=== PATIENT | male | born 1945 | race Caucasian/White ===

== ENCOUNTER 2017-01-17 02:24 | Emergency (ER) | payer OTHER, MEDICARE ==
[~2017-01-17 02:24] MED LIST: /ATOR40TA PO; /CARB4TA PO; AMLO10TA2 PO; ASPI1TAB PO; ASPI32ECTA PO; ASPI81CH3 PO; ASPI81TA13 PO; ASPI81TA85 PO; ATOR1TAB18 PO; BUSP15TA47 PO; CARB1TAB20 PO; CELE40TA PO; CITA20TA2 PO; CITA40TA PO; CITA40TA4 PO; CLOP75TA2 PO; DIAZ10TA2 PO; DIOV320T PO; ERGO500014 PO; FLAG500T PO; FOLI1TAB2 PO; FOLI1TAB86 PO; PANT40TA2 PO; SIMV20TA2 PO; TYLE325T5 PO; VALS1TAB48 PO; VITA-121 PO; VITA10002 PO; VITA500047 PO; ZOLP-189 PO; ZOLP10TA2 PO; avapro; carbamazepine PO; plavix PO
[2017-01-17 03:43] LABS: BASO % 0.6 % (0.0-1.0); EOS # 0.4 K/mm3 (0.0-0.50); EOS % 5.9 % (0.0-3.0); LARGE UNSTAINED CELL # 0.1 K/mm3 (0.0-0.4); LARGE UNSTAINED CELL % 1.6 % (0.0-4.0); LYMPH # 0.9 K/mm3 (1.5-4.5); MEAN CORPUSCULAR HEMOGLOBIN 30.3 pg (27.0-33.0); MEAN CORPUSCULAR HGB CONC 32.3 g/dl (32.0-36.5); MEAN CORPUSCULAR VOLUME 93.6 fl (80.0-96.0); MONO # 0.4 K/mm3 (0.0-0.8); MONO % 6.3 % (0.0-5.0); NEUTROPHILS # 4.7 K/mm3 (1.8-7.7); NEUTROPHILS % 73.7 % (36.0-66.0); PLATELET COUNT, AUTOMATED 159 k/mm3 (150-450); RED CELL DISTRIBUTION WIDTH 12.9 % (11.5-14.5); WHITE BLOOD COUNT 6.4 K/mm3 (4.0-10.0)
--- NOTE | 2017-01-17 04:00 | REPUSA ---
CLINICAL HISTORY: Syncope. TECHNIQUE: Multiple axial brain CT scan sections were obtained from base to vertex without contrast a dministration. COMMENTS: The study shows normal configuration of sella turcica. There are no intra or extra-axial collections. There is no mass effect or midline shift. There is no evidence of hematoma formation. No hydrocephal us is present. No abnormal calcifications are noted. No significant abnormalities are seen either in the posterior fossa or supratentorial compartment. The sinuses and mastoid air cells are patent. IMPRESSION: No evidence of acute intracranial pathology. Thank you for your kind referral of this patient.
[2017-01-17 04:06] LABS: CALCIUM LEVEL 7.8 MG/DL (8.8-10.2); CARBAMAZEPINE (TEGRETOL) LEVEL 7.9 UG/ML (4.0-10.0); CREATININE FOR GFR 2.63 MG/DL (0.70-1.30); GLOMERULAR FILTRATION RATE 25.7 (>42); POTASSIUM SERUM 4.8 MEQ/L (3.5-5.1)
--- NOTE | 2017-01-17 04:25 | EDDOCDS ---
Physician Documentation [facility] Name: Jonn Trent Age: 71 yrs Sex: Male : 1945 Arrival Date: 01/17/2017 Time: 02:24 Bed 11 [facility]position: 01/17/17 04:15 Discharged to Home/Self Care. Impression: Cognitive deficits following other cerebrovascular disease, Other symptoms and signs involving cognitive functions and awareness. - Condition is Stable. - Medication Reconciliation, Local Pharmacy Hours form. - [facility]; When: Call to arrange an appointment; Reason: Recheck today's complaints. - Problem is chronic. - Symptoms have improved. Historical: - Allergies: Zoloft (Rash); - Home Meds: 1. amlodipine 10 mg Oral tab 1 tab once daily 2. aspirin 81 mg Oral tab 1 tab once daily 3. atorvastatin 80 mg oral tab 1 tab nightly 4. carbamazepine 200 mg Oral tab 2 tabs every 12 hours 5. cholecalciferol (vitamin D3) 1,000 unit oral tab 1x/month 6. citalopram 40 mg Oral tab 1 tab once daily 7. cyanocobalamin (vitamin B-12) 1,000 mcg oral tab daily 8. diazepam 10 mg oral tab 2 times per day 9. folic acid 1 mg Oral tab 1 tab once daily 10. Protonix 40 mg Oral TbEC 1 tab once daily 11. valsartan 320 mg oral tab 1 tab once daily 12. prazosin 1 mg Oral cap nightly prn 13. Ambien 10 mg Oral tab 1 tab once daily - PMHx: Hypertension; Seizures; Stroke; PTSD; Depression; Anxiety; - PSHx: none; - Social history: Smoking status: Patient states was never smoker of tobacco. No barriers to communication noted, The patient speaks fluent Kiswahili. - Family history: Not pertinent. - : The pt / caregiver states he / she is not on anticoagulants. Home medication list is obtained from family members. - Exposure Risk Screening:: None identified. Vital Signs: 01/17 02:34 BP 194 / 81; Pulse 78; Resp 18; Temp 99.6(TE); Pulse Ox 97% on R/A; Weight 86.18 kg / rn1 189.99 lbs (R); Height 6 ft. 1 in. (185.42 cm) (R); Pain 0/10; 02:39 BP 176 / 81 (auto/); tm5 02:39 Pulse 76 MON; Pulse Ox 99% ; tm5 03:09 BP 163 / 86 (auto/); tm5 03:09 Pulse 74 MON; Pulse Ox 97% ; tm5 03:39 BP 169 / 83 (auto/); tm5 03:39 Pulse 72 MON; Resp 18 S; Pulse Ox 98% on R/A; Pain 0/10; tm5 04:14 BP 165 / 89; Pulse 89; Resp 18; Temp 98.0(O); Pulse Ox 98% on R/A; Pain 0/10; tm5 02:34 Body Mass Index 25.07 (86.18 kg, 185.42 cm) rn1 MDM: 03:15 CT Head Without Contrast Ordered. EDMS 03:23 ECG WITH READING ER PHYS+CARDIAG ordered. EDMS 03:23 CBC with Diff Ordered. EDMS 03:23 MED Profile Ordered. EDMS 03:23 Tegretol Level Ordered. EDMS 03:43 Financial registration complete. hs2 03:44 [facility] Payment Agreement was scanned into [employer] and attached to record. hs2 03:48 CBC with Diff Reviewed. cs11 04:08 MED Profile Reviewed. cs11 04:08 Tegretol Level Reviewed. cs11 Signatures: Dispatcher [employer] EDMS Karlos Gutiérrez, DO cs11 Maggie Goyal, Reg Reg hs2 Smitha Marroquin,RN RN tm5 The chart was reviewed and I authenticate all verbal orders and agree with the evaluation and treatment provided.Attachments: 03:44 [facility] [place] Agreement hs2 MTDD
--- NOTE | 2017-01-17 04:25 | EDDOCDS ---
Nurse's Notes [facility] Name: Jonn Trent Age: 71 yrs Sex: Male : 1945 Arrival Date: 01/17/2017 Time: 02:24 Bed 11 Private MD: [facility] JIMENEZ Diagnosis: Cognitive deficits following other cerebrovascular disease;Other symptoms and signs involving cognitive functions and awareness Presentation: 01/17 02:28 Presenting complaint: EMS states: per EMS pt with history of CVA, pt came downstairs tm5 tonight with unclear speech, confusion, NG FS 149, pt refused IV saline lock access, steady gait, per pt's pt went to bed about 0100 & this was last time known well, pt came downstairs about 0130 with garbled speech & pt's took BP which was very high she said, upon EMS arrival pt was acting normal with no neuro deficits. The last date and time the patient was known to be well was was at 01:00 on January 17, 2017. No acute neurological deficit is noted. The patients blood glucose was checked before arriving to the hospital and was found to be normal. Adult Sepsis Screening: The patient does not have new or worsening altered mentation. Patient's respiratory rate is less than 22. Systolic blood pressure is greater than 100. Patient has a qSOFA score of 0- Negative Sepsis Screen. Suicide/Homicide risk assessment- the patient denies having any suicidal and/or homicidal ideations and does not present with any other emotional, behavioral or mental health complaints. Status: The patient is a dependent. Transition of care: patient was not received from another setting of care. 02:28 Acuity: DEMARIO Level 3 tm5 02:28 Method Of Arrival: Ambulance tm5 Triage Assessment: 02:36 The onset of the patients symptoms was less than three hours ago. General: Appears in tm5 no apparent distress, Behavior is appropriate for age, cooperative. Pain: Denies pain. The patient is triaged at the bedside. See Assessment in Nurses Notes section of ED record. Neurological: Level of Consciousness is awake, alert, Oriented to person, time, Day Guard are equal bilaterally Moves all extremities. Full function Gait is steady, Speech is normal, Facial symmetry appears normal, Facial symmetry: tongue is midline, Pupils are PERRLA, Reports headache. Cardiovascular: Rhythm is sinus rhythm No ectopy. Respiratory: Airway is patent Respiratory effort is even, unlabored, Respiratory pattern is regular, symmetrical, Breath sounds are clear bilaterally. : No deficits noted. Derm: Skin is pink, warm & dry. Historical: - Allergies: Zoloft (Rash); - Home Meds: 1. amlodipine 10 mg Oral tab 1 tab once daily 2. aspirin 81 mg Oral tab 1 tab once daily 3. atorvastatin 80 mg oral tab 1 tab nightly 4. carbamazepine 200 mg Oral tab 2 tabs every 12 hours 5. cholecalciferol (vitamin D3) 1,000 unit oral tab 1x/month 6. citalopram 40 mg Oral tab 1 tab once daily 7. cyanocobalamin (vitamin B-12) 1,000 mcg oral tab daily 8. diazepam 10 mg oral tab 2 times per day 9. folic acid 1 mg Oral tab 1 tab once daily 10. Protonix 40 mg Oral TbEC 1 tab once daily 11. valsartan 320 mg oral tab 1 tab once daily 12. prazosin 1 mg Oral cap nightly prn 13. Ambien 10 mg Oral tab 1 tab once daily - PMHx: Hypertension; Seizures; Stroke; PTSD; Depression; Anxiety; - PSHx: none; - Social history: Smoking status: Patient states was never smoker of tobacco. No barriers to communication noted, The patient speaks fluent Lithuanian. - Family history: Not pertinent. - : The pt / caregiver states he / she is not on anticoagulants. Home medication list is obtained from family members. - Exposure Risk Screening:: None identified. Screenin:39 Screening information is obtained from the patient. Fall risk: No risks identified. tm5 Assistance ADL's: requires no assistance with activities of daily living. Abuse/DV Screen: The patient / caregiver reports he/she is: not in a situation that causes fear, pain or injury. Nutritional screening: No deficits noted. Advance Directives: Currently, there is a health care proxy, Dayanara Trent . There is no active DNR order. There is an active Power of Professor Of Art History, Dayanara Trent . home support is adequate. Assessment: 02:40 General: see triage assessment . tm5 02:42 General: pt refusing this RN to start IV at this time without seeing the MD first. tm5 03:58 Reassessment: Patient appears in no apparent distress at this time. Patient states tm5 feeling better. Patient states symptoms have improved. Neurological: Level of Consciousness is awake, alert, Oriented to person, place, time, Day Guard are equal bilaterally Moves all extremities. Full function Speech is normal, Facial symmetry appears normal, Facial symmetry: tongue is midline, Pupils are PERRLA. Vital Signs: 02:34 BP 194 / 81; Pulse 78; Resp 18; Temp 99.6(TE); Pulse Ox 97% on R/A; Weight 86.18 kg rn1 (R); Height 6 ft. 1 in. (185.42 cm) (R); Pain 0/10; 02:39 BP 176 / 81 (auto/); tm5 02:39 Pulse 76 MON; Pulse Ox 99% ; tm5 03:09 BP 163 / 86 (auto/); tm5 03:09 Pulse 74 MON; Pulse Ox 97% ; tm5 03:39 BP 169 / 83 (auto/); tm5 03:39 Pulse 72 MON; Resp 18 S; Pulse Ox 98% on R/A; Pain 0/10; tm5 04:14 BP 165 / 89; Pulse 89; Resp 18; Temp 98.0(O); Pulse Ox 98% on R/A; Pain 0/10; tm5 02:34 Body Mass Index 25.07 (86.18 kg, 185.42 cm) rn1 Vitals: 02:36 Glucose Measurement D-stick done by EMS. Log In Time N/A - ambulance arrival. tm5 ED Course: 02:26 Patient visited by Clay Pacheco PCA. kb5 02:26 [facility] is Private Physician. kb5 02:26 Patient moved to Waiting kb5 02:26 Patient moved to 11 kb5 02:28 Patient visited by Smitha Marroquin,MADELAINE. tm5 02:33 Triage Initiated tm5 02:36 Pt greeted and oriented to ED. Patient advised of names of staff involved in care, rn1 location of call fernández, wait times and NPO status. Placed in gown. Bed in low position. Call light in reach. Side rails up X2. 02:36 Family accompanied patient. tm5 02:39 Awaiting ED physician evaluation. tm5 02:39 The patient / caregiver is instructed regarding the plan of care and ED course. Cardiac tm5 monitor on. Pulse ox on. NIBP on. 02:42 Patient visited by Smitha Marroquin RN. tm5 02:44 Patient visited by Smitha Marroquin RN. tm5 02:59 Karlos Gutiérrez DO is Attending Physician. cs11 02:59 Patient visited by Karlos Gutiérrez DO. cs11 03:24 Patient visited by Smitha Marroquin RN. tm5 03:[address]. tm5 03:34 EKG done. (by ED staff). Reviewed by Karlos Gutiérrez DO. rn1 03:39 No procedures done that require assistance. tm5 03:40 Tegretol Level Sent. mdr 03:40 MED Profile Sent. mdr 03:40 CBC with Diff Sent. mdr 03:44 [facility] Payment Agreement was scanned into [employer] and attached to record. hs2 03:58 Patient visited by Smitha Marroquin RN. tm5 04:14 Patient visited by Smitha Marroquin RN. tm5 04:14 [facility] is Referral Physician. cs11 04:17 CT Head Without Contrast Returned. EDMS 04:23 Patient visited by Smitha Marroquin RN. tm5 04:23 No IV's were initiated during this patient's visit. tm5 Order Results: Lab Order: CBC with Diff; SPEC'M 01/17/ 03:38 Test: WHITE BLOOD COUNT; Value: 6.4; Range: 4.0-10.0; Units: K/mm3; Status: F Test: RED BLOOD COUNT; Value: 3.57; Range: 4.30-6.10; Abnormal: Below low normal; Units: M/mm3; Status: F Test: HEMOGLOBIN; Value: 10.8; Range: 14.0-18.0; Abnormal: Below low normal; Units: g/dl; Status: F Test: HEMATOCRIT; Value: 33.4; Range: 42.0-52.0; Abnormal: Below low normal; Units: %; Status: F Test: MEAN CORPUSCULAR VOLUME; Value: 93.6; Range: 80.0-96.0; Units: fl; Status: F Test: MEAN CORPUSCULAR HEMOGLOBIN; Value: 30.3; Range: 27.0-33.0; Units: pg; Status: F Test: MEAN CORPUSCULAR HGB CONC; Value: 32.3; Range: 32.0-36.5; Units: g/dl; Status: F Test: RED CELL DISTRIBUTION WIDTH; Value: 12.9; Range: 11.5-14.5; Units: %; Status: F Test: PLATELET COUNT, AUTOMATED; Value: 159; Range: 150-450; Units: k/mm3; Status: F Test: NEUTROPHILS %; Value: 73.7; Range: 36.0-66.0; Abnormal: Above high normal; Units: %; Status: F Test: LYMPH %; Value: 12.0; Range: 24.0-44.0; Abnormal: Below low normal; Units: %; Status: F Test: MONO %; Value: 6.3; Range: 0.0-5.0; Abnormal: Above high normal; Units: %; Status: F Test: EOS %; Value: 5.9; Range: 0.0-3.0; Abnormal: Above high normal; Units: %; Status: F Test: BASO %; Value: 0.6; Range: 0.0-1.0; Units: %; Status: F Test: LARGE UNSTAINED CELL %; Value: 1.6; Range: 0.0-4.0; Units: %; Status: F Test: NEUTROPHILS #; Value: 4.7; Range: 1.8-7.7; Units: K/mm3; Status: F Test: LYMPH #; Value: 0.9; Range: 1.5-4.5; Abnormal: Below low normal; Units: K/mm3; Status: F Test: MONO #; Value: 0.4; Range: 0.0-0.8; Units: K/mm3; Status: F Test: EOS #; Value: 0.4; Range: 0.0-0.50; Units: K/mm3; Status: F Test: BASO #; Value: 0.0; Range: 0.0-0.2; Units: K/mm3; Status: F Test: LARGE UNSTAINED CELL #; Value: 0.1; Range: 0.0-0.4; Units: K/mm3; Status: F Lab Order: MED Profile; [facility]01/17[facility]17 03:38 Test: GLUCOSE, FASTING; Value: 109; Range: 83-110; Units: MG/DL; Status: F Test: BLOOD UREA NITROGEN; Value: 26; Range: 7-18; Abnormal: Above high normal; Units: MG/DL; Status: F Test: CREATININE FOR GFR; Value: 2.63; Range: 0.70-1.30; Abnormal: Above high normal; Units: MG/DL; Status: F Test: GLOMERULAR FILTRATION RATE; Value: 25.7; Range: >42; Abnormal: Below low normal; Status: F Test: SODIUM LEVEL; Value: 145; Range: 136-145; Units: MEQ/L; Status: F Test: POTASSIUM SERUM; Value: 4.8; Range: 3.5-5.1; Units: MEQ/L; Status: F Test: CHLORIDE LEVEL; Value: 113; Range: 98-107; Abnormal: Above high normal; Units: MEQ/L; Status: F Test: CARBON DIOXIDE LEVEL; Value: 26; Range: 21-32; Units: MEQ/L; Status: F Test: ANION GAP; Value: 6; Range: 8-16; Abnormal: Below low normal; Units: MEQ/L; Status: F Test: CALCIUM LEVEL; Value: 7.8; Range: 8.8-10.2; Abnormal: Below low normal; Units: MG/DL; Status: F Test Note: ; Units are mL/min/1.73 m2 Chronic Kidney Disease Staging per NKF: Stage I & II GFR >=60 Normal to Mildly Decreased Stage III GFR 30-59 Moderately Decreased Stage IV GFR 15-29 Severely Decreased Stage V GFR <15 Very Little GFR Left ESRD GFR <15 on APPLICATION TESTER Lab Order: Tegretol Level; SPEC'M 01/17/17 03:38 Test: CARBAMAZEPINE (TEGRETOL) LEVEL; Value: 7.9; Range: 4.0-10.0; Units: UG/ML; Status: F Radiology Order: CT Head Without Contrast Test: CT Head Without Contrast REASON FOR EXAMINATION: Syncope; ; CLINICAL HISTORY: Syncope.; TECHNIQUE: Multiple axial brain CT scan sections were obtained from base to vertex without contrast a; dministration.; COMMENTS:; The study shows normal configuration of sella turcica. There are no intra or extra-axial collections.; There is no mass effect or midline shift. There is no evidence of hematoma formation. No hydrocephal; us is present. No abnormal calcifications are noted.; No significant abnormalities are seen either in the posterior fossa or supratentorial compartment.; The sinuses and mastoid air cells are patent.; IMPRESSION:; No evidence of acute intracranial pathology.; Thank you for your kind referral of this patient.; ; Outcome: 04:15 Discharge ordered by Provider. cs11 04:23 Discharge Assessment: Patient awake, alert and oriented x 3. No cognitive and/or tm5 functional deficits noted. Patient verbalized understanding of disposition instructions. patient administered narcotics - no. The following High Risk Discharge criteria are identified: None. Discharged to home ambulatory, with significant other. Condition: good Condition: stable. Discharge instructions given to patient, Instructed on discharge instructions, follow up and referral plans. Demonstrated understanding of instructions, Pt was receptive of discharge instructions/ teaching. CT Study completed. Property :Personal belongings accompany Pt. 04:24 Patient left the ED. tm5 Signatures: Dispatcher [employer] EDMS Clay Pacheco, FIRE ENGINE OPERATOR FIRE ENGINE OPERATOR kb5 Karlos Gutiérrez, DO DO cs11 Nathan Carbajal rn1 Demetrio Mcfarland, FIRE ENGINE OPERATOR FIRE ENGINE OPERATOR mdr Maggie Goyal, Reg Reg hs2 Smitha Marroquin,RN RN tm5 MTDD
--- NOTE | 2017-01-18 19:32 | ECGEPIP ---
Stationary ECG Study [facility] - ED Test Date: 2017-01-17 Pat Name: SYLVIA LINCOLN Department: Room: - Gender: M Cupboard Builder: rn : 1945 Requested By: MAUREEN FAM Order Number: [id number] Reading MD: Judy Antunez Measurements Intervals [place] Rate: 70 P: VT: 0 QRS: 42 QRSD: 89 T: 56 QT: 371 QTc: 401 Interpretive Statements SUPRAVENTRICULAR RHYTHM ATYPICAL ECG NSTTW ABNORMALITY BASELINE ARTIFACT LIMITS INTERPRETATION Electronically Signed On 01-18-2017 19:32:29 EST by Judy Antunez
--- NOTE | 2017-01-19 05:25 | EDDOCDS ---
[facility] Name: Jonn Trent Age: 71 yrs Sex: Male : 1945 Arrival Date: 01/17/2017 Time: 02:24 Bed 11 [facility] Disposition: 01/17/17 04:15 Discharged to Home/Self Care. Impression: Cognitive deficits following other cerebrovascular disease, Other symptoms and signs involving cognitive functions and awareness. - Condition is Stable. - Medication Reconciliation, Local Pharmacy Hours form. - [facility]; When: Call to arrange an appointment; Reason: Recheck today's complaints. - Problem is chronic. - Symptoms have improved. Historical: - Allergies: Zoloft (Rash); - Home Meds: 1. amlodipine 10 mg Oral tab 1 tab once daily 2. aspirin 81 mg Oral tab 1 tab once daily 3. atorvastatin 80 mg oral tab 1 tab nightly 4. carbamazepine 200 mg Oral tab 2 tabs every 12 hours 5. cholecalciferol (vitamin D3) 1,000 unit oral tab 1x/month 6. citalopram 40 mg Oral tab 1 tab once daily 7. cyanocobalamin (vitamin B-12) 1,000 mcg oral tab daily 8. diazepam 10 mg oral tab 2 times per day 9. folic acid 1 mg Oral tab 1 tab once daily 10. Protonix 40 mg Oral TbEC 1 tab once daily 11. valsartan 320 mg oral tab 1 tab once daily 12. prazosin 1 mg Oral cap nightly prn 13. Ambien 10 mg Oral tab 1 tab once daily - PMHx: Hypertension; Seizures; Stroke; PTSD; Depression; Anxiety; - PSHx: none; - Social history: Smoking status: Patient states was never smoker of tobacco. No barriers to communication noted, The patient speaks fluent Telugu. - Family history: Not pertinent. - : The pt / caregiver states he / she is not on anticoagulants. Home medication list is obtained from family members. - Exposure Risk Screening:: None identified. Vital Signs: 01/17 02:34 BP 194 / 81; Pulse 78; Resp 18; Temp 99.6(TE); Pulse Ox 97% on R/A; Weight 86.18 kg / rn1 189.99 lbs (R); Height 6 ft. 1 in. (185.42 cm) (R); Pain 0/10; 02:39 BP 176 / 81 (auto/); tm5 02:39 Pulse 76 MON; Pulse Ox 99% ; tm5 03:09 BP 163 / 86 (auto/); tm5 03:09 Pulse 74 MON; Pulse Ox 97% ; tm5 03:39 BP 169 / 83 (auto/); tm5 03:39 Pulse 72 MON; Resp 18 S; Pulse Ox 98% on R/A; Pain 0/10; tm5 04:14 BP 165 / 89; Pulse 89; Resp 18; Temp 98.0(O); Pulse Ox 98% on R/A; Pain 0/10; tm5 02:34 Body Mass Index 25.07 (86.18 kg, 185.42 cm) rn1 MDM: 03:15 CT Head Without Contrast Ordered. EDMS 03:23 ECG WITH READING ER PHYS+CARDIAG ordered. EDMS 03:23 CBC with Diff Ordered. EDMS 03:23 MED Profile Ordered. EDMS 03:23 Tegretol Level Ordered. EDMS 03:43 Financial registration complete. hs2 03:44 [facility] Payment Agreement was scanned into [employer] and attached to record. hs2 03:48 CBC with Diff Reviewed. cs11 04:08 MED Profile Reviewed. cs11 04:08 Tegretol Level Reviewed. cs11 14:02 T-Sheet-- Draft Copy was scanned into [employer] and attached to record. gb 14:03 ECG/EKG was scanned into [employer] and attached to record. gb Signatures: Dispatcher [employer] EDMS Moni Juarez, Reg Reg gb Karlos Gutiérrez, DO cs11 Maggie Goyal, Reg Reg hs2 Smitha Marroquin,RN RN tm5 The chart was reviewed and I authenticate all verbal orders and agree with the evaluation and treatment provided.Attachments: 03:44 [facility] [place] Payment Agreement hs2 14:02 T-Sheet-- Draft Copy gb 14:03 ECG/EKG gb Chart Complete MTDD
--- NOTE | 2017-01-19 05:25 | EDDOCDS ---
Nurse's Notes [facility] Name: Sylvia Trent Age: 71 yrs Sex: Male : 1945 Arrival Date: 01/17/2017 Time: 02:24 Bed 11 Private MD: VARGHESE JIMENEZ Diagnosis: Cognitive deficits following other cerebrovascular disease;Other symptoms and signs involving cognitive functions and awareness Presentation: 01/17 02:28 Presenting complaint: EMS states: per EMS pt with history of CVA, pt came downstairs tm5 tonight with unclear speech, confusion, NG FS 149, pt refused IV saline lock access, steady gait, per pt's pt went to bed about 0100 & this was last time known well, pt came downstairs about 0130 with garbled speech & pt's took BP which was very high she said, upon EMS arrival pt was acting normal with no neuro deficits. The last date and time the patient was known to be well was was at 01:00 on January 17, 2017. No acute neurological deficit is noted. The patients blood glucose was checked before arriving to the hospital and was found to be normal. Adult Sepsis Screening: The patient does not have new or worsening altered mentation. Patient's respiratory rate is less than 22. Systolic blood pressure is greater than 100. Patient has a qSOFA score of 0- Negative Sepsis Screen. Suicide/Homicide risk assessment- the patient denies having any suicidal and/or homicidal ideations and does not present with any other emotional, behavioral or mental health complaints. Status: The patient is a dependent. Transition of care: patient was not received from another setting of care. 02:28 Acuity: DEMARIO Level 3 tm5 02:28 Method Of Arrival: Ambulance tm5 Triage Assessment: 02:36 The onset of the patients symptoms was less than three hours ago. General: Appears in tm5 no apparent distress, Behavior is appropriate for age, cooperative. Pain: Denies pain. The patient is triaged at the bedside. See Assessment in Nurses Notes section of ED record. Neurological: Level of Consciousness is awake, alert, Oriented to person, time, Extractive Metallurgist are equal bilaterally Moves all extremities. Full function Gait is steady, Speech is normal, Facial symmetry appears normal, Facial symmetry: tongue is midline, Pupils are PERRLA, Reports headache. Cardiovascular: Rhythm is sinus rhythm No ectopy. Respiratory: Airway is patent Respiratory effort is even, unlabored, Respiratory pattern is regular, symmetrical, Breath sounds are clear bilaterally. : No deficits noted. Derm: Skin is pink, warm & dry. Historical: - Allergies: Zoloft (Rash); - Home Meds: 1. amlodipine 10 mg Oral tab 1 tab once daily 2. aspirin 81 mg Oral tab 1 tab once daily 3. atorvastatin 80 mg oral tab 1 tab nightly 4. carbamazepine 200 mg Oral tab 2 tabs every 12 hours 5. cholecalciferol (vitamin D3) 1,000 unit oral tab 1x/month 6. citalopram 40 mg Oral tab 1 tab once daily 7. cyanocobalamin (vitamin B-12) 1,000 mcg oral tab daily 8. diazepam 10 mg oral tab 2 times per day 9. folic acid 1 mg Oral tab 1 tab once daily 10. Protonix 40 mg Oral TbEC 1 tab once daily 11. valsartan 320 mg oral tab 1 tab once daily 12. prazosin 1 mg Oral cap nightly prn 13. Ambien 10 mg Oral tab 1 tab once daily - PMHx: Hypertension; Seizures; Stroke; PTSD; Depression; Anxiety; - PSHx: none; - Social history: Smoking status: Patient states was never smoker of tobacco. No barriers to communication noted, The patient speaks fluent Israeli. - Family history: Not pertinent. - : The pt / caregiver states he / she is not on anticoagulants. Home medication list is obtained from family members. - Exposure Risk Screening:: None identified. Screenin:39 Screening information is obtained from the patient. Fall risk: No risks identified. tm5 Assistance ADL's: requires no assistance with activities of daily living. Abuse/DV Screen: The patient / caregiver reports he/she is: not in a situation that causes fear, pain or injury. Nutritional screening: No deficits noted. Advance Directives: Currently, there is a health care proxy, Dayanara Trent . There is no active DNR order. There is an active Power of Cell Tender Helper, Dayanara Trent . home support is adequate. Assessment: 02:40 General: see triage assessment . tm5 02:42 General: pt refusing this RN to start IV at this time without seeing the MD first. tm5 03:58 Reassessment: Patient appears in no apparent distress at this time. Patient states tm5 feeling better. Patient states symptoms have improved. Neurological: Level of Consciousness is awake, alert, Oriented to person, place, time, Extractive Metallurgist are equal bilaterally Moves all extremities. Full function Speech is normal, Facial symmetry appears normal, Facial symmetry: tongue is midline, Pupils are PERRLA. Vital Signs: 02:34 BP 194 / 81; Pulse 78; Resp 18; Temp 99.6(TE); Pulse Ox 97% on R/A; Weight 86.18 kg rn1 (R); Height 6 ft. 1 in. (185.42 cm) (R); Pain 0/10; 02:39 BP 176 / 81 (auto/); tm5 02:39 Pulse 76 MON; Pulse Ox 99% ; tm5 03:09 BP 163 / 86 (auto/); tm5 03:09 Pulse 74 MON; Pulse Ox 97% ; tm5 03:39 BP 169 / 83 (auto/); tm5 03:39 Pulse 72 MON; Resp 18 S; Pulse Ox 98% on R/A; Pain 0/10; tm5 04:14 BP 165 / 89; Pulse 89; Resp 18; Temp 98.0(O); Pulse Ox 98% on R/A; Pain 0/10; tm5 02:34 Body Mass Index 25.07 (86.18 kg, 185.42 cm) rn1 Vitals: 02:36 Glucose Measurement D-stick done by EMS. Log In Time N/A - ambulance arrival. tm5 ED Course: 02:26 Patient visited by Clay Pacheco PCA. kb5 02:26 [facility] is Private Physician. kb5 02:26 Patient moved to Waiting kb5 02:26 Patient moved to 11 kb5 02:28 Patient visited by Smitha Marroquin,MADELAINE. tm5 02:33 Triage Initiated tm5 02:36 Pt greeted and oriented to ED. Patient advised of names of staff involved in care, rn1 location of call fernández, wait times and NPO status. Placed in gown. Bed in low position. Call light in reach. Side rails up X2. 02:36 Family accompanied patient. tm5 02:39 Awaiting ED physician evaluation. tm5 02:39 The patient / caregiver is instructed regarding the plan of care and ED course. Cardiac tm5 monitor on. Pulse ox on. NIBP on. 02:42 Patient visited by Smitha Marroquin RN. tm5 02:44 Patient visited by Smitha Marroquin RN. tm5 02:59 Karlos Fam DO is Attending Physician. cs11 02:59 Patient visited by Karlos Fam DO. cs11 03:24 Patient visited by Smitha Marroquin RN. tm5 03:24 Patient moved back from CT. tm5 03:34 EKG done. (by ED staff). Reviewed by Karlos Fam DO. rn1 03:39 No procedures done that require assistance. tm5 03:40 Tegretol Level Sent. mdr 03:40 MED Profile Sent. mdr 03:40 CBC with Diff Sent. mdr 03:44 [facility] [place] Payment Agreement was scanned into [email or web address] and attached to record. hs2 03:58 Patient visited by Smitha Marroquin RN. tm5 04:14 Patient visited by Smitha Marroquin RN. tm5 04:14 [facility] is Referral Physician. cs11 04:17 CT Head Without Contrast Returned. EDMS 04:23 Patient visited by Smitha Marroquin RN. tm5 04:23 No IV's were initiated during this patient's visit. tm5 14:02 T-Sheet-- Draft Copy was scanned into [email or web address] and attached to record. gb 14:03 ECG/EKG was scanned into [email or web address] and attached to record. gb 01/18 20:02 EKG-ADULT Returned. EDMS Order Results: Lab Order: CBC with Diff; SPEC'M 01/17/17 03:38 Test: WHITE BLOOD COUNT; Value: 6.4; Range: 4.0-10.0; Units: K/mm3; Status: F Test: RED BLOOD COUNT; Value: 3.57; Range: 4.30-6.10; Abnormal: Below low normal; Units: M/mm3; Status: F Test: HEMOGLOBIN; Value: 10.8; Range: 14.0-18.0; Abnormal: Below low normal; Units: g/dl; Status: F Test: HEMATOCRIT; Value: 33.4; Range: 42.0-52.0; Abnormal: Below low normal; Units: %; Status: F Test: MEAN CORPUSCULAR VOLUME; Value: 93.6; Range: 80.0-96.0; Units: fl; Status: F Test: MEAN CORPUSCULAR HEMOGLOBIN; Value: 30.3; Range: 27.0-33.0; Units: pg; Status: F Test: MEAN CORPUSCULAR HGB CONC; Value: 32.3; Range: 32.0-36.5; Units: g/dl; Status: F Test: RED CELL DISTRIBUTION WIDTH; Value: 12.9; Range: 11.5-14.5; Units: %; Status: F Test: PLATELET COUNT, AUTOMATED; Value: 159; Range: 150-450; Units: k/mm3; Status: F Test: NEUTROPHILS %; Value: 73.7; Range: 36.0-66.0; Abnormal: Above high normal; Units: %; Status: F Test: LYMPH %; Value: 12.0; Range: 24.0-44.0; Abnormal: Below low normal; Units: %; Status: F Test: MONO %; Value: 6.3; Range: 0.0-5.0; Abnormal: Above high normal; Units: %; Status: F Test: EOS %; Value: 5.9; Range: 0.0-3.0; Abnormal: Above high normal; Units: %; Status: F Test: BASO %; Value: 0.6; Range: 0.0-1.0; Units: %; Status: F Test: LARGE UNSTAINED CELL %; Value: 1.6; Range: 0.0-4.0; Units: %; Status: F Test: NEUTROPHILS #; Value: 4.7; Range: 1.8-7.7; Units: K/mm3; Status: F Test: LYMPH #; Value: 0.9; Range: 1.5-4.5; Abnormal: Below low normal; Units: K/mm3; Status: F Test: MONO #; Value: 0.4; Range: 0.0-0.8; Units: K/mm3; Status: F Test: EOS #; Value: 0.4; Range: 0.0-0.50; Units: K/mm3; Status: F Test: BASO #; Value: 0.0; Range: 0.0-0.2; Units: K/mm3; Status: F Test: LARGE UNSTAINED CELL #; Value: 0.1; Range: 0.0-0.4; Units: K/mm3; Status: F Lab Order: MED Profile; SPEC'01/17/17 03:38 Test: GLUCOSE, FASTING; Value: 109; Range: 83-110; Units: MG/DL; Status: F Test: BLOOD UREA NITROGEN; Value: 26; Range: 7-18; Abnormal: Above high normal; Units: MG/DL; Status: F Test: CREATININE FOR GFR; Value: 2.63; Range: 0.70-1.30; Abnormal: Above high normal; Units: MG/DL; Status: F Test: GLOMERULAR FILTRATION RATE; Value: 25.7; Range: >42; Abnormal: Below low normal; Status: F Test: SODIUM LEVEL; Value: 145; Range: 136-145; Units: MEQ/L; Status: F Test: POTASSIUM SERUM; Value: 4.8; Range: 3.5-5.1; Units: MEQ/L; Status: F Test: CHLORIDE LEVEL; Value: 113; Range: 98-107; Abnormal: Above high normal; Units: MEQ/L; Status: F Test: CARBON DIOXIDE LEVEL; Value: 26; Range: 21-32; Units: MEQ/L; Status: F Test: ANION GAP; Value: 6; Range: 8-16; Abnormal: Below low normal; Units: MEQ/L; Status: F Test: CALCIUM LEVEL; Value: 7.8; Range: 8.8-10.2; Abnormal: Below low normal; Units: MG/DL; Status: F Test Note: ; Units are mL/min/1.73 m2 Chronic Kidney Disease Staging per NKF: Stage I & II GFR >=60 Normal to Mildly Decreased Stage III GFR 30-59 Moderately Decreased Stage IV GFR 15-29 Severely Decreased Stage V GFR <15 Very Little GFR Left ESRD GFR <15 on COASTAL AND ESTUARY SPECIALIST Lab Order: Tegretol Level; SPEC'01/17/17 03:38 Test: CARBAMAZEPINE (TEGRETOL) LEVEL; Value: 7.9; Range: 4.0-10.0; Units: UG/ML; Status: F Radiology Order: CT Head Without Contrast Test: CT Head Without Contrast REASON FOR EXAMINATION: Syncope; ; CLINICAL HISTORY: Syncope.; TECHNIQUE: Multiple axial brain CT scan sections were obtained from base to vertex without contrast a; dministration.; COMMENTS:; The study shows normal configuration of sella turcica. There are no intra or extra-axial collections.; There is no mass effect or midline shift. There is no evidence of hematoma formation. No hydrocephal; us is present. No abnormal calcifications are noted.; No significant abnormalities are seen either in the posterior fossa or supratentorial compartment.; The sinuses and mastoid air cells are patent.; IMPRESSION:; No evidence of acute intracranial pathology.; Thank you for your kind referral of this patient.; ; Radiology Order: EKG-ADULT Test: EKG-ADULT REASON FOR EXAMINATION: Syncope; Stationary ECG Study; [facility] - ED; ; Test Date: 2017-01-17; Pat Name: SYLVIA TRENT Department:; Room: -; Gender: M Nursing Unit Coordinator: rn; : 1945 Requested By: KARLOS FAM; Order Number: [id number] Reading MD: Juyd Antunez; Measurements; Intervals [place]; Rate: 70 P:; CT: 0 QRS: 42; QRSD: 89 T: 56; QT: 371; QTc: 401; Interpretive Statements; SUPRAVENTRICULAR RHYTHM; ATYPICAL ECG; NSTTW ABNORMALITY; BASELINE ARTIFACT LIMITS INTERPRETATION; Electronically Signed On 01-18-2017 19:32:29 EST by Judy Antunez; Outcome: 01/17 04:15 Discharge ordered by Provider. cs11 04:23 Discharge Assessment: Patient awake, alert and oriented x 3. No cognitive and/or tm5 functional deficits noted. Patient verbalized understanding of disposition instructions. patient administered narcotics - no. The following High Risk Discharge criteria are identified: None. Discharged to home ambulatory, with significant other. Condition: good Condition: stable. Discharge instructions given to patient, Instructed on discharge instructions, follow up and referral plans. Demonstrated understanding of instructions, Pt was receptive of discharge instructions/ teaching. CT Study completed. Property :Personal belongings accompany Pt. 04:24 Patient left the ED. tm5 Signatures: Dispatcher [employer] EDMS Moni Juarez, Reg Reg gb Clay Pacheco, FUNERAL PROFESSIONAL FUNERAL PROFESSIONAL kb5 Karlos Fam DO DO cs11 Nathan Carbajal rn1 Demetrio Mcfarland, FUNERAL PROFESSIONAL FUNERAL PROFESSIONAL mdr Maggie Goyal, Reg Reg hs2 Smitha Marroquin,RN RN tm5 Chart Complete MTDD
--- NOTE | 2017-01-19 05:25 | EDDOCDS ---
Physician Documentation [facility] Name: Jonn Trent Age: 71 yrs Sex: Male : 1945 Arrival Date: 01/17/2017 Time: 02:24 Bed 11 [facility] Disposition: 01/17/17 04:15 Discharged to Home/Self Care. Impression: Cognitive deficits following other cerebrovascular disease, Other symptoms and signs involving cognitive functions and awareness. - Condition is Stable. - Medication Reconciliation, Local Pharmacy Hours form. - [facility]; When: Call to arrange an appointment; Reason: Recheck today's complaints. - Problem is chronic. - Symptoms have improved. Historical: - Allergies: Zoloft (Rash); - Home Meds: 1. amlodipine 10 mg Oral tab 1 tab once daily 2. aspirin 81 mg Oral tab 1 tab once daily 3. atorvastatin 80 mg oral tab 1 tab nightly 4. carbamazepine 200 mg Oral tab 2 tabs every 12 hours 5. cholecalciferol (vitamin D3) 1,000 unit oral tab 1x/month 6. citalopram 40 mg Oral tab 1 tab once daily 7. cyanocobalamin (vitamin B-12) 1,000 mcg oral tab daily 8. diazepam 10 mg oral tab 2 times per day 9. folic acid 1 mg Oral tab 1 tab once daily 10. Protonix 40 mg Oral TbEC 1 tab once daily 11. valsartan 320 mg oral tab 1 tab once daily 12. prazosin 1 mg Oral cap nightly prn 13. Ambien 10 mg Oral tab 1 tab once daily - PMHx: Hypertension; Seizures; Stroke; PTSD; Depression; Anxiety; - PSHx: none; - Social history: Smoking status: Patient states was never smoker of tobacco. No barriers to communication noted, The patient speaks fluent Czech. - Family history: Not pertinent. - : The pt / caregiver states he / she is not on anticoagulants. Home medication list is obtained from family members. - Exposure Risk Screening:: None identified. Vital Signs: 01/17 02:34 BP 194 / 81; Pulse 78; Resp 18; Temp 99.6(TE); Pulse Ox 97% on R/A; Weight 86.18 kg / rn1 189.99 lbs (R); Height 6 ft. 1 in. (185.42 cm) (R); Pain 0/10; 02:39 BP 176 / 81 (auto/); tm5 02:39 Pulse 76 MON; Pulse Ox 99% ; tm5 03:09 BP 163 / 86 (auto/); tm5 03:09 Pulse 74 MON; Pulse Ox 97% ; tm5 03:39 BP 169 / 83 (auto/); tm5 03:39 Pulse 72 MON; Resp 18 S; Pulse Ox 98% on R/A; Pain 0/10; tm5 04:14 BP 165 / 89; Pulse 89; Resp 18; Temp 98.0(O); Pulse Ox 98% on R/A; Pain 0/10; tm5 02:34 Body Mass Index 25.07 (86.18 kg, 185.42 cm) rn1 MDM: 03:15 CT Head Without Contrast Ordered. EDMS 03:23 ECG WITH READING ER PHYS+CARDIAG ordered. EDMS 03:23 CBC with Diff Ordered. EDMS 03:23 MED Profile Ordered. EDMS 03:23 Tegretol Level Ordered. EDMS 03:43 Financial registration complete. hs2 03:44 [facility] Payment Agreement was scanned into [employer] and attached to record. hs2 03:48 CBC with Diff Reviewed. cs11 04:08 MED Profile Reviewed. cs11 04:08 Tegretol Level Reviewed. cs11 14:02 T-Sheet-- Draft Copy was scanned into [employer] and attached to record. gb 14:03 ECG/EKG was scanned into [employer] and attached to record. gb Signatures: Dispatcher [employer] EDMS Moni Juarez, Reg Reg gb Karlos Gutiérrez, DO cs11 Maggie Goyal, Reg Reg hs2 Smitha Marroquin,RN RN tm5 The chart was reviewed and I authenticate all verbal orders and agree with the evaluation and treatment provided.Attachments: 03:44 [facility] Payment Agreement hs2 14:02 T-Sheet-- Draft Copy gb 14:03 ECG/EKG gb Chart Complete MTDD
== END 2017-01-17 04:24 | disposition home or self-care (01) ==
LOC: M ED 02:24
DX: I69.818 Other symptoms and signs involving cognitive functions following other cerebrovascular disease (principal); I10 Essential (primary) hypertension; R56.9 Unspecified convulsions; F43.10 Post-traumatic stress disorder, unspecified; F32.9 Major depressive disorder, single episode, unspecified; F41.9 Anxiety disorder, unspecified; Z86.73 Personal history of transient ischemic attack (TIA), and cerebral infarction without residual deficits; Z79.82 Long term (current) use of aspirin; Z79.899 Other long term (current) drug therapy; Z88.8 Allergy status to other drugs, medicaments and biological substances

== ENCOUNTER → 2017-02-07 | Outpatient (CLI) | payer OTHER ==
[2017-02-07 18:13] LABS: URIC ACID 8.2 MG/DL (3.5-7.2)
== END ==
LOC: M LAB 16:32
PROVIDERS: ATTEND Emergency Medicine
DX: E78.2 Mixed hyperlipidemia (principal); M10.9 Gout, unspecified

== ENCOUNTER 2017-07-29 17:56 | Emergency (ER) | payer OTHER ==
[~2017-07-29] VITALS: Ht 185.4 cm; Wt 82.7 kg
[~2017-07-29 17:56] MED LIST changes: +ASPI325T24 PO; -ASPI32ECTA PO; -ASPI81TA13 PO; +ASPI81TA24 PO; -ATOR1TAB18 PO; +ATOR80TA59 PO; -FOLI1TAB2 PO; +FOLI1TAB4 PO
[2017-07-29] MEDS ORDERED: PRAZ1CAP PO (18:16)
[2017-07-29] MEDS ORDERED: PROZ10CA7 PO (18:16)
[2017-07-29] MEDS ORDERED: HYDR12.55 PO (18:16)
[2017-07-29 19:09] LABS: BASO % 0.4 % (0.0-1.0); EOS # 0.2 K/mm3 (0.0-0.50); EOS % 2.6 % (0.0-3.0); LARGE UNSTAINED CELL # 0.1 K/mm3 (0.0-0.4); LARGE UNSTAINED CELL % 1.4 % (0.0-4.0); LYMPH # 0.6 K/mm3 (1.5-4.5); LYMPH % 9.6 % (24.0-44.0); MEAN CORPUSCULAR HEMOGLOBIN 31.1 pg (27.0-33.0); MEAN CORPUSCULAR HGB CONC 33.2 g/dl (32.0-36.5); MEAN CORPUSCULAR VOLUME 93.7 fl (80.0-96.0); MONO # 0.3 K/mm3 (0.0-0.8); MONO % 4.8 % (0.0-5.0); NEUTROPHILS # 4.9 K/mm3 (1.8-7.7); NEUTROPHILS % 81.3 % (36.0-66.0); PLATELET COUNT, AUTOMATED 183 k/mm3 (150-450); RED CELL DISTRIBUTION WIDTH 13.3 % (11.5-14.5)
--- NOTE | 2017-07-29 19:13 | REP ---
CT brain without contrast: History: CVA. Comparison study January 17, 2017. Findings: Bone window settings demonstrate an intact bony calvarium. Visualized paranasal sinuses are clear. No intraorbital abnormality is seen. There is mild diffuse cerebral atrophy. Mild vascular calcification is seen in the distal carotid arteries. There is no evidence of intracranial hemorrhage. There are low density areas in the head of the caudate nucleus on the right and in the periventricular white matter of the frontal lobes bilaterally consistent with small vessel changes. These are stable when compared with the January 17, 2017 prior study. No evidence of infarction, extra-axial fluid collection, mass or midline shift. Impression: Vascular calcification, mild diffuse atrophy, and small vessel changes. No acute intracranial abnormality. Signed by Josr Lucas MD 07/29/2017 08:03 P
[2017-07-29 19:14] LABS: INR 1.08
--- NOTE | 2017-07-29 19:14 | REP ---
Chest x-ray: Single view. History: CVA. Comparison study: March 04, 2016. Findings: The lungs are symmetrically aerated and clear. Pleural angles are sharp. Cardiomediastinal silhouette is unremarkable. No bony abnormality is seen. Impression: No active disease. Signed by Josr Lucas MD 07/29/2017 08:03 P
[2017-07-29 19:37] LABS: ANION GAP 12 MEQ/L (8-16); BLOOD UREA NITROGEN 23 MG/DL (7-18); CALCIUM LEVEL 7.7 MG/DL (8.8-10.2); CARBON DIOXIDE LEVEL 21 MEQ/L (21-32); CHLORIDE LEVEL 111 MEQ/L (98-107); CREATININE FOR GFR 2.33 MG/DL (0.70-1.30); GLOMERULAR FILTRATION RATE 29.5 (>42); GLUCOSE, FASTING 91 MG/DL (83-110); POTASSIUM SERUM 4.2 MEQ/L (3.5-5.1); SODIUM LEVEL 144 MEQ/L (136-145)
[2017-07-29 21:30] VITALS: BP 165/84
--- NOTE | 2017-07-30 09:42 | ECGEPIP ---
Stationary ECG Study [facility] - ED Test Date: 2017-07-29 Pat Name: SYLVIA LINCOLN Department: Room: - Gender: M Collections Clerk: rn : 1945 Requested By: Daniel Christensen Order Number: [id number] Reading MD: Judy Antunez Measurements Intervals [place] Rate: 64 P: 38 NE: 164 QRS: 31 QRSD: 95 T: 63 QT: 378 QTc: 391 Interpretive Statements SINUS RHYTHM Electronically Signed On 07-30-2017 9:42:28 EDT by Judy Antunez
== END 2017-07-29 21:31 | disposition home or self-care (01) ==
LOC: EDBD 17:56 → M ED 17:56
DX: I69.918 Other symptoms and signs involving cognitive functions following unspecified cerebrovascular disease (principal); I10 Essential (primary) hypertension; F41.9 Anxiety disorder, unspecified; N28.9 Disorder of kidney and ureter, unspecified; Z79.899 Other long term (current) drug therapy; Z79.82 Long term (current) use of aspirin; Z88.8 Allergy status to other drugs, medicaments and biological substances

== ENCOUNTER 2017-09-04 19:35 | Emergency (ER) | payer OTHER ==
[~2017-09-04] VITALS: Ht 188 cm; Wt 81.8 kg
[2017-09-04 19:35] VITALS: BP 148/75
[~2017-09-04 19:35] MED LIST changes: +HYDR12.55 PO; +PRAZ1CAP PO; +PROZ10CA7 PO
[2017-09-05] MEDS ORDERED: ALLO100T (14:57)
== END 2017-09-04 20:50 | disposition left against medical advice (07) ==
LOC: M ED 19:35
DX: M25.551 Pain in right hip (principal); Z53.29 Procedure and treatment not carried out because of patient's decision for other reasons

== ENCOUNTER 2017-09-05 14:49 | Emergency (ER) | payer OTHER ==
[~2017-09-05] VITALS: Ht 185.4 cm; Wt 81.8 kg
[2017-09-05 14:49] VITALS: BP 123/67
[~2017-09-05 14:49] MED LIST changes: -ALLO100T
[2017-09-05] MEDS ORDERED: ALLO100T (14:57)
== END 2017-09-05 15:44 | disposition left against medical advice (07) ==
LOC: M ED 14:49
DX: R68.89 Other general symptoms and signs (principal); Z53.29 Procedure and treatment not carried out because of patient's decision for other reasons

== ENCOUNTER → 2017-09-05 | Outpatient (CLI) | payer OTHER ==
[~2017-09-05] MED LIST changes: +ALLO100T
[2017-09-05 19:46] LABS: BASO # 0.1 10^3/uL (0.0-0.2); BASO % 0.8 % (0.0-1.0); EOS # 0.2 10^3/uL (0.0-0.50); EOS % 3.1 % (0.0-3.0); IMMATURE GRANULOCYTE % 0.4 % (0-0); MEAN CORPUSCULAR HEMOGLOBIN 30.8 pg (27.0-33.0); MEAN CORPUSCULAR HGB CONC 32.4 g/dl (32.0-36.5); MEAN CORPUSCULAR VOLUME 95.1 fl (80.0-96.0); MONO # 0.6 10^3/uL (0.0-0.8); MONO % 7.7 % (0.0-5.0); NEUTROPHILS # 5.5 10^3/uL (1.8-7.7); PLATELET COUNT, AUTOMATED 194 10^3/uL (150-450); RED CELL DISTRIBUTION WIDTH 13.3 % (11.5-14.5); WHITE BLOOD COUNT 7.4 10^3/uL (4.0-10.0)
[2017-09-05 19:51] LABS: ADD MORPHOLOGY? NO
[2017-09-05 19:57] LABS: CALCIUM LEVEL 7.8 MG/DL (8.8-10.2); CREATININE FOR GFR 2.31 MG/DL (0.70-1.30); GLOMERULAR FILTRATION RATE 29.8 (>42); URIC ACID 7.2 MG/DL (3.5-7.2)
--- NOTE | 2017-09-05 20:00 | REP ---
RIGHT HIP, TWO VIEWS: Two views of the right hip are performed. There is no acute fracture or dislocation. There is mild joint space narrowing and subchondral sclerosis at the hip joint. There is mild cortical undulation at the inferior aspect of the femoral neck which is unchanged since the prior study of 02/17/2014, possibly representing sequela from an old injury. Again there is no change since the prior exam. IMPRESSION: Mild degenerative changes with no acute abnormality. Signed by Neal Dumont MD 09/06/2017 02:43 P
--- NOTE | 2017-09-05 20:07 | REP ---
RIGHT FOOT SERIES: Four views of the right foot are performed. I see no acute fracture or dislocation. There is mild inferior calcaneal spurring. Oval calcification between the base of first and second metatarsals may represent an accessory ossicle. There is mild narrowing and subchondral sclerosis at the first metatarsophalangeal joint. Erosive changes are seen of the head of the second metatarsal. IMPRESSION: Degenerative changes as above. Signed by Neal Dumont MD 09/06/2017 02:43 P
== END ==
LOC: M WUC 17:01
PROVIDERS: ATTEND Physician Assistant
DX: M79.674 Pain in right toe(s) (principal)

== ENCOUNTER 2018-04-29 00:27 | Inpatient (IN) | payer OTHER ==
[2018-04-29 01:39] LABS: BASO # 0.1 10^3/uL (0.0-0.2); BASO % 0.6 % (0.0-1.0); EOS # 0.2 10^3/uL (0.0-0.50); EOS % 2.2 % (0.0-3.0); HEMATOCRIT 32.6 % (42.0-52.0); HEMOGLOBIN 10.6 g/dl (13.5-17.5); IMMATURE GRANULOCYTE % 0.4 % (0-3.0); LYMPH # 1.3 10^3/uL (1.5-4.5); LYMPH % 16.1 % (24.0-44.0); MEAN CORPUSCULAR HEMOGLOBIN 30.4 pg (27.0-33.0); MEAN CORPUSCULAR HGB CONC 32.5 g/dl (32.0-36.5); MEAN CORPUSCULAR VOLUME 93.4 fl (80.0-96.0); MONO # 0.4 10^3/uL (0.0-0.8); MONO % 5.5 % (0.0-5.0); NEUTROPHILS % 75.2 % (36.0-66.0); PLATELET COUNT, AUTOMATED 211 10^3/uL (150-450); RED BLOOD COUNT 3.49 10^6/uL (4.30-6.10); RED CELL DISTRIBUTION WIDTH 13.4 % (11.5-14.5)
[2018-04-29 01:45] LABS: INR 0.94; PROTHROMBIN TIME 12.7 SECONDS (12.4-14.5)
[2018-04-29 01:46] LABS: PARTIAL THROMBOPLASTIN TIME 21.8 SECONDS (26.8-37.9)
[2018-04-29 01:47] LABS: ANION GAP 9 MEQ/L (8-16); BLOOD UREA NITROGEN 32 MG/DL (7-18); CARBON DIOXIDE LEVEL 22 MEQ/L (21-32); CHLORIDE LEVEL 111 MEQ/L (98-107); CPK CREATINE PHOSPHOKINASE 90 U/L (39-308); CREATININE FOR GFR 3.01 MG/DL (0.70-1.30); GLOMERULAR FILTRATION RATE 21.9 (>42); GLUCOSE, FASTING 116 MG/DL (70-100); POTASSIUM SERUM 4.7 MEQ/L (3.5-5.1); SODIUM LEVEL 142 MEQ/L (136-145); TROPONIN I < 0.02 NG/ML (< 0.10)
[2018-04-29 01:48] LABS: CK-MB VALUE MASS 1.9 NG/ML (<3.6); MB/CK RELATIVE INDEX 2.11 (< OR =4)
[2018-04-29] MEDS: ONDANSETRON 4MG/2ML VIAL (J2405) IV (01:49)
[2018-04-29] MEDS: NS 500 ML IV (01:49)
[2018-04-29] MEDS: METOCLOPRAMIDE INJ 10MG/2ML VIAL (J2765) IV ×2 (04:17→13:40)
[2018-04-29] MEDS: MORPHINE 4 MG/ML 1ML VIAL/SYRINGE (J2270) IV ×2 (04:18→06:21)
[2018-04-29] MEDS: NS 1,000 ML IV (06:11)
[2018-04-29] MEDS ORDERED: BISACODYL 10 MG SUPP PR (06:15)
[2018-04-29] MEDS ORDERED: PERCOCET 5MG/325MG TAB PO (06:15)
[2018-04-29] MEDS ORDERED: MORPHINE 4 MG/ML 1ML VIAL/SYRINGE (J2270) IV (06:15)
[2018-04-29] MEDS ORDERED: ACETAMINOPHEN TAB 650MG DOSE (2X325MG) PO (06:15)
[2018-04-29] MEDS ORDERED: diazePAM 5 MG TAB PO (06:45)
[2018-04-29 07:29] LABS: TROPONIN I 0.03 NG/ML (< 0.10)
[2018-04-29 08:34] LABS: CHOLESTEROL LEVEL 165 MG/DL (<200); HDL CHOLESTEROL 73 MG/DL (>40); LDL CHOLESTEROL 76.6 MG/DL (<100); NON-HDL-C 92 MG/DL; TRIGLYCERIDES LEVEL 77 MG/DL (<150)
[2018-04-29 08:42] LABS: ESTIMATED AVERAGE GLUCOSE 103 MG/DL (60-110); HEMOGLOBIN A1c 5.2 %
[2018-04-29] MEDS ORDERED: ASPIRIN 81 MG ENTERIC TAB PO (09:00)
[2018-04-29] MEDS ORDERED: PANTOPRAZOLE 40MG TAB (PROTONIX) PO (09:00)
[2018-04-29] MEDS: SENOKOT S TAB PO ×3 (09:00→20:52)
[2018-04-29] MEDS: ASPIRIN 81 MG ENTERIC TAB PO (09:08)
[2018-04-29] MEDS: ATORVASTATIN 20 MG TAB PO (09:08)
[2018-04-29 09:53] LABS: APPEARANCE, URINE CLEAR (CLEAR); BACTERIA, URINE AUTO NEGATIVE (NEGATIVE); BILIRUBIN, URINE AUTO NEGATIVE (NEGATIVE); BLOOD, URINE BLOOD NEGATIVE (NEGATIVE); COLOR, URINE YELLOW (YELLOW); GLUCOSE, URINE (UA) AUTO NEGATIVE (NEGATIVE); KETONE, URINE AUTO NEGATIVE (NEGATIVE); LEUKOCYTE ESTERASE, URINE AUTO NEGATIVE (NEGATIVE); NITRITE, URINE AUTO NEGATIVE (NEGATIVE); PROTEIN, URINE AUTO NEGATIVE (NEGATIVE); RBC, URINE AUTO 3 /HPF (0-3); SPECIFIC GRAVITY URINE AUTO 1.011 (1.002-1.035); SQUAMOUS EPITHELIAL CELL UR AU 0 /HPF (0-6); UROBILINOGEN, URINE AUTO 0.2 mg/dL (0.0-2.0); WBC, URINE AUTO 1 /HPF (0-3)
[2018-04-29] MEDS: carBAMazepine 200 MG TAB PO (11:45)
[2018-04-29] MEDS: VALSARTAN 80 MG TAB (DIOVAN) PO (11:45)
[2018-04-29] MEDS: amLODIPine 10 MG TAB PO (11:46)
[2018-04-29] MEDS: FLUoxetine 20 MG CAP PO (11:46)
[2018-04-29] MEDS: FOLIC ACID 1 MG TAB PO (11:46)
[2018-04-29] MEDS: FERROUS SULFATE 325MG TAB PO (11:46)
[2018-04-29] MEDS: PANTOPRAZOLE 40MG TAB (PROTONIX) PO (11:46)
[2018-04-29] MEDS: VITAMIN D 1,000 INTERNATIONAL UNITS TABLET PO (11:47)
[2018-04-29] MEDS: HEPARIN SOD (PORCINE) 5000 UNITS/ML VIAL SC ×2 (13:40→20:52)
[2018-04-29 14:36] LABS: TROPONIN I 0.02 NG/ML (< 0.10)
[2018-04-29] MEDS ORDERED: ATORVASTATIN 20 MG TAB PO (21:00)
[2018-04-29 22:21] LABS: TROPONIN I < 0.02 NG/ML (< 0.10)
[2018-04-30] MEDS: carBAMazepine 200 MG TAB PO (00:23)
[2018-04-30] MEDS: HEPARIN SOD (PORCINE) 5000 UNITS/ML VIAL SC (05:14)
[2018-04-30 06:49] LABS: BASO % 0.9 % (0.0-1.0); EOS # 0.1 10^3/uL (0.0-0.50); EOS % 2.3 % (0.0-3.0); HEMATOCRIT 28.5 % (42.0-52.0); HEMOGLOBIN 9.3 g/dl (13.5-17.5); IMMATURE GRANULOCYTE % 0.2 % (0-3.0); LYMPH % 20.7 % (24.0-44.0); MEAN CORPUSCULAR HEMOGLOBIN 30.5 pg (27.0-33.0); MEAN CORPUSCULAR HGB CONC 32.6 g/dl (32.0-36.5); MEAN CORPUSCULAR VOLUME 93.4 fl (80.0-96.0); MONO # 0.4 10^3/uL (0.0-0.8); NEUTROPHILS # 3.1 10^3/uL (1.8-7.7); NEUTROPHILS % 66.9 % (36.0-66.0); PLATELET COUNT, AUTOMATED 145 10^3/uL (150-450); RED BLOOD COUNT 3.05 10^6/uL (4.30-6.10); RED CELL DISTRIBUTION WIDTH 13.4 % (11.5-14.5); WHITE BLOOD COUNT 4.7 10^3/uL (4.0-10.0)
[2018-04-30 07:21] LABS: ANION GAP 7 MEQ/L (8-16); BLOOD UREA NITROGEN 34 MG/DL (7-18); CARBON DIOXIDE LEVEL 24 MEQ/L (21-32); CHLORIDE LEVEL 113 MEQ/L (98-107); CREATININE FOR GFR 2.64 MG/DL (0.70-1.30); GLOMERULAR FILTRATION RATE 25.5 (>42); GLUCOSE, FASTING 85 MG/DL (70-100); MAGNESIUM LEVEL 2.4 MG/DL (1.8-2.4); POTASSIUM SERUM 4.8 MEQ/L (3.5-5.1); SODIUM LEVEL 144 MEQ/L (136-145)
[2018-04-30] MEDS: SENOKOT S TAB PO (08:13)
[2018-04-30] MEDS ORDERED: ASPIRIN 81 MG ENTERIC TAB PO (12:00)
== END 2018-04-30 08:50 | disposition home or self-care (01) | DRG 69 ==
LOC: M ED 00:27 → M ED INP 06:11
DX: G45.9 Transient cerebral ischemic attack, unspecified (principal); Q61.3 Polycystic kidney, unspecified; N17.9 Acute kidney failure, unspecified; N18.4 Chronic kidney disease, stage 4 (severe); I16.0 Hypertensive urgency; D63.1 Anemia in chronic kidney disease; Z79.899 Other long term (current) drug therapy; Z79.82 Long term (current) use of aspirin; Z88.8 Allergy status to other drugs, medicaments and biological substances; R56.9 Unspecified convulsions; Z86.73 Personal history of transient ischemic attack (TIA), and cerebral infarction without residual deficits

== ENCOUNTER → 2018-05-20 | Outpatient (REF) | payer OTHER, SELFPAY ==
[2018-05-27 00:07] LABS: ALDOS/RENIN RATIO 0.4 (0.0-30.0); ALDOSTERONE 4.2 ng/dL (0.0-30.0); RENIN ACTIVITY 9.567 ng/mL/hr (0.167-5.380)
== END ==
LOC: M LAB REF 17:10
DX: I15.0 Renovascular hypertension (principal)
CPT/HCPCS: 84244

== ENCOUNTER → 2018-05-22 | Outpatient (REF) | payer OTHER, SELFPAY ==
[2018-06-01 00:10] LABS: DOPAMINE 99 ug/24 hr (0-510); DOPAMINE TOTAL URINE 68 ug/L (Undefined); EPINEPHRINE < 1 ug/24 hr (0-20); EPINEPHRINE TOTAL URINE <1 ug/L (Undefined); NOREPINEPHRINE 13 ug/24 hr (0-135); NOREPINEPHRINE TOTAL URINE 9 ug/L (Undefined)
== END ==
LOC: M LAB REF 17:14
DX: I15.0 Renovascular hypertension (principal)
CPT/HCPCS: 82384

== ENCOUNTER 2018-07-22 03:11 | Emergency (ER) | payer OTHER ==
[2018-07-22] MEDS: cloNIDine 0.2 MG TAB PO (03:45)
[2018-07-22] MEDS: diphenhydrAMINE INJ 50MG/ML VIAL (J1200) IV (04:45)
[2018-07-22] MEDS: HALOPERIDOL 5 MG/ML VIAL (J1630) IV (04:45)
== END 2018-07-22 05:47 | disposition home or self-care (01) ==
LOC: M ED 03:11
DX: I10 Essential (primary) hypertension (principal); R11.0 Nausea; E78.5 Hyperlipidemia, unspecified; G40.909 Epilepsy, unspecified, not intractable, without status epilepticus; K21.9 Gastro-esophageal reflux disease without esophagitis; Q61.3 Polycystic kidney, unspecified; D50.9 Iron deficiency anemia, unspecified; Z86.73 Personal history of transient ischemic attack (TIA), and cerebral infarction without residual deficits; Z88.8 Allergy status to other drugs, medicaments and biological substances; Z79.899 Other long term (current) drug therapy; Z79.82 Long term (current) use of aspirin
CPT/HCPCS: J1200

== ENCOUNTER 2018-07-22 15:58 | Emergency (ER) | payer OTHER ==
[2018-07-22] MEDS: ONDANSETRON 4MG/2ML VIAL (J2405) IV ×3 (17:13)
[2018-07-22] MEDS: NS 500 ML IV ×3 (17:13)
[2018-07-22 17:28] LABS: BASO % 0.4 % (0.0-1.0); EOS % 0.1 % (0.0-3.0); HEMATOCRIT 30.2 % (42.0-52.0); HEMOGLOBIN 9.6 g/dl (13.5-17.5); IMMATURE GRANULOCYTE % 0.5 % (0-3.0); LYMPH # 0.7 10^3/uL (1.5-4.5); LYMPH % 8.2 % (24.0-44.0); MEAN CORPUSCULAR HGB CONC 31.8 g/dl (32.0-36.5); MEAN CORPUSCULAR VOLUME 94.4 fl (80.0-96.0); MONO # 0.5 10^3/uL (0.0-0.8); MONO % 5.5 % (0.0-5.0); NEUTROPHILS # 6.9 10^3/uL (1.8-7.7); NEUTROPHILS % 85.3 % (36.0-66.0); PLATELET COUNT, AUTOMATED 160 10^3/uL (150-450); RED CELL DISTRIBUTION WIDTH 14.1 % (11.5-14.5); WHITE BLOOD COUNT 8.1 10^3/uL (4.0-10.0)
[2018-07-22] MEDS: ACETAMINOPHEN 325 MG TAB PO ×3 (17:36)
[2018-07-22] MEDS: GASTROGRAFIN SOLUTION 30ML PO ×6 (17:36→18:02)
[2018-07-22 17:53] LABS: LACTIC ACID SEPSIS PROTOCOL 0.9 MMOL/L (0.4-2.0)
[2018-07-22 17:53] LABS: ALBUMIN 3.7 GM/DL (3.2-5.2); ALBUMIN/GLOBULIN RATIO 1.19 (1.00-1.93); ALKALINE PHOSPHATASE 126 U/L (45-117); ALT/SGPT 20 U/L (12-78); ANION GAP 8 MEQ/L (8-16); AST/SGOT 12 U/L (7-37); BILIRUBIN,TOTAL 0.3 MG/DL (0.2-1.0); BLOOD UREA NITROGEN 34 MG/DL (7-18); CALCIUM LEVEL 8.2 MG/DL (8.8-10.2); CARBON DIOXIDE LEVEL 23 MEQ/L (21-32); CHLORIDE LEVEL 111 MEQ/L (98-107); CREATININE FOR GFR 2.88 MG/DL (0.70-1.30); GLUCOSE, FASTING 105 MG/DL (70-100); POTASSIUM SERUM 4.3 MEQ/L (3.5-5.1); SODIUM LEVEL 142 MEQ/L (136-145); TOTAL PROTEIN 6.8 GM/DL (6.4-8.2)
[2018-07-22 17:55] LABS: KETONE, URINE AUTO RFX NEGATIVE (NEGATIVE); LEUKOCYTE ESTERASE UR AUTO RFX NEGATIVE (NEGATIVE); NITRITE, URINE AUTO RFX NEGATIVE (NEGATIVE); RBC, URINE AUTO RFX 6 /HPF (0-3); SPECIFIC GRAVITY UR AUTO RFX 1.011 (1.002-1.035); SQUAM EPITHELIAL CELL UR AURFX 0 /HPF (0-6); WBC, URINE AUTO RFX 1 /HPF (0-3)
== END 2018-07-22 20:43 | disposition home or self-care (01) ==
LOC: M ED 15:58
DX: R51 Headache (principal); R11.2 Nausea with vomiting, unspecified; R50.9 Fever, unspecified; I10 Essential (primary) hypertension; E78.00 Pure hypercholesterolemia, unspecified; G40.909 Epilepsy, unspecified, not intractable, without status epilepticus; K21.9 Gastro-esophageal reflux disease without esophagitis; Q61.3 Polycystic kidney, unspecified; D64.9 Anemia, unspecified; F43.10 Post-traumatic stress disorder, unspecified; M81.0 Age-related osteoporosis without current pathological fracture; H54.3 Unqualified visual loss, both eyes; N25.81 Secondary hyperparathyroidism of renal origin; K44.9 Diaphragmatic hernia without obstruction or gangrene; Z86.73 Personal history of transient ischemic attack (TIA), and cerebral infarction without residual deficits; Z88.8 Allergy status to other drugs, medicaments and biological substances; Z79.899 Other long term (current) drug therapy; Z79.82 Long term (current) use of aspirin
CPT/HCPCS: Q9963

== ENCOUNTER → 2018-08-14 | Outpatient (REF) | payer OTHER | LOC: M LAB REF 18:12 | DX: D51.0 Vitamin B12 deficiency anemia due to intrinsic factor deficiency (principal) | CPT/HCPCS: 82607 ==

== ENCOUNTER 2018-11-15 22:42 | Inpatient (IN) | payer OTHER ==
[2018-11-15] MEDS ORDERED: LORazepam 2 MG/ML VIAL (J2060) As Ordered (23:06)
[2018-11-15] MEDS: ONDANSETRON 4MG/2ML VIAL (J2405) IV (23:15)
[2018-11-15] MEDS: LORazepam 2 MG/ML VIAL (J2060) IV (23:26)
[2018-11-15 23:27] LABS: BASO % 0.5 % (0.0-1.0); EOS % 0.1 % (0.0-3.0); HEMOGLOBIN 9.2 g/dl (13.5-17.5); IMMATURE GRANULOCYTE % 0.5 % (0-3.0); LYMPH # 0.5 10^3/uL (1.5-4.5); LYMPH % 5.7 % (24.0-44.0); MEAN CORPUSCULAR HEMOGLOBIN 30.2 pg (27.0-33.0); MEAN CORPUSCULAR HGB CONC 32.9 g/dl (32.0-36.5); MEAN CORPUSCULAR VOLUME 91.8 fl (80.0-96.0); MONO # 0.4 10^3/uL (0.0-0.8); MONO % 4.3 % (0.0-5.0); NEUTROPHILS # 7.2 10^3/uL (1.8-7.7); NEUTROPHILS % 88.9 % (36.0-66.0); PLATELET COUNT, AUTOMATED 183 10^3/uL (150-450); RED BLOOD COUNT 3.05 10^6/uL (4.30-6.10); RED CELL DISTRIBUTION WIDTH 13.7 % (11.5-14.5); WHITE BLOOD COUNT 8.1 10^3/uL (4.0-10.0)
[2018-11-15] MEDS: NS 1,000 ML IV (23:27)
[2018-11-15 23:50] LABS: ALBUMIN 3.6 GM/DL (3.2-5.2); ALBUMIN/GLOBULIN RATIO 1.24 (1.00-1.93); ALKALINE PHOSPHATASE 137 U/L (45-117); ALT/SGPT 21 U/L (12-78); AMYLASE 82 U/L (25-115); ANION GAP 13 MEQ/L (8-16); AST/SGOT 20 U/L (7-37); BILIRUBIN,DIRECT < 0.1 MG/DL (0.0-0.2); BILIRUBIN,TOTAL 0.3 MG/DL (0.2-1.0); BLOOD UREA NITROGEN 42 MG/DL (7-18); CALCIUM LEVEL 7.8 MG/DL (8.8-10.2); CARBAMAZEPINE (TEGRETOL) LEVEL 11.7 UG/ML (4.0-10.0); CARBON DIOXIDE LEVEL 18 MEQ/L (21-32); CHLORIDE LEVEL 111 MEQ/L (98-107); CPK CREATINE PHOSPHOKINASE 96 U/L (39-308); CREATININE FOR GFR 3.48 MG/DL (0.70-1.30); GLOMERULAR FILTRATION RATE 18.5 (>42); GLUCOSE, FASTING 124 MG/DL (70-100); LIPASE 216 U/L (73-393); MB/CK RELATIVE INDEX 1.15 (< OR =4); POTASSIUM SERUM 4.7 MEQ/L (3.5-5.1); SODIUM LEVEL 142 MEQ/L (136-145); TOTAL PROTEIN 6.5 GM/DL (6.4-8.2); TROPONIN I < 0.02 NG/ML (< 0.10)
[2018-11-16] MEDS: TAMSULOSIN 0.4 MG CAP PO ×2 (02:19→09:25)
[2018-11-16] MEDS: MORPHINE 2 MG/ML 1ML SYRINGE (J2270) IV (02:21)
[2018-11-16] MEDS ORDERED: LORazepam 2 MG/ML VIAL (J2060) IV (02:45)
[2018-11-16] MEDS: NS 1,000 ML IV ×2 (03:40→14:00)
[2018-11-16] MEDS: PIPERACILLIN/TAZOBACTAM SOD 2.25 GM in D5W MINI-BAG PLUS 50 ML IV ×3 (03:41→17:55)
[2018-11-16] MEDS: HEPARIN SOD (PORCINE) 5000 UNITS/ML VIAL SC ×3 (05:23→21:00)
[2018-11-16 05:54] LABS: BASO % 0.1 % (0.0-1.0); HEMATOCRIT 25.5 % (42.0-52.0); IMMATURE GRANULOCYTE % 0.6 % (0-3.0); LYMPH # 0.4 10^3/uL (1.5-4.5); LYMPH % 5.5 % (24.0-44.0); MEAN CORPUSCULAR HEMOGLOBIN 29.4 pg (27.0-33.0); MEAN CORPUSCULAR HGB CONC 31.4 g/dl (32.0-36.5); MEAN CORPUSCULAR VOLUME 93.8 fl (80.0-96.0); MONO # 0.4 10^3/uL (0.0-0.8); MONO % 6.1 % (0.0-5.0); NEUTROPHILS # 5.9 10^3/uL (1.8-7.7); NEUTROPHILS % 87.7 % (36.0-66.0); PLATELET COUNT, AUTOMATED 138 10^3/uL (150-450); RED BLOOD COUNT 2.72 10^6/uL (4.30-6.10); RED CELL DISTRIBUTION WIDTH 14.1 % (11.5-14.5); WHITE BLOOD COUNT 6.8 10^3/uL (4.0-10.0)
[2018-11-16 06:18] LABS: ANION GAP 10 MEQ/L (8-16); BLOOD UREA NITROGEN 43 MG/DL (7-18); CALCIUM LEVEL 7.3 MG/DL (8.8-10.2); CARBON DIOXIDE LEVEL 19 MEQ/L (21-32); CHLORIDE LEVEL 114 MEQ/L (98-107); CREATININE FOR GFR 3.89 MG/DL (0.70-1.30); GLOMERULAR FILTRATION RATE 16.3 (>42); GLUCOSE, FASTING 115 MG/DL (70-100); POTASSIUM SERUM 4.7 MEQ/L (3.5-5.1); SODIUM LEVEL 143 MEQ/L (136-145)
[2018-11-16] MEDS: carBAMazepine 200 MG TAB PO ×2 (09:25→20:56)
[2018-11-16] MEDS: ATORVASTATIN 20 MG TAB PO (09:25)
[2018-11-16] MEDS: PANTOPRAZOLE 40MG TAB (PROTONIX) PO (09:25)
[2018-11-16] MEDS: FOLIC ACID 1 MG TAB PO (09:25)
[2018-11-16] MEDS: amLODIPine 10 MG TAB PO (09:25)
[2018-11-16] MEDS: FERROUS SULFATE 325MG TAB PO (09:25)
[2018-11-16] MEDS: FLUoxetine 20 MG CAP PO (09:25)
[2018-11-16] MEDS: **hydrALAZINE** 50 MG TAB PO ×2 (09:26→20:58)
[2018-11-16] MEDS: THIAMINE HCL 200 MG/2 ML VIAL (J3411) IV (09:26)
[2018-11-16] MEDS: PERCOCET 5MG/325MG TAB PO ×2 (13:00→20:59)
[2018-11-16] MEDS: ONDANSETRON 4MG/2ML VIAL (J2405) IV (17:45)
[2018-11-16] MEDS: MORPHINE 4 MG/ML 1ML VIAL/SYRINGE (J2270) IV ×2 (18:36→23:21)
[2018-11-16] MEDS ORDERED: PROMETHAZINE INJ 25 MG/ML VIAL (J2550) IV (22:15)
[2018-11-16] MEDS: PROMETHAZINE INJ 25 MG/ML VIAL (J2550) IV (22:47)
[2018-11-17] MEDS: NS 1,000 ML IV ×3 (02:18→17:58)
[2018-11-17] MEDS: PIPERACILLIN/TAZOBACTAM SOD 2.25 GM in D5W MINI-BAG PLUS 50 ML IV ×3 (02:19→17:28)
[2018-11-17] MEDS: HYDROMORPHONE HCL 0.5 MG/ 0.5 ML SYRINGE (J1170 PER 1) IV (03:11)
[2018-11-17] MEDS: HEPARIN SOD (PORCINE) 5000 UNITS/ML VIAL SC ×3 (05:18→20:59)
[2018-11-17 05:45] LABS: BASO % 0.3 % (0.0-1.0); HEMATOCRIT 23.1 % (42.0-52.0); HEMOGLOBIN 7.5 g/dl (13.5-17.5); IMMATURE GRANULOCYTE % 0.4 % (0-3.0); LYMPH # 0.4 10^3/uL (1.5-4.5); LYMPH % 5.6 % (24.0-44.0); MEAN CORPUSCULAR HGB CONC 32.5 g/dl (32.0-36.5); MEAN CORPUSCULAR VOLUME 92.4 fl (80.0-96.0); MONO # 0.5 10^3/uL (0.0-0.8); MONO % 7.4 % (0.0-5.0); NEUTROPHILS # 5.9 10^3/uL (1.8-7.7); NEUTROPHILS % 86.3 % (36.0-66.0); PLATELET COUNT, AUTOMATED 119 10^3/uL (150-450); WHITE BLOOD COUNT 6.8 10^3/uL (4.0-10.0)
[2018-11-17 06:04] LABS: ANION GAP 11 MEQ/L (8-16); BLOOD UREA NITROGEN 46 MG/DL (7-18); CALCIUM LEVEL 7.2 MG/DL (8.8-10.2); CARBON DIOXIDE LEVEL 17 MEQ/L (21-32); CHLORIDE LEVEL 117 MEQ/L (98-107); CREATININE FOR GFR 4.36 MG/DL (0.70-1.30); GLOMERULAR FILTRATION RATE 14.3 (>42); GLUCOSE, FASTING 104 MG/DL (70-100); POTASSIUM SERUM 4.5 MEQ/L (3.5-5.1); SODIUM LEVEL 145 MEQ/L (136-145)
[2018-11-17] MEDS: THIAMINE HCL 200 MG/2 ML VIAL (J3411) IV ×2 (09:00→09:17)
[2018-11-17] MEDS: FERROUS SULFATE 325MG TAB PO (09:16)
[2018-11-17] MEDS: **hydrALAZINE** 50 MG TAB PO ×2 (09:16→20:55)
[2018-11-17] MEDS: carBAMazepine 200 MG TAB PO ×2 (09:16→20:53)
[2018-11-17] MEDS: ATORVASTATIN 20 MG TAB PO (09:16)
[2018-11-17] MEDS: FLUoxetine 20 MG CAP PO (09:17)
[2018-11-17] MEDS: FOLIC ACID 1 MG TAB PO (09:17)
[2018-11-17] MEDS: amLODIPine 10 MG TAB PO (09:17)
[2018-11-17] MEDS: TAMSULOSIN 0.4 MG CAP PO (09:17)
[2018-11-17 14:21] LABS: IMMEDIATE SPIN CROSSMATCH 1 2
[2018-11-17 18:07] LABS: HEMOGLOBIN 9.1 g/dl (13.5-17.5)
[2018-11-18 00:49] LABS: HEMATOCRIT 31.2 % (42.0-52.0)
[2018-11-18] MEDS: PIPERACILLIN/TAZOBACTAM SOD 2.25 GM in D5W MINI-BAG PLUS 50 ML IV ×3 (02:06→18:00)
[2018-11-18] MEDS: NS 1,000 ML IV ×2 (02:06→12:46)
[2018-11-18] MEDS: HEPARIN SOD (PORCINE) 5000 UNITS/ML VIAL SC ×3 (05:01→21:32)
[2018-11-18 06:50] LABS: BASO % 0.4 % (0.0-1.0); EOS % 0.9 % (0.0-3.0); HEMATOCRIT 26.9 % (42.0-52.0); HEMOGLOBIN 8.6 g/dl (13.5-17.5); IMMATURE GRANULOCYTE % 0.2 % (0-3.0); LYMPH # 0.6 10^3/uL (1.5-4.5); LYMPH % 12.6 % (24.0-44.0); MEAN CORPUSCULAR HEMOGLOBIN 29.1 pg (27.0-33.0); MEAN CORPUSCULAR VOLUME 90.9 fl (80.0-96.0); MONO # 0.4 10^3/uL (0.0-0.8); MONO % 9.8 % (0.0-5.0); NEUTROPHILS # 3.4 10^3/uL (1.8-7.7); NEUTROPHILS % 76.1 % (36.0-66.0); PLATELET COUNT, AUTOMATED 111 10^3/uL (150-450); RED BLOOD COUNT 2.96 10^6/uL (4.30-6.10); RED CELL DISTRIBUTION WIDTH 14.7 % (11.5-14.5); WHITE BLOOD COUNT 4.5 10^3/uL (4.0-10.0)
[2018-11-18 07:11] LABS: ANION GAP 10 MEQ/L (8-16); BLOOD UREA NITROGEN 39 MG/DL (7-18); CALCIUM LEVEL 7.2 MG/DL (8.8-10.2); CARBON DIOXIDE LEVEL 18 MEQ/L (21-32); CHLORIDE LEVEL 118 MEQ/L (98-107); CREATININE FOR GFR 3.74 MG/DL (0.70-1.30); GLUCOSE, FASTING 90 MG/DL (70-100); POTASSIUM SERUM 4.2 MEQ/L (3.5-5.1); SODIUM LEVEL 146 MEQ/L (136-145)
[2018-11-18] MEDS: FERROUS SULFATE 325MG TAB PO (08:39)
[2018-11-18] MEDS: PANTOPRAZOLE 40MG TAB (PROTONIX) PO (08:39)
[2018-11-18] MEDS: ATORVASTATIN 20 MG TAB PO (08:39)
[2018-11-18] MEDS: carBAMazepine 200 MG TAB PO ×2 (08:39→20:04)
[2018-11-18] MEDS: FOLIC ACID 1 MG TAB PO (08:39)
[2018-11-18] MEDS: TAMSULOSIN 0.4 MG CAP PO (08:39)
[2018-11-18] MEDS: FLUoxetine 20 MG CAP PO (08:40)
[2018-11-18] MEDS: **hydrALAZINE** 50 MG TAB PO ×3 (08:40→21:00)
[2018-11-18] MEDS: THIAMINE HCL 200 MG/2 ML VIAL (J3411) IV (08:40)
[2018-11-18] MEDS: amLODIPine 10 MG TAB PO (08:40)
[2018-11-18 20:17] LABS: HEMATOCRIT 30.7 % (42.0-52.0); HEMOGLOBIN 9.8 g/dl (13.5-17.5)
[2018-11-19] MEDS: PIPERACILLIN/TAZOBACTAM SOD 2.25 GM in D5W MINI-BAG PLUS 50 ML IV ×2 (01:20→09:51)
[2018-11-19] MEDS: NS 1,000 ML IV (01:20)
[2018-11-19] MEDS: HEPARIN SOD (PORCINE) 5000 UNITS/ML VIAL SC ×3 (05:12→22:00)
[2018-11-19 06:35] LABS: BASO % 0.7 % (0.0-1.0); EOS # 0.1 10^3/uL (0.0-0.50); EOS % 1.3 % (0.0-3.0); HEMATOCRIT 29.7 % (42.0-52.0); HEMOGLOBIN 9.4 g/dl (13.5-17.5); IMMATURE GRANULOCYTE % 0.5 % (0-3.0); LYMPH # 0.7 10^3/uL (1.5-4.5); MEAN CORPUSCULAR HEMOGLOBIN 28.9 pg (27.0-33.0); MEAN CORPUSCULAR HGB CONC 31.6 g/dl (32.0-36.5); MEAN CORPUSCULAR VOLUME 91.4 fl (80.0-96.0); MONO # 0.5 10^3/uL (0.0-0.8); NEUTROPHILS # 4.8 10^3/uL (1.8-7.7); NEUTROPHILS % 78.5 % (36.0-66.0); PLATELET COUNT, AUTOMATED 139 10^3/uL (150-450); RED BLOOD COUNT 3.25 10^6/uL (4.30-6.10); RED CELL DISTRIBUTION WIDTH 14.6 % (11.5-14.5); WHITE BLOOD COUNT 6.1 10^3/uL (4.0-10.0)
[2018-11-19 06:59] LABS: ANION GAP 11 MEQ/L (8-16); BLOOD UREA NITROGEN 34 MG/DL (7-18); CALCIUM LEVEL 7.3 MG/DL (8.8-10.2); CARBON DIOXIDE LEVEL 17 MEQ/L (21-32); CHLORIDE LEVEL 117 MEQ/L (98-107); CREATININE FOR GFR 3.22 MG/DL (0.70-1.30); GLOMERULAR FILTRATION RATE 20.2 (>42); GLUCOSE, FASTING 99 MG/DL (70-100); POTASSIUM SERUM 3.9 MEQ/L (3.5-5.1); SODIUM LEVEL 145 MEQ/L (136-145)
[2018-11-19] MEDS: FOLIC ACID 1 MG TAB PO (08:41)
[2018-11-19] MEDS: **hydrALAZINE** 50 MG TAB PO ×3 (08:41→21:14)
[2018-11-19] MEDS: ATORVASTATIN 20 MG TAB PO (08:41)
[2018-11-19] MEDS: FERROUS SULFATE 325MG TAB PO (08:41)
[2018-11-19] MEDS: carBAMazepine 200 MG TAB PO ×2 (08:41→21:15)
[2018-11-19] MEDS: FLUoxetine 20 MG CAP PO (08:42)
[2018-11-19] MEDS: TAMSULOSIN 0.4 MG CAP PO (08:42)
[2018-11-19] MEDS: amLODIPine 10 MG TAB PO (08:42)
[2018-11-19] MEDS: THIAMINE HCL 200 MG/2 ML VIAL (J3411) IV (08:42)
[2018-11-19] MEDS: ONDANSETRON 4MG/2ML VIAL (J2405) IV (12:03)
[2018-11-19] MEDS: SODIUM BICARBONATE 325 MG TAB PO ×2 (15:20→21:15)
[2018-11-20] MEDS: HEPARIN SOD (PORCINE) 5000 UNITS/ML VIAL SC ×3 (05:45→20:42)
[2018-11-20 06:08] LABS: BASO % 0.4 % (0.0-1.0); EOS # 0.1 10^3/uL (0.0-0.50); EOS % 1.2 % (0.0-3.0); HEMATOCRIT 27.5 % (42.0-52.0); IMMATURE GRANULOCYTE % 0.4 % (0-3.0); LYMPH # 0.5 10^3/uL (1.5-4.5); LYMPH % 10.5 % (24.0-44.0); MEAN CORPUSCULAR HEMOGLOBIN 30.2 pg (27.0-33.0); MEAN CORPUSCULAR HGB CONC 32.7 g/dl (32.0-36.5); MEAN CORPUSCULAR VOLUME 92.3 fl (80.0-96.0); MONO # 0.5 10^3/uL (0.0-0.8); MONO % 9.9 % (0.0-5.0); NEUTROPHILS # 3.8 10^3/uL (1.8-7.7); NEUTROPHILS % 77.6 % (36.0-66.0); PLATELET COUNT, AUTOMATED 123 10^3/uL (150-450); RED BLOOD COUNT 2.98 10^6/uL (4.30-6.10); RED CELL DISTRIBUTION WIDTH 14.2 % (11.5-14.5); WHITE BLOOD COUNT 4.9 10^3/uL (4.0-10.0)
[2018-11-20 06:32] LABS: ANION GAP 11 MEQ/L (8-16); BLOOD UREA NITROGEN 27 MG/DL (7-18); CALCIUM LEVEL 7.2 MG/DL (8.8-10.2); CARBON DIOXIDE LEVEL 17 MEQ/L (21-32); CHLORIDE LEVEL 116 MEQ/L (98-107); CREATININE FOR GFR 2.88 MG/DL (0.70-1.30); GLUCOSE, FASTING 98 MG/DL (70-100); POTASSIUM SERUM 3.6 MEQ/L (3.5-5.1); SODIUM LEVEL 144 MEQ/L (136-145)
[2018-11-20] MEDS: ACETAMINOPHEN TAB 650MG DOSE (2X325MG) PO (06:55)
[2018-11-20] MEDS: **hydrALAZINE** 50 MG TAB PO ×3 (09:54→20:41)
[2018-11-20] MEDS: SODIUM BICARBONATE 325 MG TAB PO ×2 (09:55→20:41)
[2018-11-20] MEDS: THIAMINE 100 MG TAB PO (09:55)
[2018-11-20] MEDS: amLODIPine 10 MG TAB PO (09:55)
[2018-11-20] MEDS: PANTOPRAZOLE 40MG TAB (PROTONIX) PO (09:55)
[2018-11-20] MEDS: carBAMazepine 200 MG TAB PO ×2 (09:56→20:41)
[2018-11-20] MEDS: FOLIC ACID 1 MG TAB PO (09:56)
[2018-11-20] MEDS: TAMSULOSIN 0.4 MG CAP PO (09:56)
[2018-11-20] MEDS: ATORVASTATIN 20 MG TAB PO (09:56)
[2018-11-20] MEDS: FERROUS SULFATE 325MG TAB PO (09:56)
[2018-11-21 05:59] LABS: BASO % 0.6 % (0.0-1.0); EOS # 0.1 10^3/uL (0.0-0.50); EOS % 1.8 % (0.0-3.0); HEMATOCRIT 27.1 % (42.0-52.0); HEMOGLOBIN 8.9 g/dl (13.5-17.5); IMMATURE GRANULOCYTE % 0.4 % (0-3.0); LYMPH # 0.5 10^3/uL (1.5-4.5); LYMPH % 9.6 % (24.0-44.0); MEAN CORPUSCULAR HEMOGLOBIN 29.6 pg (27.0-33.0); MEAN CORPUSCULAR HGB CONC 32.8 g/dl (32.0-36.5); MONO # 0.4 10^3/uL (0.0-0.8); MONO % 8.7 % (0.0-5.0); NEUTROPHILS % 78.9 % (36.0-66.0); PLATELET COUNT, AUTOMATED 119 10^3/uL (150-450); RED BLOOD COUNT 3.01 10^6/uL (4.30-6.10); RED CELL DISTRIBUTION WIDTH 13.9 % (11.5-14.5); WHITE BLOOD COUNT 5.1 10^3/uL (4.0-10.0)
[2018-11-21] MEDS: HEPARIN SOD (PORCINE) 5000 UNITS/ML VIAL SC (06:12)
[2018-11-21 06:20] LABS: ANION GAP 10 MEQ/L (8-16); BLOOD UREA NITROGEN 27 MG/DL (7-18); CALCIUM LEVEL 7.7 MG/DL (8.8-10.2); CARBON DIOXIDE LEVEL 18 MEQ/L (21-32); CHLORIDE LEVEL 115 MEQ/L (98-107); CREATININE FOR GFR 2.74 MG/DL (0.70-1.30); GLOMERULAR FILTRATION RATE 24.4 (>42); GLUCOSE, FASTING 106 MG/DL (70-100); POTASSIUM SERUM 3.5 MEQ/L (3.5-5.1); SODIUM LEVEL 143 MEQ/L (136-145)
[2018-11-21] MEDS: SODIUM BICARBONATE 325 MG TAB PO (10:22)
[2018-11-21] MEDS: **hydrALAZINE** 50 MG TAB PO (10:22)
[2018-11-21] MEDS: FOLIC ACID 1 MG TAB PO (10:23)
[2018-11-21] MEDS: amLODIPine 10 MG TAB PO (10:23)
[2018-11-21] MEDS: THIAMINE 100 MG TAB PO (10:23)
[2018-11-21] MEDS: ATORVASTATIN 20 MG TAB PO (10:23)
[2018-11-21] MEDS: carBAMazepine 200 MG TAB PO (10:23)
[2018-11-21] MEDS: TAMSULOSIN 0.4 MG CAP PO (10:23)
[2018-11-21] MEDS: FERROUS SULFATE 325MG TAB PO (10:23)
== END 2018-11-21 11:15 | disposition home or self-care (01) | DRG 694 ==
LOC: M ED INP 11-16 01:58 → M ED 22:42 → M MSPAV 11-16 03:16
PROC: 30233N1 Transfusion of Nonautologous Red Blood Cells into Peripheral Vein, Percutaneous Approach (ICD-10-PCS; principal; 2018-11-17)
DX: N20.1 Calculus of ureter (principal); N17.9 Acute kidney failure, unspecified; N18.4 Chronic kidney disease, stage 4 (severe); E87.2 Acidosis; Q61.3 Polycystic kidney, unspecified; N39.0 Urinary tract infection, site not specified; D62 Acute posthemorrhagic anemia; F31.9 Bipolar disorder, unspecified; E78.5 Hyperlipidemia, unspecified; D50.9 Iron deficiency anemia, unspecified; G40.909 Epilepsy, unspecified, not intractable, without status epilepticus; I12.9 Hypertensive chronic kidney disease with stage 1 through stage 4 chronic kidney disease, or unspecified chronic kidney disease; Z86.73 Personal history of transient ischemic attack (TIA), and cerebral infarction without residual deficits; D63.1 Anemia in chronic kidney disease; Z79.899 Other long term (current) drug therapy; Z79.82 Long term (current) use of aspirin; Z88.8 Allergy status to other drugs, medicaments and biological substances; K21.9 Gastro-esophageal reflux disease without esophagitis; R31.9 Hematuria, unspecified

== ENCOUNTER → 2019-04-23 | Outpatient (REF) | payer OTHER ==
[~2019-04-23] MED LIST changes: -/ATOR40TA PO; -/CARB4TA PO; +ALLO100T; +AMLO10TA5 PO; +ASPI-255 PO; -ASPI325T24 PO; +CALC1CAP31 PO; +CLON-412 PO; -ERGO500014 PO; +FERR1TAB8 PO; +FLOM0.4C39 PO; +FLUO20CA19 PO; +FOLI1TAB11 PO; -FOLI1TAB4 PO; +HYDR50TA PO; +LIPI1TAB2 PO; +PANT40TA3 PO; +SODI325T9 PO; +TEGR1TAB2 PO; +THIA100TA PO; -VALS1TAB48 PO; +VALS1TAB68 PO; +VITA500045 PO
[2019-04-23 18:28] LABS: PERCENT SATURATION 20.4 % (19.7-50.0)
== END ==
LOC: M LAB REF 16:55
PROVIDERS: ATTEND Internal Medicine Nephrology
DX: D50.9 Iron deficiency anemia, unspecified (principal)

== ENCOUNTER → 2019-07-23 | Outpatient (REF) | payer OTHER ==
[~2019-07-23] MED LIST changes: +CYAN100049 PO; +FERR324T2 PO; +PROC20004 SC; +TEGR100T3 PO; +TEGR1TAB PO; +VITA-113 SL; -VITA10002 PO
== END ==
LOC: M LAB REF 17:11
PROVIDERS: ATTEND Nurse Practitioner Family
DX: Z79.899 Other long term (current) drug therapy (principal); G40.89 Other seizures

== ENCOUNTER → 2019-10-27 | Outpatient (REF) | payer OTHER ==
[~2019-10-27] MED LIST changes: -FERR324T2 PO; -PROC20004 SC; -TEGR100T3 PO; -TEGR1TAB PO; -VITA-113 SL
== END ==
LOC: M LAB REF 17:26
PROVIDERS: ATTEND Nurse Practitioner Family
DX: Z51.81 Encounter for therapeutic drug level monitoring (principal); Z79.899 Other long term (current) drug therapy

== ENCOUNTER 2019-11-27 18:43 | Inpatient (IN) | payer OTHER ==
[~2019-11-27] VITALS: Ht 185.4 cm; Wt 80.0 kg
[2019-11-27] MEDS ORDERED: ACETAMINOPHEN 325 MG TAB As Ordered ONE (19:47)
[2019-11-27 19:49] LABS: BASO # 0.1 10^3/uL (0.0-0.2); BASO % 0.5 % (0.0-1.0); EOS % 0.2 % (0.0-3.0); HEMATOCRIT 31.8 % (42.0-52.0); HEMOGLOBIN 10.1 g/dl (13.5-17.5); LYMPH # 0.7 10^3/uL (1.5-5.0); LYMPH % 6.1 % (24.0-44.0); MEAN CORPUSCULAR HEMOGLOBIN 29.9 pg (27.0-33.0); MEAN CORPUSCULAR HGB CONC 31.8 g/dl (32.0-36.5); MEAN CORPUSCULAR VOLUME 94.1 fl (80.0-96.0); MONO # 0.7 10^3/uL (0.0-0.8); MONO % 5.5 % (0.0-5.0); NEUTROPHILS # 10.6 10^3/uL (1.5-8.5); PLATELET COUNT, AUTOMATED 216 10^3/uL (150-450); RED BLOOD COUNT 3.38 10^6/uL (4.30-6.10); WHITE BLOOD COUNT 12.1 10^3/uL (4.0-10.0)
[2019-11-27] MEDS ORDERED: ACETAMINOPHEN TAB 650MG DOSE (2X325MG) PO ONE (20:00)
[2019-11-27 20:23] LABS: ALBUMIN 3.6 GM/DL (3.2-5.2); ALT/SGPT 17 U/L (12-78); BILIRUBIN,DIRECT 0.1 MG/DL (0.0-0.2); BILIRUBIN,TOTAL 0.4 MG/DL (0.2-1.0); BLOOD UREA NITROGEN 36 MG/DL (7-18); CARBON DIOXIDE LEVEL 17 MEQ/L (21-32); CHLORIDE LEVEL 115 MEQ/L (98-107); CK-MB VALUE MASS < 1.0 NG/ML (<3.6); CPK CREATINE PHOSPHOKINASE 59 U/L (39-308); CREATININE FOR GFR 3.13 MG/DL (0.70-1.30); GLOMERULAR FILTRATION RATE 20.8 (>42); GLUCOSE, FASTING 101 MG/DL (70-100); MB/CK RELATIVE INDEX 1.69 (< OR =4); POTASSIUM SERUM 4.3 MEQ/L (3.5-5.1); SODIUM LEVEL 142 MEQ/L (136-145); TOTAL PROTEIN 6.3 GM/DL (6.4-8.2); TROPONIN I 0.04 NG/ML (< 0.10)
[2019-11-27 20:29] LABS: LIPASE 194 U/L (73-393)
[2019-11-27 22:46] LABS: INFLUENZA A AMPLIFICATION NEGATIVE (NEGATIVE); INFLUENZA B AMPLIFICATION NEGATIVE (NEGATIVE)
[2019-11-27] MEDS ORDERED: VANCOMYCIN ORAL SOL 250MG/5ML ORAL SYRINGE PO ONE (23:45)
[2019-11-27] MEDS ORDERED: metroNIDAZOLE 500 MG in IV 1 EA IV ONE (23:45)
[2019-11-28] MEDS ORDERED: FERR324T2 PO (00:10)
[2019-11-28] MEDS ORDERED: VITA-113 SL (00:13)
[2019-11-28] MEDS ORDERED: PROC20004 SC (00:13)
[2019-11-28] MEDS ORDERED: VALS1TAB68 PO (00:13)
[2019-11-28] MEDS ORDERED: CLON-412 PO (00:13)
[2019-11-28] MEDS ORDERED: TEGR1TAB PO ×2 (00:28)
[2019-11-28] MEDS ORDERED: TEGR100T3 PO (00:28)
[2019-11-28] MEDS ORDERED: cloNIDine 0.1 MG TAB PO PRN (02:45)
--- NOTE | 2019-11-28 02:51 | HPEPDOC ---
[facility] Medical History & Physical Date of Admission Nov 28, 2019 Date of Service: Nov 28, 2019 Attending Physician: DUTCH SALES MD History and Physical CHIEF COMPLAINT: Vomiting HISTORY OF PRESENT ILLNESS: 74-year-old male with past medical history of chronic kidney disease secondary to polycystic kidney disease, hypertension and seizure disorder, presents from home with vomiting and fever for the past couple of days. He has no other associated symptoms, denies any diarrhea, chest pain, shortness of breath, abdominal pain or urinary complaints. In the ED, his stool PCR is positive for C. difficile. Point review of system is negative except for above PAST MEDICAL HISTORY: 1. Polycystic kidney disease. 2. Hypertension. 3. Seizure disorder. 4. Chronic kidney disease PAST SURGICAL HISTORY: 1. None. SOCIAL HISTORY: Never smoker. Denies alcohol use. denies drug use FAMILY HISTORY: No family history of cancer or heart disease ALLERGIES: Please see below. HOME MEDICATIONS: Please see below. PHYSICAL EXAMINATION: VITAL SIGNS: Please see below. GENERAL: No distress HEENT: Normocephalic, atraumatic, dry mucous membranes NECK: Supple CARDIOVASCULAR EXAMINATION: S1, S2, no murmurs RESPIRATORY EXAMINATION: Clear to auscultation, no wheezing ABDOMINAL EXAMINATION: Soft, nontender, nondistended, positive bowel sounds EXTREMITIES: Range of motion intact SKIN: No rash NEUROLOGICAL EXAMINATION: Alert and oriented 3, no focal deficits PSYCHIATRIC EXAMINATION: Calm and cooperative LABORATORY DATA: See below. IMAGING: Chest x-ray without acute pathology MICROBIOLOGY: Please see below. ASSESSMENT: 74-year-old male with past medical history of polycystic kidney disease, hypertension and seizure disorder is being admitted for C. difficile. PLAN: 1. C. difficile. Oral vancomycin 250 mg 6 hours, gentle IV hydration, contact precautions. 2. Chronic kidney disease secondary to polycystic kidney disease. Creatinine close to baseline, on gentle IV hydration, continue home meds. 3. Hypertension. Continue Norvasc 4. Seizure disorder. Continue carbamazepine DVT prophylaxis: Heparin subcutaneous. GI prophylaxis: Home PPI Vital Signs Vital Signs Date Time Temp Pulse Resp B/P (MAP) Pulse Ox O2 Delivery O2 Flow Rate FiO2 11/28/19 01:57 100.4 11/28/19 01:56 63 18 119/58 (78) 94 Room Air Laboratory Data Labs 24H Laboratory Tests 2 11/27/19 19:07: Anion Gap 10, Glomerular Filtration Rate 20.8L, Calcium Level 8.0L, Total Bilirubin 0.4, Direct Bilirubin 0.1, Aspartate Amino Transf (AST/SGOT) 15, Alanine Aminotransferase (ALT/SGPT) 17, Alkaline Phosphatase 140H, Total Creatine Kinase 59, Creatine Kinase MB < 1.0, Creatine Kinase MB Relative Index 1.69, Troponin I 0.04, Total Protein 6.3L, Albumin 3.6, Albumin/Globulin Ratio 1.33, Lipase 194 11/27/19 19:43: Immature Granulocyte % (Auto) 0.7, Neutrophils (%) (Auto) 87.0H, Lymphocytes (%) (Auto) 6.1L, Monocytes (%) (Auto) 5.5H, Eosinophils (%) (Auto) 0.2, Basophils (%) (Auto) 0.5, Neutrophils # (Auto) 10.6H, Lymphocytes # (Auto) 0.7L, Monocytes # (Auto) 0.7, Eosinophils # (Auto) 0.0, Basophils # (Auto) 0.1, Nucleated Red Blood Cells % (auto) 0.0, Lactic Acid Level 1.4 11/27/19 19:55: Bedside Glucose (Misc Panel) 100 11/27/19 22:10: Urine Color YELLOW, Urine Appearance CLEAR, Urine pH 5.0, Urine Specific [place] 1.010, Urine Protein NEGATIVE, Urine Glucose (UA) NEGATIVE, Urine Ketones NEGATIVE, Urine Blood NEGATIVE, Urine Nitrite NEGATIVE, Urine Bilirubin NEGATIVE, Urine Urobilinogen 0.2, Urine Leukocyte Esterase NEGATIVE, Urine WBC (Auto) 1, Urine RBC (Auto) 2, Urine Hyaline Casts (Auto) 0, Urine Bacteria (Au to) 1+H, Urine Squamous Epithelial Cells 0, Urine Sperm (Auto) , Influenza Type A (RT-PCR) NEGATIVE, Influenza Type B (RT-PCR) NEGATIVE CBC/BMP Laboratory Tests 11/27/19 19:07 11/27/19 19:43 Microbiology Microbiology 11/27/19 Gastrointestinal Tract Panel (PCR) - Final, Complete Clostridium Difficile A/B 11/27/19 Blood Culture, Received Pending 11/27/19 Blood Culture, Received Pending Home Medications Scheduled Amlodipine Besylate (Amlodipine Besylate) 10 Mg Tab, 10 MG PO DAILY Atorvastatin Calcium (Atorvastatin Calcium) 80 Mg Tab, 40 MG PO DAILY Calcitriol (Calcitriol) 0.25 Mcg Cap, 0.25 MCG PO DAILY Carbamazepine (Tegretol Xr) 200 Mg Tab.er.12h, 400 MG PO QAM Carbamazepine (Tegretol Xr) 200 Mg Tab.er.12h, 200 MG PO QHS TAKES WITH 100MG TABLET FOR TOTAL OF 300MG Carbamazepine (Tegretol Xr) 100 Mg Tab.er.12h, 100 MG PO QHS TAKES WITH 200MG TABLET FOR TOTAL OF 300MG Cyanocobalamin (Vitamin B-12) (Vitamin B-12) 1,000 Mcg Tab.subl, 1,000 MCG SL DAILY Epoetin Sarbjit (Procrit) 20,000 Unit/1 Ml Vial, 12,000 UNITS SC Q30D Ferrous Sulfate (Ferrous Sulfate) 324 Mg Tablet.dr, 324 MG PO DAILY Folic Acid (Folic Acid) 1 Mg Tab, 1 MG PO DAILY Pantoprazole Sodium (Pantoprazole Sodium) 40 Mg Tab, 40 MG PO Q2D Valsartan (Valsartan) 320 Mg Tablet, 320 MG PO DAILY Scheduled PRN Clonidine HCl (Clonidine HCl) 0.1 Mg Tablet, 0.1 MG PO Q6H PRN for ANXIETY Allergies Coded Allergies: allopurinol (Verified Allergy, Unknown, 11/27/19) clopidogrel (Verified Allergy, Unknown, 11/27/19) sertraline (Verified Allergy, Unknown, 11/27/19) A-FIB/CHADSVASC A-FIB History Current/History of A-Fib/PAF?: No DUTCH SALES MD Nov 28, 2019 02:51
[2019-11-28 03:40] VITALS: BP 137/77
[2019-11-28] MEDS ORDERED: ACETAMINOPHEN TAB 650MG DOSE (2X325MG) PO PRN (03:45)
[2019-11-28] MEDS: NS 1,000 ML IV SCH ×3 (03:50→23:47)
[2019-11-28] MEDS ORDERED: ONDANSETRON 4MG/2ML VIAL (J2405) IV PRN (05:15)
[2019-11-28] MEDS: VANCOMYCIN ORAL SOL 250MG/5ML ORAL SYRINGE PO SCH ×4 (05:46→23:48)
[2019-11-28] MEDS: HEPARIN SOD (PORCINE) 5000 UNITS/ML VIAL SC SCH ×2 (05:47→17:29)
--- NOTE | 2019-11-28 07:33 | REP ---
Clinical: Cough . Comparison: 07/22/2018 . Findings: The mediastinum and cardiac silhouette are stable and within normal limits for portable technique. The lung mauro are clear without acute consolidation, effusion, or pneumothorax. Skeletal structures are intact. Impression: No acute cardiopulmonary process appreciated. Electronically Signed by Rigoberto Olvera MD 11/28/2019 07:25 A
[2019-11-28] MEDS: CALCITRIOL 0.25 MCG CAP (S0169) PO SCH (09:00)
[2019-11-28] MEDS ORDERED: PANTOPRAZOLE 40MG TAB (PROTONIX) PO SCH (09:00)
[2019-11-28] MEDS ORDERED: ATORVASTATIN 20 MG TAB PO SCH ×2 (09:00→21:00)
[2019-11-28] MEDS: amLODIPine 10 MG TAB PO SCH (09:29)
[2019-11-28] MEDS: FOLIC ACID 1 MG TAB PO SCH (09:29)
[2019-11-28] MEDS: VALSARTAN 80 MG TAB (DIOVAN) PO SCH (09:29)
[2019-11-28] MEDS: carBAMazepine XR 200 MG TAB PO SCH (09:29)
[2019-11-28 14:00] VITALS: BP 121/53
--- NOTE | 2019-11-28 14:24 | IPNPDOC ---
Text Note Date of Service The patient was seen on 11/28/19. NOTE Subjective: Patient complains on the mild abdominal pain, he had 2 bowel mov ements overnight. Patient denies fever, chills, nausea, vomiting, dysuria Objective: GENERAL APPEARANCE: Well-nourished, well-developed, not in apparent distress HEENT: Normocephalic, atraumatic. Mucous members moist and pink CARDIOVASCULAR: Regular rate and rhythm. No murmurs, rubs or gallops. Radial pulses are intact. There is no lower extremity edema LUNGS: Clear to auscultation ABDOMEN: Bowel sounds are hypoactive. Abdomen is soft and nontender. MUSCULOSKELETAL: Range of motion is intact in all 4 extremities NEUROLOGICAL: Cranial nerves II-12 are grossly intact. Speech is not dysarthric Assessment and plan Patient 74 years old male with past history of pleurisy kidney diseases, hype rtension, seizure was admitted for treatment of C. difficile colitis C. difficile colitis Continue oral vancomycin IV fluid Chronic kidney diseases Continue to monitor creatinine Continue volume expansion Hypertension Continue Norvasc Seizure disorder Continue carbamazepine VS,Fishbone, I+O VS, Fishbone, I+O Laboratory Tests 11/27/19 19:07 11/27/19 19:43 Vital Signs Date Time Temp Pulse Resp B/P (MAP) Pulse Ox O2 Delivery O2 Flow Rate FiO2 11/28/19 09:29 143/71 11/28/19 09:29 61 11/28/19 03:40 98.6 16 98 Room Air I&O- Last 24 Hours up to 6 AM 11/28/19 06:00 Intake Total 260 ml Balance 260 ml OSKAR FOSS DO Nov 28, 2019 14:24
[2019-11-28] MEDS: FERROUS SULFATE 325MG TAB PO SCH (14:35)
[2019-11-28 14:58] LABS: HEMATOCRIT 26.8 % (42.0-52.0); HEMOGLOBIN 8.6 g/dl (13.5-17.5); MEAN CORPUSCULAR HEMOGLOBIN 29.6 pg (27.0-33.0); MEAN CORPUSCULAR HGB CONC 32.1 g/dl (32.0-36.5); MEAN CORPUSCULAR VOLUME 92.1 fl (80.0-96.0); PLATELET COUNT, AUTOMATED 134 10^3/uL (150-450); RED BLOOD COUNT 2.91 10^6/uL (4.30-6.10); WHITE BLOOD COUNT 5.6 10^3/uL (4.0-10.0)
[2019-11-28 15:24] LABS: CALCIUM LEVEL 7.5 MG/DL (8.8-10.2); CREATININE FOR GFR 3.06 MG/DL (0.70-1.30); GLOMERULAR FILTRATION RATE 21.4 (>42); POTASSIUM SERUM 4.2 MEQ/L (3.5-5.1)
[2019-11-28] MEDS ORDERED: carBAMazepine XR 200 MG TAB PO SCH (21:00)
[2019-11-28] MEDS ORDERED: carBAMazepine XR 100 MG TAB PO SCH (21:00)
[2019-11-28 22:00] VITALS: BP 130/70
[2019-11-29 06:00] VITALS: BP 169/80
[2019-11-29] MEDS: HEPARIN SOD (PORCINE) 5000 UNITS/ML VIAL SC SCH (06:00)
[2019-11-29] MEDS: VANCOMYCIN ORAL SOL 250MG/5ML ORAL SYRINGE PO SCH (06:15)
[2019-11-29 06:20] LABS: HEMATOCRIT 26.3 % (42.0-52.0); HEMOGLOBIN 8.1 g/dl (13.5-17.5); MEAN CORPUSCULAR HEMOGLOBIN 28.7 pg (27.0-33.0); MEAN CORPUSCULAR HGB CONC 30.8 g/dl (32.0-36.5); MEAN CORPUSCULAR VOLUME 93.3 fl (80.0-96.0); PLATELET COUNT, AUTOMATED 145 10^3/uL (150-450); RED BLOOD COUNT 2.82 10^6/uL (4.30-6.10); WHITE BLOOD COUNT 4.4 10^3/uL (4.0-10.0)
[2019-11-29 06:44] LABS: ALBUMIN 2.7 GM/DL (3.2-5.2); BILIRUBIN,TOTAL 0.9 MG/DL (0.2-1.0); CALCIUM LEVEL 7.5 MG/DL (8.8-10.2); CREATININE FOR GFR 2.84 MG/DL (0.70-1.30); GLOMERULAR FILTRATION RATE 23.3 (>42); POTASSIUM SERUM 3.9 MEQ/L (3.5-5.1); TOTAL PROTEIN 5.3 GM/DL (6.4-8.2)
[2019-11-29] MEDS: CALCITRIOL 0.25 MCG CAP (S0169) PO SCH (08:19)
[2019-11-29 08:20] VITALS: BP 168/81
[2019-11-29] MEDS: FOLIC ACID 1 MG TAB PO SCH (08:20)
[2019-11-29] MEDS: carBAMazepine XR 200 MG TAB PO SCH (08:20)
[2019-11-29] MEDS: FERROUS SULFATE 325MG TAB PO SCH (08:20)
[2019-11-29] MEDS: amLODIPine 10 MG TAB PO SCH (08:20)
[2019-11-29] MEDS: VALSARTAN 80 MG TAB (DIOVAN) PO SCH (08:21)
[2019-11-29] MEDS: NS 1,000 ML IV SCH (08:24)
--- NOTE | 2019-11-29 13:39 | DS.PDOC ---
Discharge Summary General Date of Admission Nov 28, 2019 at 02:42 Date of Discharge 11/29/19 Discharge Summary PROCEDURES PERFORMED DURING STAY: [None]. ADMITTING DIAGNOSES: Nausea and vomiting C. difficile colitis Chronic kidney disease secondary to polycystic kidney disease Hypertension. Seizure disorder DISCHARGE DIAGNOSES: Nausea and vomiting C. difficile colitis rule out Chronic kidney disease secondary to polycystic kidney disease Hypertension. Seizure disorder COMPLICATIONS/CHIEF COMPLAINT: C Difficile Colitis,Essential Hypertension,Polycys. HISTORY OF PRESENT ILLNESS: 74-year-old male with past medical history of chronic kidney disease secondary to polycystic kidney disease, hypertension and seizure disorder, presents from home with vomiting and fever for the past couple of days. He has no other associated symptoms, denies any diarrhea, chest pain, shortness of breath, abdominal pain or urinary complaints. In the ED, his stool PCR is positive for C. difficile. HOSPITAL COURSE: During hospital stay patient received treatment with vancomycin by mouth, however patient didn't have diarrhea, his stool was formed. Most likely it's C. difficile colonization. I discontinued vancomycin by mouth. Nausea and vomiting resolved, patient had nausea and vomiting most likely due to viral gastroenteritis DISCHARGE MEDICATIONS: Please see below. ALLERGIES: Please see below. PHYSICAL EXAMINATION ON DISCHARGE: VITAL SIGNS: Please see below. GENERAL: No distress HEENT: Normocephalic, atraumatic, dry mucous membranes NECK: Supple CARDIOVASCULAR EXAMINATION: S1, S2, no murmurs RESPIRATORY EXAMINATION: Clear to auscultation, no wheezing ABDOMINAL EXAMINATION: Soft, nontender, nondistended, positive bowel sounds EXTREMITIES: Range of motion intact SKIN: No rash NEUROLOGICAL EXAMINATION: Alert and oriented 3, no focal deficits PSYCHIATRIC EXAMINATION: Calm and cooperative LABORATORY DATA: Please see below. IMAGING: Findings: The mediastinum and cardiac silhouette are stable and within normal limits for portable technique. The lung mauro are clear without acute consolidation, effusion, or pneumothorax. Skeletal structures are intact. Impression: No acute cardiopulmonary process appreciated. Electronically Signed by PROGNOSIS: Favorable ACTIVITY: As tolerated DIET: Cardiac DISPOSITION: 01 Home, Self-Care. DISCHARGE INSTRUCTIONS: Follow-up with PCP DISCHARGE CONDITION: Stable TIME SPENT ON DISCHARGE: Greater than 15 minutes. Vital Signs/I&Os Vital Signs Date Time Temp Pulse Resp B/P (MAP) Pulse Ox O2 Delivery O2 Flow Rate FiO2 11/29/19 08:20 67 168/81 11/29/19 06:00 97.9 18 98 Room Air I&O- Last 24 Hours up to 6 AM 11/29/19 06:00 Intake Total 2740 ml Output Total 1550 ml Balance 1190 ml Laboratory Data Labs 24H Laboratory Tests 2 11/28/19 14:49: Nucleated Red Blood Cells % (auto) 0.0, Anion Gap 10, Glomerular Filtration Rate 21.4L, Calcium Level 7.5L, Magnesium Level 2.0 11/29/19 05:38: Nucleated Red Blood Cells % (auto) 0.0, Anion Gap 6L, Glomerular Filtration Rate 23.3L, Calcium Level 7.5L, Magnesium Level 2.0, Total Bilirubin 0.9#, Aspartate Amino Transf (AST/SGOT) 15, Alanine Aminotransferase (ALT/SGPT) 17, Alkaline Phosphatase 96, Total Protein 5.3L, Albumin 2.7#L, Albumin/Globulin Ratio 1.04 CBC/BMP Laboratory Tests 11/28/19 14:49 11/29/19 05:38 Microbiology Microbiology 11/27/19 Gastrointestinal Tract Panel (PCR) - Final, Complete Clostridium Difficile A/B 11/27/19 Blood Culture - Preliminary, Resulted No growth after 24 hours . All specim... 11/27/19 Blood Culture - Preliminary, Resulted No growth after 24 hours . All specim... Discharge Medications Scheduled Amlodipine Besylate (Amlodipine Besylate) 10 Mg Tab, 10 MG PO DAILY, (Reported) Atorvastatin Calcium (Atorvastatin Calcium) 80 Mg Tab, 40 MG PO DAILY, (Reported) Calcitriol (Calcitriol) 0.25 Mcg Cap, 0.25 MCG PO DAILY, (Reported) Carbamazepine (Tegretol Xr) 200 Mg Tab.er.12h, 400 MG PO QAM, (Reported) Carbamazepine (Tegretol Xr) 200 Mg Tab.er.12h, 200 MG PO QHS, (Reported) TAKES WITH 100MG TABLET FOR TOTAL OF 300MG Carbamazepine (Tegretol Xr) 100 Mg Tab.er.12h, 100 MG PO QHS, (Reported) TAKES WITH 200MG TABLET FOR TOTAL OF 300MG Cyanocobalamin (Vitamin B-12) (Vitamin B-12) 1,000 Mcg Tab.subl, 1,000 MCG SL DAILY, (Reported) Epoetin Sarbjit (Procrit) 20,000 Unit/1 Ml Vial, 12,000 UNITS SC Q30D, (Reported) Ferrous Sulfate (Ferrous Sulfate) 324 Mg Tablet.dr, 324 MG PO DAILY, (Reported) Folic Acid (Folic Acid) 1 Mg Tab, 1 MG PO DAILY, (Reported) Pantoprazole Sodium (Pantoprazole Sodium) 40 Mg Tab, 40 MG PO Q2D, (Reported) Valsartan (Valsartan) 320 Mg Tablet, 320 MG PO DAILY, (Reported) Scheduled PRN Clonidine HCl (Clonidine HCl) 0.1 Mg Tablet, 0.1 MG PO Q6H PRN for ANXIETY, (Reported) Allergies Coded Allergies: allopurinol (Verified Allergy, Unknown, 11/27/19) clopidogrel (Verified Allergy, Unknown, 11/27/19) sertraline (Verified Allergy, Unknown, 11/27/19) OSKAR FOSS DO Nov 29, 2019 13:39
--- NOTE | 2019-11-29 15:21 | ECGEPIP ---
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
== END 2019-11-29 12:50 | disposition home or self-care (01) | DRG 372 ==
LOC: M ED 18:43 → M ED INP 11-28 02:42 → M MSPAV 11-28 03:43
PROVIDERS: ADMIT Internal Medicine; ATTEND Internal Medicine
DX: A04.72 Enterocolitis due to Clostridium difficile, not specified as recurrent (principal); N18.4 Chronic kidney disease, stage 4 (severe); Q61.3 Polycystic kidney, unspecified; I12.9 Hypertensive chronic kidney disease with stage 1 through stage 4 chronic kidney disease, or unspecified chronic kidney disease; G40.909 Epilepsy, unspecified, not intractable, without status epilepticus; Z79.899 Other long term (current) drug therapy; Z88.8 Allergy status to other drugs, medicaments and biological substances

== ENCOUNTER 2019-12-19 21:08 | Emergency (ER) | payer OTHER ==
[~2019-12-19] VITALS: Ht 185.4 cm; Wt 72.7 kg
[~2019-12-19 21:08] MED LIST changes: +FERR324T2 PO; +PROC20004 SC; +TEGR100T3 PO; +TEGR1TAB PO; +VITA-113 SL
[2019-12-19] MEDS ORDERED: NS 1,000 ML IV SCH (21:30)
--- NOTE | 2019-12-19 21:47 | REPVR ---
PROCEDURE INFORMATION: Exam: CT Head Without Contrast Exam date and time: 12/19/2019 9:32 PM Age: 74 years old Clinical indication: Syncope and collapse TECHNIQUE: Imaging protocol: Computed tomography of the head without contrast. Radiation optimization: All CT scans at this facility use at least one of these dose optimization techniques: automated exposure control; mA and/or kV adjustment per patient size (includes targeted exams where dose is matched to clinical indication); or iterative reconstruction. 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 There is minimal patchy low attenuation of deep white matter. There is slight prominence of the peripheral sulci. Small old lacunar infarct in the anterior right caudate nucleus. Ventricles: There is slight prominence of the central ventricular system. Bones/joints: Unremarkable. No acute fracture. Sinuses: Visualized sinuses are unremarkable. No fluid levels. Mastoid air cells: Visualized mastoid air cells are well aerated. Soft tissues: Unremarkable. IMPRESSION: 1. There has been little change from 11/15/2018. No acute interval intracranial process is identified. 2. 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 Electronically signed by: Sung Atkinson On 12/19/2019 21:46:34 PM
[2019-12-19 22:07] LABS: BASO % 0.7 % (0.0-1.0); EOS # 0.2 10^3/uL (0.0-0.5); EOS % 3.5 % (0.0-3.0); HEMATOCRIT 31.2 % (42.0-52.0); HEMOGLOBIN 9.5 g/dl (13.5-17.5); LYMPH # 0.8 10^3/uL (1.5-5.0); LYMPH % 14.5 % (24.0-44.0); MEAN CORPUSCULAR HEMOGLOBIN 29.1 pg (27.0-33.0); MEAN CORPUSCULAR HGB CONC 30.4 g/dl (32.0-36.5); MEAN CORPUSCULAR VOLUME 95.4 fl (80.0-96.0); MONO # 0.4 10^3/uL (0.0-0.8); MONO % 7.5 % (0.0-5.0); NEUTROPHILS # 4.2 10^3/uL (1.5-8.5); NEUTROPHILS % 73.3 % (36.0-66.0); PLATELET COUNT, AUTOMATED 173 10^3/uL (150-450); RED BLOOD COUNT 3.27 10^6/uL (4.30-6.10); WHITE BLOOD COUNT 5.7 10^3/uL (4.0-10.0)
[2019-12-19 22:17] LABS: INR 1.05; PROTHROMBIN TIME 13.4 SECONDS (11.8-14.0)
[2019-12-19 22:34] LABS: BLOOD UREA NITROGEN 38 MG/DL (7-18); CALCIUM LEVEL 7.6 MG/DL (8.8-10.2); CARBON DIOXIDE LEVEL 21 MEQ/L (21-32); CHLORIDE LEVEL 116 MEQ/L (98-107); CK-MB VALUE MASS < 1.0 NG/ML (<3.6); CPK CREATINE PHOSPHOKINASE 71 U/L (39-308); CREATININE FOR GFR 3.27 MG/DL (0.70-1.30); GLOMERULAR FILTRATION RATE 19.8 (>42); GLUCOSE, FASTING 111 MG/DL (70-100); MAGNESIUM LEVEL 2.2 MG/DL (1.8-2.4); MB/CK RELATIVE INDEX 1.41 (< OR =4); POTASSIUM SERUM 4.6 MEQ/L (3.5-5.1); SODIUM LEVEL 144 MEQ/L (136-145); TROPONIN I < 0.02 NG/ML (< 0.10)
[2019-12-19] MEDS ORDERED: MAGNESIUM CITRATE 300 ML BTL PO ONE (23:00)
[2019-12-19] MEDS ORDERED: BISACODYL 10 MG SUPP PR ONE (23:00)
[2019-12-19 23:05] VITALS: BP 135/66
--- NOTE | 2019-12-20 08:29 | REP ---
KUB: Two views. History: Constipation. Comparison radiographs from February 17, 2014. Findings: The bowel gas pattern is normal with a small quantity of air and stool visible proximally and distally. No large or small bowel dilation is seen. No mass, organomegaly, or pathologic calcifications appreciated. There are phleboliths in the pelvis. Impression: Unremarkable KUB. Electronically Signed by Josr Lucas MD 12/20/2019 08:20 A
--- NOTE | 2019-12-20 12:49 | ECGEPIP ---
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
== END 2019-12-19 23:06 | disposition home or self-care (01) ==
LOC: M ED 21:08
DX: R55 Syncope and collapse (principal); K59.00 Constipation, unspecified; I10 Essential (primary) hypertension; Z86.73 Personal history of transient ischemic attack (TIA), and cerebral infarction without residual deficits; N18.4 Chronic kidney disease, stage 4 (severe); Q61.2 Polycystic kidney, adult type; Z79.899 Other long term (current) drug therapy; Z88.8 Allergy status to other drugs, medicaments and biological substances

== ENCOUNTER → 2020-01-01 | Outpatient (REF) | payer OTHER | LOC: M LAB REF 13:01 | PROVIDERS: ATTEND Psychiatry & Neurology Neurology | DX: R56.9 Unspecified convulsions (principal) ==

== ENCOUNTER → 2020-02-04 | Outpatient (REF) | payer OTHER ==
[~2020-02-04] MED LIST changes: -FLUO20CA19 PO; +FLUO20CA22 PO
== END ==
LOC: M LAB REF 12:53
PROVIDERS: ATTEND Nurse Practitioner Family
DX: Z79.899 Other long term (current) drug therapy (principal)

== ENCOUNTER → 2020-04-07 | Outpatient (REF) | payer OTHER | LOC: M LAB REF 16:55 | PROVIDERS: ATTEND Nurse Practitioner Family | DX: Z51.81 Encounter for therapeutic drug level monitoring (principal); Z79.899 Other long term (current) drug therapy ==

== ENCOUNTER → 2020-05-05 | Outpatient (REF) | payer OTHER | LOC: M LAB REF 16:51 | PROVIDERS: ATTEND Nurse Practitioner Family | DX: D50.9 Iron deficiency anemia, unspecified (principal) ==

== ENCOUNTER → 2020-07-11 | Outpatient (REF) | payer OTHER ==
[~2020-07-11] MED LIST changes: -AMLO10TA5 PO; +AMLO1TAB25 PO; -ASPI81TA85 PO; +ASPI81TA86 PO; +AUGM500T34 PO; +CARB100T PO; +CETI10TA4 PO; +HYDR10TAB PO; +MAGN500T6 PO; +MOM30SS2 PO; +OCEA0.654; +PANT40TA29 PO; -PANT40TA3 PO; +PROC20004 INJ; +ROCA0.5C PO; +SENN1TAB41 PO; +VALS1TAB66 PO
[2020-08-26 11:17] LABS: PERCENT SATURATION 20.9 % (19.7-50.0)
== END ==
LOC: M LAB REF 10:10
PROVIDERS: ATTEND Internal Medicine Nephrology
DX: D50.9 Iron deficiency anemia, unspecified (principal)

== ENCOUNTER 2020-08-30 12:55 | Outpatient (CLI) | payer OTHER ==
[~2020-08-30] VITALS: Ht 182.9 cm; Wt 77.0 kg
[~2020-08-30 12:55] MED LIST changes: -AUGM500T34 PO; -CARB100T PO; -CETI10TA4 PO; -HYDR10TAB PO; -MAGN500T6 PO; -MOM30SS2 PO; -OCEA0.654; -PROC20004 INJ; -ROCA0.5C PO; -SENN1TAB41 PO; -VALS1TAB66 PO
[2020-08-30] MEDS ORDERED: EPINEPHrine INJ 1 MG/ML 1ML AMP IM PRN (13:00)
[2020-08-30] MEDS ORDERED: methylPREDNISolone 125MG 2ML VIAL IV PRN (13:00)
[2020-08-30] MEDS ORDERED: diphenhydrAMINE 50MG/ML VIAL (J1200) IV PRN (13:00)
[2020-08-30] MEDS ORDERED: NS 1,000 ML IV SCH (13:00)
[2020-08-30] MEDS ORDERED: ALBUTEROL SULFATE 2.5 MG/0.5 ML INH NEB SOLN INH PRN (13:00)
[2020-08-30] MEDS ORDERED: FERRIC CARBOXYMALTOSE INJ 750 MG in NS 250 ML IV ONE (13:00)
[2020-08-30] MEDS ORDERED: diphenhydrAMINE 50MG/ML VIAL (J1200) IV ONE (13:00)
[2020-08-30 13:17] VITALS: BP 160/72
[2020-08-30 14:01] VITALS: BP 132/61
[2020-08-30 14:36] VITALS: BP 144/65
[2020-08-30 15:28] VITALS: BP 142/66
[2020-08-31] MEDS ORDERED: ROCA0.5C PO (23:22)
[2020-08-31] MEDS ORDERED: OCEA0.654 (23:22)
[2020-08-31] MEDS ORDERED: PROC20004 INJ (23:22)
[2020-08-31] MEDS ORDERED: CETI10TA4 PO (23:22)
[2020-08-31] MEDS ORDERED: CARB100T PO ×2 (23:22)
[2020-08-31] MEDS ORDERED: MAGN500T6 PO (23:22)
[2020-08-31] MEDS ORDERED: VALS1TAB66 PO (23:22)
== END 2020-08-30 15:30 | disposition home or self-care (01) ==
LOC: M INFU 12:55
PROVIDERS: ATTEND Internal Medicine Nephrology
DX: D50.9 Iron deficiency anemia, unspecified (principal); Z88.8 Allergy status to other drugs, medicaments and biological substances

== ENCOUNTER 2020-08-31 19:49 | Inpatient (IN) | payer OTHER ==
[~2020-08-31] VITALS: Ht 185.4 cm; Wt 73.8 kg
[2020-08-31] MEDS ORDERED: NS 1,000 ML IV ONE (20:30)
[2020-08-31] MEDS ORDERED: ONDANSETRON 4MG/2ML VIAL IV ONE (20:30)
[2020-08-31] MEDS ORDERED: MORPHINE 2 MG/ML 1ML VIAL (J2270) IV PRN (20:30)
--- NOTE | 2020-08-31 20:49 | ECGEPIP ---
[facility] - ED Test Date: 2020-08-31 Pat Name: SYLVIA LINCOLN Department: Room: - Gender: Male Communications Marketing Intern: joelle : 1945 Requested By: Daniel Christensen Order Number: [id number] Reading MD: Christopher Gallardo Measurements Intervals [place] Rate: 48 P: 53 TN: 226 QRS: 32 QRSD: 90 T: 72 QT: 440 QTc: 396 Interpretive Statements SINUS BRADYCARDIA WITH FIRST DEGREE AV BLOCK LOW QRS VOLTAGE IN PRECORDIAL LEADS BASELINE ARTIFACT AFFECTS INTERPRETATION Electronically Signed on 08-31-2020 20:49:25 EDT by Christopher Gallardo
[2020-08-31 20:54] LABS: BASO % 0.5 % (0.0-1.0); EOS # 0.1 10^3/uL (0.0-0.5); HEMATOCRIT 25.9 % (42.0-52.0); HEMOGLOBIN 7.7 g/dl (13.5-17.5); LYMPH # 0.6 10^3/uL (1.5-5.0); LYMPH % 8.8 % (24.0-44.0); MEAN CORPUSCULAR HEMOGLOBIN 27.6 pg (27.0-33.0); MEAN CORPUSCULAR HGB CONC 29.7 g/dl (32.0-36.5); MEAN CORPUSCULAR VOLUME 92.8 fl (80.0-96.0); MONO # 0.4 10^3/uL (0.0-0.8); NEUTROPHILS # 5.3 10^3/uL (1.5-8.5); NEUTROPHILS % 82.2 % (36.0-66.0); PLATELET COUNT, AUTOMATED 141 10^3/uL (150-450); RED BLOOD COUNT 2.79 10^6/uL (4.30-6.10); WHITE BLOOD COUNT 6.5 10^3/uL (4.0-10.0)
[2020-08-31 21:04] LABS: INR 0.96
[2020-08-31 21:05] LABS: PARTIAL THROMBOPLASTIN TIME 23.7 SECONDS (24.2-38.5)
--- NOTE | 2020-08-31 21:06 | REPVR ---
PROCEDURE INFORMATION: Exam: CT Abdomen And Pelvis Without Contrast Exam date and time: 08/31/2020 8:49 PM Age: 75 years old Clinical indication: Abdominal pain; Additional info: Luq pain, elev creatinine TECHNIQUE: Imaging protocol: Computed tomography of the abdomen and pelvis without contrast. Radiation optimization: All CT scans at this facility use at least one of these dose optimization techniques: automated exposure control; mA and/or kV adjustment per patient size (includes targeted exams where dose is matched to clinical indication); or iterative reconstruction. COMPARISON: CT ABD PELVIS W/O CONTRAST 11/17/2018 2:08 PM FINDINGS: Lungs: No suspicious mass or airspace process in the visualized lung bases. Heart: Small pericardial effusion is present. Mediastinal space: Small hiatal hernia is present. Liver: Multiple hepatic cysts with similar appearance compared to the previous exam. Gallbladder and bile ducts: Gallbladder is present and shows no evidence of gallstone. Pancreas: Noncontrast pancreas shows no obvious mass or adjacent fluid. Spleen: Noncontrast spleen shows no obvious focal deformity. Adrenals: Adrenal glands are normal in appearance. Kidneys and ureters: Polycystic kidneys. Nonobstructive renal calculi. No hydronephrosis or ureter stone. Stomach and bowel: No evidence of small bowel obstruction. Large volume of stool is seen throughout the colon. Appendix: Normal caliber appendix is identified, with no adjacent inflammation. Intraperitoneal space: No pneumoperitoneum. Vasculature: No aortic aneurysm. Lymph nodes: No enlarged lymph nodes. Urinary bladder: Urinary bladder appears normal. Reproductive: No overt enlargement of the prostate gland. Bones/joints: Bony structures are normal except for lumbar spine degenerative disc changes. Soft tissues: No concerning focal abnormality of the extra-abdominal and pelvic soft tissues. Other findings: Limited evaluation without enteric or IV contrast. Decreased attenuation of cardiac blood pool relative to the intraventricular septum suggests anemia. IMPRESSION: 1. Nonobstructive bilateral renal calculi in a patient with underlying polycystic kidney disease. No hydronephrosis, ureter stone or change in appearance of the kidneys. 2. Multiple hepatic cysts, with similar pattern appearance compared to the prior CT. Electronically signed by: John Gill On 08/31/2020 21:06:08 PM
--- NOTE | 2020-08-31 21:12 | REPVR ---
PROCEDURE INFORMATION: Exam: XR Chest, 1 View Exam date and time: 08/31/2020 9:09 PM Age: 75 years old Clinical indication: Shortness of breath; Additional info: Abdl pain TECHNIQUE: Imaging protocol: XR of the chest Views: 1 view. COMPARISON: No relevant prior studies available. FINDINGS: Lungs: Degree of lung inflation is normal. No evidence of pulmonary edema. No focal consolidation or parenchymal lung mass. Pleural space: No pleural effusion or pneumothorax. Heart/Mediastinum: Cardiac silhouette appears normal. No adenopathy or hilar mass. Bones/joints: Osseous structures show no concerning abnormality. IMPRESSION: No acute or focal cardiopulmonary process. Electronically signed by: John Gill On 08/31/2020 21:12:13 PM
[2020-08-31 21:29] LABS: ALBUMIN 3.4 GM/DL (3.2-5.2); ALT/SGPT 24 U/L (12-78); AMYLASE 112 U/L (25-115); BILIRUBIN,DIRECT 0.1 MG/DL (0.0-0.2); BILIRUBIN,TOTAL 0.2 MG/DL (0.2-1.0); CARBAMAZEPINE (TEGRETOL) LEVEL 10.9 UG/ML (4.0-10.0); CK-MB VALUE MASS 1.2 NG/ML (<3.6); CPK CREATINE PHOSPHOKINASE 55 U/L (39-308); IRON (FE) 396 UG/DL (65-175); LIPASE 243 U/L (73-393); MB/CK RELATIVE INDEX 2.18 (< OR =4); TROPONIN I < 0.02 NG/ML (< 0.10)
[2020-08-31 22:05] LABS: FREE T4 0.83 NG/DL (0.76-1.46)
--- NOTE | 2020-08-31 22:38 | HPEPDOC ---
[facility] Medical History & Physical Date of Admission Aug 31, 2020 Date of Service: Aug 31, 2020 Attending Physician: MU SULTANA MD History and Physical TIME OF SERVICE: 1145PM CHIEF COMPLAINT: weakness HISTORY OF PRESENT ILLNESS: This 75 yr old [place] had his first infusion of Venofer yesterday. This evening at around 7PM, after eating dinner,he developed left sided non-radiating 9/10 in severity relapsing and remitting abdominal pain that was followed by a syncopal episode that was witnessed by his . He was unconscious for about 5 min. Prior to loosing consciousness he admits to feeling dizzy, but denies having chest pain or f/c. His last BM was this morning; because of his poor vision is not sure if he has been having blood in his stools. Per , the patient vomited in the ER and heme occult was positive. Because his Hg had dropped from 9.5 in Dec to 7.7 today PRBCs have been ordered. The patient is DNR/DNI and declined c-scope. 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 HOME MEDICATIONS: Please see below. PHYSICAL EXAMINATION: Vital Signs Date Time Temp Pulse Resp B/P (MAP) Pulse Ox O2 Delivery O2 Flow Rate FiO2 08/31/20 20:06 49 16 172/80 98 Room Air 08/31/20 20:14 96.0 GEN: well-nourished / well developed/ NAD INTEGUMENT: not flushed/ not jaundice HEENT: NCAT / lips acyanotic /mucus membranes moist and pink CVS: RRR/NMRG LUNGS: able to speak full sentences without stopping to take a breath / no coughing / lungs are clear to auscultation bilaterally on room air ABDOMEN: Contour ( distended) / soft & not tender with palpation MSK/EXTREMITIES: range of motion intact in all 4 extremities NEURO: CN 2-12 are grossly intact / speech is not dysarthric PSYCH: alert and oriented / able to understand and follow all commands LABORATORY DATA: 08/31/20 20:33 Immature Granulocyte % (Auto) 0.5, Neutrophils (%) (Auto) 82.2H, Lymphocytes (%) (Auto) 8.8L, Monocytes (%) (Auto) 6.0H, Eosinophils (%) (Auto) 2.0, Basophils (%) (Auto) 0.5, Neutrophils # (Auto) 5.3, Lymphocytes # (Auto) 0.6L, Monocytes # (Auto) 0.4, Eosinophils # (Auto) 0.1, Basophils # (Auto) 0.0, Nucleated Red Blood Cells % (auto) 0.0, Prothrombin Time 13.0, Prothromb Time International Ratio 0.96, Activated Partial Thromboplast Time 23.7L, Lactic Acid Level 2.5*H, Iron Level 396H, Total Bilirubin 0.2, Direct Bilirubin 0.1, Aspartate Amino Transf (AST/SGOT) 24, Alanine Aminotransferase (ALT/SGPT) 24, Alkaline Phosphatase 115, Total Creatine Kinase 55, Creatine Kinase MB 1.2, Creatine Kinase MB Relative Index 2.18, Troponin I < 0.02, Total Protein 6.0L, Albumin 3.4, Albumin/Globulin Ratio 1.3, Amylase Level 112, Lipase 243, Thyroid Stimulating Hormone (TSH) 1.300, Free Thyroxine 0.83, Carbamazepine (Tegretol) Level 10.9H 08/31/20 20:47: POC Glucose (Misc Panel) 133H, POC Sodium (Misc Panel) 143, POC Potassium (Misc Panel) 4.0, POC Chloride (Misc Panel) 112H, POC Total CO2 (Misc Panel) 18.0L, POC Blood Urea Nitrogen (Misc Panel 37H, POC Ionized Calcium (Misc Panel) 4.7, POC Creatinine (Misc Panel) 3.2H, POC Hematocrit (Misc Panel) 26.0L IMAGING: CT abd/pelvis w/o contrast "IMPRESSION: 1. Nonobstructive bilateral renal calculi in a patient with underlying polycystic kidney disease. No hydronephrosis, ureter stone or change in appearance of the kidneys. 2. Multiple hepatic cysts, with similar pattern appearance compared to the prior CT." MICROBIOLOGY: 08/31/20 Blood Culture, Received Pending 08/31/20 Blood Culture, Received Pending ASSESSMENT: is a 75 yr old w a hx of anemia, HTN, PCKD/CKD4 w secondary hyperparathyroidism, CVAs/TIAs and Seizure disorder who presented w c/o of abdominal pain followed by syncope and will be admitted primarily for management of acute anemia. PLAN: 1 Acute blood loss Anemia His anemia is likely multifactorial (ie blood loss, anemia of chronic dz, anemia 2/2 CKD and possibly angiodysplasias which are common in elderly and those w CKD) Plan: admit to med surg/ f/u serial Hg after transfusions / pt declined c-scope but also has a hx of vascular dementia, will ask the day time team to confirm whether his anemia will be managed conservatively with the patient's , in the meanwhile will order a clear liquid diet /c/w PO Iron 2 Syncope vs Seizure Possibly 2/2 acute anemia vs acute abdominal pain vs bradycardia EKG showed 1st degree AV block w a rate of 42 Trop was wnl Lactic acid was elevated If its syncope his [place] Syncope Risk Score to determine 30 day risk of serious adverse events in patients w syncope is 0 = low risk Plan: telemetry / orthostats/ it's to late to check prolactin / check serum Carbamezapine levels / despite his hx of CVAs will hold of CT head for now bc there are other more plausible explanations for the syncope 3 Left sided abdominal pain Cause TBD CT of abdomen and lipase are unrevealing Plan: monitor for reoccurrence 4 Lactic Acidosis Possibly 2/2 seizure or other cause TBD He doesn't have SIRS criteria which makes infection less likely Plan: trend lactic acid / f/u blood cx ordered in ER 5 Acute on Chronic Thrombocytopenia Possibly 2/2 aplastic anemia, MDS, other infiltrative process such as myelofibrosis Plan: trend CBC / his can f/u with PCP for Heme consult on an out pt basis if they wish to have additional testing 6 Bradycardia w 1st degree AV block Likely 2/2 amlodipine He doesn't have CP His trop & TSH were wnl Plan:telemetry / if he has episodes of symptomatic bradycardia the day time team may consider switching him from amlodipine to another med for his HTN 7 Seizure disorder Plan: Carbamezapine 8 Constipation Pt reports having "small" BMs over the last 2 days Plan: stool softeners PRN 9 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 Polycystic kidney disease w Secondary hyperparathyroidism GFR and Cr at baseline Plan: f/u BMP / calcitriol / can f/u w on a out pt basis 10 Multiple TIAs/CVAs w vascular dementia / Dyslipidemia Plan: atorvastatin 11 Chronic Hypertension Plan:clonidine, amlodipine & valsartan 12 GERD Plan: PPI DVT PROPHYLAXIS: SCDs DISPOSITION: likely home after more than 2 midnight's stay Home Medications Scheduled Amlodipine Besylate (Amlodipine Besylate) 10 Mg Tab, 10 MG PO QHS Atorvastatin Calcium (Atorvastatin Calcium) 80 Mg Tab, 40 MG PO QHS Calcitriol (Rocaltrol) 0.5 Mcg Capsule, 1 MCG PO 5XW SATURDAY - SATURDAY Carbamazepine (Carbamazepine ER) 100 Mg Tab.er.12h, 200 MG PO DAILY Carbamazepine (Carbamazepine ER) 100 Mg Tab.er.12h, 300 MG PO QHS Cetirizine HCl (Cetirizine HCl) 10 Mg Tablet, 10 MG PO DAILY Ferrous Sulfate (Ferrous Sulfate) 324 Mg Tablet.dr, 324 MG PO DAILY Folic Acid (Folic Acid) 1 Mg Tab, 1 MG PO DAILY Magnesium Gluconate (Magnesium Gluconate) 27 Mg Tablet, 500 MG PO BID Pantoprazole Sodium (Pantoprazole Sodium) 40 Mg Tab, 40 MG PO Q2D Valsartan (Valsartan) 80 Mg Tablet, 80 MG PO DAILY Scheduled PRN Clonidine HCl (Clonidine HCl) 0.1 Mg Tablet, 0.1 MG PO Q6H PRN for ANXIETY Sodium Chloride ([place]) 104 Ml [place], 1 SPRAY NA BID PRN for NASAL CONGESTION Allergies Coded Allergies: allopurinol (Verified Allergy, Unknown, 12/19/19) clopidogrel (Verified Allergy, Unknown, 12/19/19) sertraline (Verified Allergy, Unknown, 12/19/19) A-FIB/CHADSVASC A-FIB History Current/History of A-Fib/PAF?: No Current PO Anticoag Therapy: No MU SULTANA MD Aug 31, 2020 22:37
[2020-08-31] MEDS ORDERED: ACETAMINOPHEN TAB 650MG DOSE (2X325MG) PO PRN (22:45)
[2020-08-31] MEDS ORDERED: MOM 30ML SUSPENSION UDC PO PRN (22:45)
[2020-08-31 22:56] VITALS: BP 143/65
[2020-08-31 23:11] VITALS: BP 143/71
[2020-08-31] MEDS ORDERED: CETI10TA4 PO (23:22)
[2020-08-31] MEDS ORDERED: OCEA0.654 (23:22)
[2020-08-31] MEDS ORDERED: ROCA0.5C PO (23:22)
[2020-08-31] MEDS ORDERED: CARB100T PO ×2 (23:22)
[2020-08-31] MEDS ORDERED: VALS1TAB66 PO (23:22)
[2020-08-31] MEDS ORDERED: PROC20004 INJ (23:22)
[2020-08-31] MEDS ORDERED: MAGN500T6 PO (23:22)
[2020-08-31] MEDS ORDERED: SODIUM CHLORIDE NASAL 0.65% SPRAY BTL (OCEAN) PRN (23:30)
[2020-08-31] MEDS ORDERED: cloNIDine 0.1 MG TAB PO PRN (23:30)
[2020-08-31 23:43] VITALS: BP 153/72
[2020-09-01] VITALS (9 sets, daily range): BP systolic 151–183; BP diastolic 64–84
[2020-09-01] MEDS: amLODIPine 10 MG TAB PO SCH ×2 (00:22→20:03)
[2020-09-01] MEDS: ATORVASTATIN 20 MG TAB PO SCH ×2 (00:22→20:01)
[2020-09-01] MEDS: carBAMazepine XR 100 MG TAB PO SCH ×2 (00:22→20:01)
[2020-09-01 07:43] LABS: HEMATOCRIT 26.4 % (42.0-52.0); HEMOGLOBIN 8.4 g/dl (13.5-17.5); MEAN CORPUSCULAR HEMOGLOBIN 28.5 pg (27.0-33.0); MEAN CORPUSCULAR HGB CONC 31.8 g/dl (32.0-36.5); MEAN CORPUSCULAR VOLUME 89.5 fl (80.0-96.0); PLATELET COUNT, AUTOMATED 140 10^3/uL (150-450); RED BLOOD COUNT 2.95 10^6/uL (4.30-6.10); WHITE BLOOD COUNT 6.5 10^3/uL (4.0-10.0)
[2020-09-01 07:58] LABS: CREATININE FOR GFR 2.9 MG/DL (0.70-1.30); GLOMERULAR FILTRATION RATE 22.7 (>42); POTASSIUM SERUM 4.5 MEQ/L (3.5-5.1)
--- NOTE | 2020-09-01 08:28 | IPNPDOC ---
Date Seen The patient was seen on 09/01/20. Progress Note SUBJECTIVE: Patient seen and examined at bedside this morning. She had a large bowel movement while in the ED. Stool looks dark. There is no obvious gross blood or clots noted in the stool. He is currently on clear liquid diet. He states he has been having dark stools for approximately a year and a half. He reports having abdominal pain last night associated with an episode of vomiting. He does not recall seeing blood in the vomitus. At this time. He is agreeable to upper endoscopy and colonoscopy. I spoke to his . She agrees with colonoscopy. He has mentioned several times that he would like to leave AMA. However, discussed with Dr. Mix who is able to perform upper endoscopy and colonoscopy tomorrow. Patient will stay. OBJECTIVE PHYSICAL EXAMINATION: VITAL SIGNS: please see below General: NAD, comfortable HEENT: PERRLA, EOMI, sclerae clear Neck: supple, normal ROM, no JVD Respiratory: lungs CTAB, no wheeze, no rales, no crackles CVS: RRR, normal S1, S2, no murmurs Abdo: soft, no masses, no hepatosplenomegaly, BS+, no rebound tenderness. Rectal exam showed a small non bleeding external hemorrhoid. Internal hemorrhoids appreciated, no gross blood seen. Extremities: no edema, pulses 2+ MSK: no joint deformities, normal ROM Neuro: no focal neuro deficits, moving all 4 extremities, CN2-12 intact. Strength 5/5 in all 4 extremities. No nystagmus. Psych: calm, cooperative, AAO x 3 LABORATORY DATA, IMAGING STUDIES, MICROBIOLOGY: Please see below. DVT prophylaxis ordered?: SHRADDHA, SCDs ASSESSMENT AND PLAN: Mr. Lunsford is a 75-year-old [facility] with a history of CK, D4, anemia, secondary hyperparathyroidism, vascular dementia, history of TIA/CVA, chronic hypertension, seizure disorder, hyperlipidemia, GERD, and C. difficile colitis. He presented to [facility] after a syncopal episode following severe left-sided, nonradiating abdominal pain and 1 episode of vomiting. On arrival to the ED, patient's hemoglobin was 7.7, which is a reduction in baseline from 9.5. Hemoccult positive in the ED. Patient was transfused 2 units. Hemoglobin improved to 8.4. Patient was asking to leave AMA without further investigation, however, after speaking to his . He is in agreement to receive upper endoscopy and colonoscopy. GI consult to Dr. Treviño planning to do an endoscopy tomorrow. Bowel prep ordered. Clear liquid diet. NPO after midnight. PROBLEMS: #Acute blood loss anemia: Hg 7.4 on arrival. reports dark stools for 1.5 years. Has poor compliance with medical follow up. S/p 2 units pRBC, Hg 8.4 (repeat 8.2). No gross blood identified on BM, rectal exam. Discussed with Dr. Treviño. Planned for colonoscopy, upper endoscopy on 09/01. Bowel prep. CLD. NPO after mi dnight. Monitor Hgb. #Syncope/Seizure: continue telemetry. check orthostats. Suspect syncope from a nemia. Seizures controlled with carbamazepine. Check echo. Check carotid US. #L sided abdominal pain: resolved. Negative lipase, amylase. Liver enzymes wnl. #Lactic acidosis: resolved #Acute on Chronic Thrombocytopenia #Bradycardia with 1st degree AV block: HR normalized. TSH wnl. Trop wnl. #Seizure disorder: carbamazepine. serum level 10.9. within therapeutic range. #Constipation: takes PO iron. Bowel prep for c-scope. Will dc on stool softeners. #CKD IV: secondary to polycystic kidney disease. GFR at baseline. Outpatient follow up with nephrology #Hx of TIA/CVA: c/w statin. Hold ASA for now while GI workup ongoing #Chronic HTN: home med clonidine, amlodipine, valsartan #GERD: ppi DVT ppx: SCDs, TEDs. Avoid chemoppx in setting of acute anemia Dispo: admission to last > 2 midnights. DC home pending GI workup, stable hemoglobin. DISPOSITION: Admission to span longer than 2 midnights. Likely DC home, pending medical clearance and stable hemoglobin. Awaiting colonoscopy and upper endoscopy. VS, I&O, 24H, Fishbone Vital Signs/I&O Vital Signs Date Time Temp Pulse Resp B/P (MAP) Pulse Ox O2 Delivery O2 Flow Rate FiO2 09/01/20 05:15 67 16 96 Room Air 09/01/20 04:30 148/65 (92) 09/01/20 02:45 96.8 I&O- Last 24 Hours up to 6 AM 09/01/20 06:00 Intake Total 1540 ml Balance 1540 ml Laboratory Data 24H LABS Laboratory Tests 2 08/31/20 20:33: Immature Granulocyte % (Auto) 0.5, Neutrophils (%) (Auto) 82.2H, Lymphocytes (%) (Auto) 8.8L, Monocytes (%) (Auto) 6.0H, Eosinophils (%) (Auto) 2.0, Basophils (%) (Auto) 0.5, Neutrophils # (Auto) 5.3, Lymphocytes # (Auto) 0.6L, Monocytes # (Auto) 0.4, Eosinophils # (Auto) 0.1, Basophils # (Auto) 0.0, Nucleated Red Blood Cells % (auto) 0.0, Prothrombin Time 13.0, Prothromb Time International Ratio 0.96, Activated Partial Thromboplast Time 23.7L, Lactic Acid Level 2.5*H, Iron Level 396H, Total Bilirubin 0.2, Direct Bilirubin 0.1, Aspartate Amino Transf (AST/SGOT) 24, Alanine Aminotransferase (ALT/SGPT) 24, Alkaline Phosphatase 115, Total Creatine Kinase 55, Creatine Kinase MB 1.2, Creatine Kinase MB Relative Index 2.18, Troponin I < 0.02, Total Protein 6.0L, Albumin 3.4, Albumin/Globulin Ratio 1.3, Amylase Level 112, Lipase 243, Thyroid Stimulating Hormone (TSH) 1.300, Free Thyroxine 0.83, Carbamazepine (Tegretol) Level 10.9H 08/31/20 20:47: POC Glucose (Misc Panel) 133H, POC Sodium (Misc Panel) 143, POC Potassium (Misc Panel) 4.0, POC Chloride (Misc Panel) 112H, POC Total CO2 (Misc Panel) 18.0L, POC Blood Urea Nitrogen (Misc Panel 37H, POC Ionized Calcium (Misc Panel) 4.7, POC Creatinine (Misc Panel) 3.2H, POC Hematocrit (Misc Panel) 26.0L 09/01/20 03:12: Lactic Acid Level 0.4 09/01/20 07:12: Nucleated Red Blood Cells % (auto) 0.0, Anion Gap 6L, Glomerular Filtration Rate 22.7L, Calcium Level 8.0L CBC/BMP Laboratory Tests 08/31/20 20:33 09/01/20 03:12 09/01/20 07:12 Microbiology Microbiology 9/30/20 Blood Culture, Received Pending 08/31/20 Blood Culture, Received Pending DAVID DRISCOLL MD Sep 01, 2020 08:28
[2020-09-01] MEDS ORDERED: MOM 30ML SUSPENSION UDC PO ONE ×2 (12:15→15:00)
[2020-09-01] MEDS: VALSARTAN 80 MG TAB (DIOVAN) PO SCH (12:49)
[2020-09-01] MEDS: FERROUS SULFATE 300MG/5ML UDC LIQUID PO SCH (12:51)
[2020-09-01] MEDS: CALCITRIOL 0.25 MCG CAP (S0169) PO SCH (12:51)
[2020-09-01] MEDS: CETIRIZINE (ZyrTEC) 10 MG TAB PO SCH (12:51)
[2020-09-01] MEDS: carBAMazepine XR 200 MG TAB PO SCH (12:51)
[2020-09-01] MEDS: MAALOX 30 ML SUSP *UDC PO PRN ×2 (12:56→12:58)
[2020-09-01] MEDS ORDERED: POLYETHYLENE GLYCOL (MIRALAX) 238GM BOTTLE PO ONE (18:00)
[2020-09-02 06:00] VITALS: BP 141/71
[2020-09-02] MEDS ORDERED: SODIUM CHLORIDE 0.9% 1000ML IV ONE (06:45)
[2020-09-02 08:05] VITALS: BP 148/72
[2020-09-02 08:14] VITALS: BP 148/72
[2020-09-02] MEDS: CETIRIZINE (ZyrTEC) 10 MG TAB PO SCH (08:14)
[2020-09-02] MEDS: carBAMazepine XR 200 MG TAB PO SCH (08:14)
[2020-09-02] MEDS: VALSARTAN 80 MG TAB (DIOVAN) PO SCH (08:14)
[2020-09-02] MEDS: CALCITRIOL 0.25 MCG CAP (S0169) PO SCH (08:14)
[2020-09-02] MEDS: FERROUS SULFATE 300MG/5ML UDC LIQUID PO SCH (08:14)
[2020-09-02] MEDS ORDERED: MAGNESIUM CITRATE 300 ML BTL PO ONE (08:30)
[2020-09-02] MEDS ORDERED: PANTOPRAZOLE 40MG TAB (PROTONIX) PO SCH (09:00)
--- NOTE | 2020-09-02 09:26 | REPVR ---
PROCEDURE INFORMATION: Exam: US Duplex Bilateral Extracranial Arteries Exam date and time: 09/02/2020 9:08 AM Age: 75 years old Clinical indication: Syncope and collapse; Additional info: Syncope - date changed for machine TECHNIQUE: Imaging protocol: Real-time Duplex ultrasound scan of the bilateral carotid and vertebral arteries combining samano scale, color Doppler and spectral waveform analysis. Bilateral exam. COMPARISON: No relevant prior studies available. FINDINGS: Right common carotid artery: Atherosclerotic disease. No occlusion or stenosis. Waveforms are normal. Right internal carotid artery: Atherosclerotic disease. No occlusion or stenosis. Waveforms are normal. Right ICA/CCA ratio: Within normal limits. Right external carotid artery: Atherosclerotic disease. No stenosis in the origin. Right vertebral artery: Unremarkable. Antegrade flow. Left common carotid artery: Atherosclerotic disease. No occlusion or stenosis. Waveforms are normal. Left internal carotid artery: Atherosclerotic disease. No occlusion or stenosis. Waveforms are normal. Left ICA/CCA ratio: Within normal limits. Left external carotid artery: Atherosclerotic disease. No stenosis in the origin. Left vertebral artery: Unremarkable. Antegrade flow. IMPRESSION: No carotid arterial stenosis. REFERENCES: SRU CRITERIA. The degree of internal carotid artery stenosis is based on criteria defined by the Society of Radiologists in Ultrasound (SRU). Normal is no stenosis. Mild is less than 50% stenosis. Moderate is 50-69% stenosis. Severe is greater than 69% stenosis to near occlusion. Near occlusion is a markedly narrowed lumen. Total occlusion is no detectable patent lumen. Electronically signed by: Danie Vivas On 09/02/2020 09:26:31 AM
[2020-09-02] MEDS: NS 1,000 ML IV SCH ×2 (09:27→13:25)
[2020-09-02 12:18] LABS: BASO % 0.4 % (0.0-1.0); EOS # 0.2 10^3/uL (0.0-0.5); EOS % 3.6 % (0.0-3.0); HEMATOCRIT 29.1 % (42.0-52.0); HEMOGLOBIN 9.1 g/dl (13.5-17.5); LYMPH # 0.6 10^3/uL (1.5-5.0); LYMPH % 12.2 % (24.0-44.0); MEAN CORPUSCULAR HEMOGLOBIN 28.5 pg (27.0-33.0); MEAN CORPUSCULAR HGB CONC 31.3 g/dl (32.0-36.5); MEAN CORPUSCULAR VOLUME 91.2 fl (80.0-96.0); MONO # 0.3 10^3/uL (0.0-0.8); MONO % 7.2 % (0.0-5.0); NEUTROPHILS # 3.6 10^3/uL (1.5-8.5); NEUTROPHILS % 76.2 % (36.0-66.0); PLATELET COUNT, AUTOMATED 137 10^3/uL (150-450); RED BLOOD COUNT 3.19 10^6/uL (4.30-6.10); WHITE BLOOD COUNT 4.7 10^3/uL (4.0-10.0)
[2020-09-02 12:44] LABS: BILIRUBIN,TOTAL 0.2 MG/DL (0.2-1.0); CALCIUM LEVEL 8.2 MG/DL (8.8-10.2); CREATININE FOR GFR 2.77 MG/DL (0.70-1.30); GLOMERULAR FILTRATION RATE 23.9 (>42); MAGNESIUM LEVEL 2.6 MG/DL (1.8-2.4); POTASSIUM SERUM 4.2 MEQ/L (3.5-5.1); TOTAL PROTEIN 5.2 GM/DL (6.4-8.2)
[2020-09-02 14:00] VITALS: BP 159/77
[2020-09-02] MEDS ORDERED: propofoL 500 MG/50 ML VIAL As Ordered ONE (15:26)
[2020-09-02] MEDS ORDERED: LIDOCAINE 2% 100MG/5ML SDV (FOR ANES.) As Ordered ONE (15:26)
--- NOTE | 2020-09-02 16:03 | ROOR ---
Patient Name: Jonn Trent Procedure Date: 09/02/2020 3:43 PM Date of : 1945 Age: 75 Room: [facility] Gender: Male Note Status: Finalized Procedure: Upper GI endoscopy Indications: Unexplained iron deficiency anemia Providers: Kolby TREVIÑO MD Referring MD: 2. Inpatient 2. Inpatient, [facility], Admin., Jm Fairchild MD Requesting Provider: Medicines: Monitored Anesthesia Care Complications: No immediate complications. Procedure: Pre-Anesthesia Assessment: - The heart rate, respiratory rate, oxygen saturations, blood pressure, adequacy of pulmonary ventilation, and response to care were monitored throughout the procedure. The Endoscope was introduced through the mouth, and advanced to the second part of duodenum. The upper GI endoscopy was accomplished without difficulty. The patient tolerated the procedure well. Findings: The esophagus was normal. The stomach was normal. The examined duodenum was normal. Impression: - Normal esophagus. - Normal stomach. - Normal examined duodenum. - No specimens collected. Recommendation: - Observe patient's clinical course. - Continue present medications. Kolby Treviño MD Kolby TREVIÑO MD 09/02/2020 4:02:21 PM Electronically signed by Kolby TREVIÑO MD Number of Addenda: 0 Note Initiated On: 09/02/2020 3:43 PM Estimated Blood Loss: Estimated blood loss: none.
--- NOTE | 2020-09-02 17:34 | ROOR ---
Patient Name: Jonn Trent Procedure Date: 09/02/2020 3:43 PM Date of : 1945 Age: 75 Room: [facility] Gender: Male Note Status: Finalized Procedure: Colonoscopy Indications: Iron deficiency anemia Providers: Kolby TREVIÑO MD Referring MD: 2. Inpatient 2. Inpatient, [facility], Admin., Jm Fairchild MD Requesting Provider: Medicines: Monitored Anesthesia Care Complications: No immediate complications. Procedure: Pre-Anesthesia Assessment: - The heart rate, respiratory rate, oxygen saturations, blood pressure, adequacy of pulmonary ventilation, and response to care were monitored throughout the procedure. The Colonoscope was introduced through the anus and advanced to the terminal ileum, with identification of the appendiceal orifice and IC valve. The colonoscopy was technically difficult and complex due to unsatisfactory bowel prep. Successful completion of the procedure was aided by lavage. The patient tolerated the procedure well. The quality of the bowel preparation was fair. Findings: The perianal and digital rectal examinations were normal. Four semi-sessile polyps were found in the ascending colon. The polyps were 12 to 15 mm in size. These polyps were removed with a hot snare. Resection and retrieval were complete. To prevent bleeding after the polypectomy, four hemostatic clips were successfully placed. Three semi-sessile polyps were found in the transverse colon. The polyps were 7 to 10 mm in size. These polyps were removed with a hot snare. Resection and retrieval were complete. To prevent bleeding after the polypectomy, three hemostatic clips were successfully placed. Three semi-sessile polyps were found in the descending colon and splenic flexure. The polyps were 7 to 10 mm in size. These polyps were removed with a hot snare. Resection and retrieval were complete. To prevent bleeding after the polypectomy, three hemostatic clips were successfully placed. A 20 mm polyp was found in the splenic flexure. The polyp was semi-pedunculated. An endoloop was maneuvered over the polyp stalk and closed at the mucosal attachment prior to removal in order to prevent bleeding. The polyp was removed with a hot snare. Resection and retrieval were complete. A 12 mm polyp was found in the sigmoid colon. The polyp was semi-sessile. The polyp was removed with a hot snare. Resection and retrieval were complete. To prevent bleeding after the polypectomy, one hemostatic clip was successfully placed. A 8 mm polyp was found in the rectum. The polyp was semi-pedunculated. The polyp was removed with a hot snare. Resection and retrieval were complete. To prevent bleeding after the polypectomy, one hemostatic clip was successfully placed. Patchy moderate mucosal changes were found in the sigmoid colon and in the descending colon. Biopsies were taken with a cold forceps for histology. Internal hemorrhoids were found during retroflexion. The hemorrhoids were medium-sized. The exam was otherwise normal throughout the examined colon. Impression: - Preparation of the colon was fair. - Four 12 to 15 mm polyps in the ascending colon, removed with a hot snare. Resected and retrieved. Clips were placed. - Three 7 to 10 mm polyps in the transverse colon, removed with a hot snare. Resected and retrieved. Clips were placed. - Three 7 to 10 mm polyps in the descending colon and at the splenic flexure, removed with a hot snare. Resected and retrieved. Clips were placed. - One 20 mm polyp at the splenic flexure, removed with a hot snare. Resected and retrieved. - One 12 mm polyp in the sigmoid colon, removed with a hot snare. Resected and retrieved. Clip was placed. - One 8 mm polyp in the rectum, removed with a hot snare. Resected and retrieved. Clip was placed. - Patchy moderate mucosal changes were found in the sigmoid colon and in the descending colon secondary to probable ischemic colitis. Biopsied. - Internal hemorrhoids. Recommendation: - Repeat colonoscopy in 1 year for surveillance after piecemeal polypectomy. Kolby Treviño MD Kolby TREVIÑO MD 09/02/2020 5:33:27 PM Electronically signed by Kolby TREVIÑO MD Number of Addenda: 0 Note Initiated On: 09/02/2020 3:43 PM Estimated Blood Loss: Estimated blood loss: none.
[2020-09-02] MEDS ORDERED: SENN1TAB41 PO (18:14)
[2020-09-02] MEDS ORDERED: FOLI1TAB11 PO (18:14)
[2020-09-02] MEDS ORDERED: MOM30SS2 PO (18:14)
[2020-09-02 18:25] VITALS: BP 162/72
--- NOTE | 2020-09-02 19:06 | DS.PDOC ---
Discharge Summary General Date of Admission Aug 31, 2020 at 22:38 Date of Discharge 09/02/20 Attending Physician: DAVID DRISCOLL MD Specialist/Consultants Involve: THONG TREVIÑO MD Specialist/Consultants Involve Jm Giraldo Discharge Summary PROCEDURES PERFORMED DURING STAY: EGD, Colonoscopy by Dr. Treviño on 09/02/20. 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 HISTORY OF PRESENT ILLNESS: This 75 yr old [place] had his first infusion of Venofer yesterday. This evening at around 7PM, after eating dinner,he developed left sided non-radiating 9/10 in severity relapsing and remitting abdominal pain that was followed by a syncopal episode that was witnessed by his . He was unconscious for about 5 min. Prior to loosing consciousness he admits to feeling dizzy, but denies having chest pain or f/c. His last BM was this morning; because of his poor vision is not sure if he has been having blood in his stools. Per , the patient vomited in the ER and heme occult was positive. Because his Hg had dropped from 9.5 in Dec to 7.7 today PRBCs have been ordered. The patient is DNR/DNI. HOSPITAL COURSE: #Acute blood loss anemia: Hg 7.4 on arrival. reports dark stools for 1.5 years. Has poor compliance with medical follow up. S/p 2 units pRBC. Hgb stable at 9.1.. No gross blood identified on BM, rectal exam. Upper endoscopy and colonoscopy performed by Dr. Treviño. EGD revealed no abnormalities. No obvious source of bleeding. Total of 13 polyps identified and removed hot snare, largest measuring 20 mm in diameter. Patchy moderate mucosal changes were found in the sigmoid colon and in the descending colon secondary to probable ischemic colitis. This was biopsied. Possible infectious colitis. Per Dr. Treviño safe to DC home with follow-up. Will require repeat colonoscopy in one year. Avoid MRIs for 3 weeks. Pathology sample sent. #Syncope/Seizure: Suspect orthostatic hypotension/vasovagal cause of syncope. 2- D echo performed and reviewed with Dr. Portillo, normal EF, mild left ventricular hypertrophy, mild aortic insufficiency. No obvious evidence for cause of syn cope. Carotid ultrasound shows no occlusion. Patient has refused home safety eval by physical therapy. He is seen ambulating independently in his room and to the bathroom. His provides constant support at home. #L sided abdominal pain: resolved. Negative lipase, amylase. Liver enzymes wnl. #Lactic acidosis: resolved #Acute on Chronic Thrombocytopenia #Bradycardia with 1st degree AV block: HR normalized. TSH wnl. Trop wnl. #Seizure disorder: carbamazepine. serum level 10.9. within therapeutic range. #Constipation: takes PO iron. Stool softeners. #CKD IV: secondary to polycystic kidney disease. GFR at baseline. Outpatient follow up with nephrology #Hx of TIA/CVA: c/w statin. Resume ASA on DC. #Chronic HTN: home med clonidine, amlodipine, valsartan. Manual BP 160/80 on DC. #GERD: ppi DISCHARGE MEDICATIONS: Please see below. ALLERGIES: Please see below. PHYSICAL EXAMINATION ON DISCHARGE: VITAL SIGNS: Please see below. General: NAD, comfortable HEENT: PERRLA, EOMI, sclerae clear Neck: supple, normal ROM, no JVD Respiratory: lungs CTAB, no wheeze, no rales, no crackles CVS: RRR, normal S1, S2, no murmurs Abdo: soft, no masses, no hepatosplenomegaly, BS+, no rebound tenderness. Rectal exam showed a small non bleeding external hemorrhoid. Internal hemorrhoids appreciated, no gross blood seen. Extremities: no edema, pulses 2+ MSK: no joint deformities, normal ROM Neuro: no focal neuro deficits, moving all 4 extremities, CN2-12 intact. Strength 5/5 in all 4 extremities. No nystagmus. Psych: calm, cooperative, AAO x 3 LABORATORY DATA: Please see below. IMAGING: CT abo pelvis wo contrast (08/31/20) FINDINGS: Lungs: No suspicious mass or airspace process in the visualized lung bases. Heart: Small pericardial effusion is present. Mediastinal space: Small hiatal hernia is present. Liver: Multiple hepatic cysts with similar appearance compared to the previous exam. Gallbladder and bile ducts: Gallbladder is present and shows no evidence of gallstone. Pancreas: Noncontrast pancreas shows no obvious mass or adjacent fluid. Spleen: Noncontrast spleen shows no obvious focal deformity. Adrenals: Adrenal glands are normal in appearance. Kidneys and ureters: Polycystic kidneys. Nonobstructive renal calculi. No hydronephrosis or ureter stone. Stomach and bowel: No evidence of small bowel obstruction. Large volume of stool is seen throughout the colon. Appendix: Normal caliber appendix is identified, with no adjacent inflammation. Intraperitoneal space: No pneumoperitoneum. Vasculature: No aortic aneurysm. Lymph nodes: No enlarged lymph nodes. Urinary bladder: Urinary bladder appears normal. Reproductive: No overt enlargement of the prostate gland. Bones/joints: Bony structures are normal except for lumbar spine degenerative disc changes. Soft tissues: No concerning focal abnormality of the extra-abdominal and pelvic soft tissues. Other findings: Limited evaluation without enteric or IV contrast. Decreased attenuation of cardiac blood pool relative to the intraventricular septum suggests anemia. IMPRESSION: 1. Nonobstructive bilateral renal calculi in a patient with underlying polycystic kidney disease. No hydronephrosis, ureter stone or change in appearance of the kidneys. 2. Multiple hepatic cysts, with similar pattern appearance compared to the prior CT. CXR (08/31/20) Lungs: Degree of lung inflation is normal. No evidence of pulmonary edema. No focal consolidation or parenchymal lung mass. Pleural space: No pleural effusion or pneumothorax. Heart/Mediastinum: Cardiac silhouette appears normal. No adenopathy or hilar mass. Bones/joints: Osseous structures show no concerning abnormality. IMPRESSION: No acute or focal cardiopulmonary process. Carotid US (09/01/20) FINDINGS: Right common carotid artery: Atherosclerotic disease. No occlusion or stenosis. Waveforms are normal. Right internal carotid artery: Atherosclerotic disease. No occlusion or stenosis. Waveforms are normal. Right ICA/CCA ratio: Within normal limits. Right external carotid artery: Atherosclerotic disease. No stenosis in the origin. Right vertebral artery: Unremarkable. Antegrade flow. Left common carotid artery: Atherosclerotic disease. No occlusion or stenosis. Waveforms are normal. Left internal carotid artery: Atherosclerotic disease. No occlusion or stenosis. Waveforms are normal. Left ICA/CCA ratio: Within normal limits. Left external carotid artery: Atherosclerotic disease. No stenosis in the origin. Left vertebral artery: Unremarkable. Antegrade flow. IMPRESSION: No carotid arterial stenosis. PROGNOSIS: good ACTIVITY: As tolerated DIET: renal, cholesterol DISCHARGE PLAN: PCP, GI and nephro follow up. Repeat colonoscopy in 1 year. Avoid MRI for 3 weeks (polyp clips) DISPOSITION: home with family ( provides support) DISCHARGE INSTRUCTIONS: Follow-up with PCP in 3-5 days. Please repeat hemoglobin. Follow-up with gastroenterology in 1 month. Patient will require repeat colonoscopy in one year. Avoid MRI imaging for 3 weeks Please follow up with nuclear spectroscopist Dr. Fairchild in 2-3 weeks. If you develop lightheadedness, dizziness, loss of consciousness, seizure, blee ding from the rectum, vomiting blood, or otherwise worsening of his symptoms. Please call 911 or return to ER ITEMS TO FOLLOWUP ON ON OUTPATIENT: 1. Repeat CBC 2. Follow up with GI - 1 month. Will require repeat colonoscopy in 1 year. DISCHARGE CONDITION: [Stable]. TIME SPENT ON DISCHARGE: Greater than 30 minutes. Vital Signs/I&Os Vital Signs Date Time Temp Pulse Resp B/P (MAP) Pulse Ox O2 Delivery O2 Flow Rate FiO2 09/02/20 18:25 162/72 (102) 09/02/20 15:22 97.1 53 14 99 Room Air I&O- Last 24 Hours up to 6 AM 09/02/20 06:00 Intake Total 2740 ml Output Total 50 ml Balance 2690 ml Laboratory Data Labs 24H Laboratory Tests 2 09/02/20 11:54: Coronavirus (COVID-19)(PCR) NEGATIVE 09/02/20 12:06: Immature Granulocyte % (Auto) 0.4, Neutrophils (%) (Auto) 76.2H, Lymphocytes (%) (Auto) 12.2L, Monocytes (%) (Auto) 7.2H, Eosinophils (%) (Auto) 3.6H, Basophils (%) (Auto) 0.4, Neutrophils # (Auto) 3.6, Lymphocytes # (Auto) 0.6L, Monocytes # (Auto) 0.3, Eosinophils # (Auto) 0.2, Basophils # (Auto) 0.0, Nucleated Red Bl ood Cells % (auto) 0.0, Anion Gap 7L, Glomerular Filtration Rate 23.9L, Calcium Level 8.2L, Magnesium Level 2.6H, Total Bilirubin 0.2, Aspartate Amino Transf (AST/SGOT) 24, Alanine Aminotransferase (ALT/SGPT) 23, Alkaline Phosphatase 107, Total Protein 5.2L, Albumin 3.0L, Albumin/Globulin Ratio 1.4 CBC/BMP Laboratory Tests 09/01/20 19:17 09/02/20 01:17 09/02/20 12:06 Microbiology Microbiology 09/01/20 Respiratory Virus Panel (PCR) ([facility]) - Final, Complete 08/31/20 Blood Culture - Preliminary, Resulted No growth after 24 hours . All specim... 08/31/20 Blood Culture - Preliminary, Resulted No growth after 24 hours . All specim... Discharge Medications Scheduled Amlodipine Besylate (Amlodipine Besylate) 10 Mg Tab, 10 MG PO QHS, (Reported) Atorvastatin Calcium (Atorvastatin Calcium) 80 Mg Tab, 40 MG PO QHS, (Reported) Calcitriol (Rocaltrol) 0.5 Mcg Capsule, 1 MCG PO 5XW, (Reported) SATURDAY - SATURDAY Carbamazepine (Carbamazepine ER) 100 Mg Tab.er.12h, 200 MG PO DAILY, (Reported) Carbamazepine (Carbamazepine ER) 100 Mg Tab.er.12h, 300 MG PO QHS, (Reported) Cetirizine HCl (Cetirizine HCl) 10 Mg Tablet, 10 MG PO DAILY, (Reported) Ferrous Sulfate (Ferrous Sulfate) 324 Mg Tablet.dr, 324 MG PO DAILY, (Reported) Magnesium Gluconate (Magnesium Gluconate) 27 Mg Tablet, 500 MG PO BID, (Reported) Pantoprazole Sodium (Pantoprazole Sodium) 40 Mg Tab, 40 MG PO Q2D, (Reported) Sennosides/Docusate Sodium (Senna-S Tablet) 1 Each Tablet, 1 TAB PO BID Valsartan (Valsartan) 80 Mg Tablet, 80 MG PO DAILY, (Reported) Scheduled PRN Clonidine HCl (Clonidine HCl) 0.1 Mg Tablet, 0.1 MG PO Q6H PRN for ANXIETY, (Reported) Folic Acid (Folic Acid) 1 Mg Tab, 1 MG PO DAILY PRN for CONSTIPATION Magnesium Hydroxide (Milk of Magnesia) 400 Mg/5 Ml Oral.susp, 30 ML PO DAILY PRN for CONSTIPATION Sodium Chloride ([place]) 104 Ml [place], 1 SPRAY NA BID PRN for NASAL CONGESTION, (Reported) Allergies Coded Allergies: allopurinol (Verified Allergy, Unknown, 12/19/19) clopidogrel (Verified Allergy, Unknown, 12/19/19) sertraline (Verified Allergy, Unknown, 12/19/19) DAVID DRISCOLL MD Sep 02, 2020 19:06
--- NOTE | 2020-09-04 18:04 | ECHO ---
DATE OF PROCEDURE: 09/01/2020 Height: 185 cm Weight: 77 kg REFERRING PHYSICIAN: Dr. Jacob INDICATION: Syncope MEASUREMENTS: IVS 1.3 LV 4.7 LVPW 1.1 LA 4.4 Aorta 2.6 IVC 1.3. Mitral E wave velocity 65, A wave 86 E prime septal 6.4 E prime lateral 8.7 FINDINGS: This study is of good technical quality. The patient is in sinus rhythm. Normal LV size with normal LV systolic function, estimated left ventricular ejection fraction (LVEF) 60 to 65%. Mild left ventricular hypertrophy (LVH) is noted. Right ventricle also appears to be normal size and systolic function. Left atrium is mildly enlarged. Right atrium appears normal. Aortic valve is mildly sclerotic, but otherwise has preserved mobility. Mitral valve appears normal for the patient's age. Same applies for tricuspid valve. Limited views of pulmonic valve appear normal. No pericardial effusion is noted. Inferior vena cava is of normal size and appropriately collapses with inspiration indicative of normal central venous pressure. Aortic root is normal. Aortic arch and abdominal aorta were poorly visualized. Doppler interrogation of aortic valve reveals no stenosis and mild insufficiency. Mitral valve dysfunction is competent. There is trace tricuspid insufficiency. Calculated pulmonary artery pressure is slightly over 30 mmHg corresponding to mild pulmonary hypertension. Mitral inflow pattern and tissue Doppler imaging of mitral annulus reveal grade 1 diastolic dysfunction. CONCLUSIONS: 1. Study is of good technical quality. The patient is in sinus rhythm. 2. Normal LV size with left ventricular hypertrophy (LVH), normal LV systolic function and grade 1 diastolic dysfunction. 3. Aortic sclerosis with no stenosis and mild insufficiency. 4. Likely normal central venous pressure and mild or borderline hypertension. COMMENTS: No obvious findings to explain syncopal event. [facility]
== END 2020-09-02 19:15 | disposition home or self-care (01) | DRG 812 ==
LOC: M ED 19:49 → M ED INP 22:38 → ENRESERV 09-01 14:41 → M MSPAV 09-01 15:50
PROVIDERS: ADMIT Internal Medicine; ATTEND Family Medicine
PROC: 30233N1 Transfusion of Nonautologous Red Blood Cells into Peripheral Vein, Percutaneous Approach (ICD-10-PCS; principal; 2020-08-31)
PROC: 0DJ08ZZ Inspection of Upper Intestinal Tract, Via Natural or Artificial Opening Endoscopic (ICD-10-PCS; 2020-09-02)
PROC: 0DBL8ZX Excision of Transverse Colon, Via Natural or Artificial Opening Endoscopic, Diagnostic (ICD-10-PCS; 2020-09-02)
PROC: 0DBM8ZX Excision of Descending Colon, Via Natural or Artificial Opening Endoscopic, Diagnostic (ICD-10-PCS; 2020-09-02)
PROC: 0DBN8ZX Excision of Sigmoid Colon, Via Natural or Artificial Opening Endoscopic, Diagnostic (ICD-10-PCS; 2020-09-02)
PROC: 0DBP8ZX Excision of Rectum, Via Natural or Artificial Opening Endoscopic, Diagnostic (ICD-10-PCS; 2020-09-02)
PROC: 0W3P8ZZ Control Bleeding in Gastrointestinal Tract, Via Natural or Artificial Opening Endoscopic (ICD-10-PCS; 2020-09-02)
DX: D62 Acute posthemorrhagic anemia (principal); E87.2 Acidosis; Q61.3 Polycystic kidney, unspecified; N18.4 Chronic kidney disease, stage 4 (severe); N25.81 Secondary hyperparathyroidism of renal origin; I44.0 Atrioventricular block, first degree; K21.9 Gastro-esophageal reflux disease without esophagitis; I12.9 Hypertensive chronic kidney disease with stage 1 through stage 4 chronic kidney disease, or unspecified chronic kidney disease; D69.6 Thrombocytopenia, unspecified; G40.909 Epilepsy, unspecified, not intractable, without status epilepticus; K59.00 Constipation, unspecified; Z86.73 Personal history of transient ischemic attack (TIA), and cerebral infarction without residual deficits; F01.50 Vascular dementia, unspecified severity, without behavioral disturbance, psychotic disturbance, mood disturbance, and anxiety; Z66 Do not resuscitate; Z91.19 Patient's noncompliance with other medical treatment and regimen; Z79.899 Other long term (current) drug therapy; Z88.8 Allergy status to other drugs, medicaments and biological substances; E78.5 Hyperlipidemia, unspecified; I95.1 Orthostatic hypotension; K64.8 Other hemorrhoids; D12.3 Benign neoplasm of transverse colon; D12.4 Benign neoplasm of descending colon; D12.5 Benign neoplasm of sigmoid colon; K62.1 Rectal polyp

== ENCOUNTER 2020-09-06 04:23 | Observation (INO) | payer OTHER ==
[~2020-09-06] VITALS: Ht 182.9 cm; Wt 73.8 kg
[~2020-09-06 04:23] MED LIST changes: +CARB100T PO; +CETI10TA4 PO; +MAGN500T6 PO; +MOM30SS2 PO; +OCEA0.654; +PROC20004 INJ; +ROCA0.5C PO; +SENN1TAB41 PO; +VALS1TAB66 PO
[2020-09-06 05:15] LABS: BASO % 0.4 % (0.0-1.0); EOS # 0.1 10^3/uL (0.0-0.5); EOS % 1.2 % (0.0-3.0); HEMATOCRIT 29.8 % (42.0-52.0); HEMOGLOBIN 9.4 g/dl (13.5-17.5); LYMPH # 0.5 10^3/uL (1.5-5.0); LYMPH % 7.8 % (24.0-44.0); MEAN CORPUSCULAR HEMOGLOBIN 28.5 pg (27.0-33.0); MEAN CORPUSCULAR HGB CONC 31.5 g/dl (32.0-36.5); MEAN CORPUSCULAR VOLUME 90.3 fl (80.0-96.0); MONO # 0.3 10^3/uL (0.0-0.8); NEUTROPHILS # 5.8 10^3/uL (1.5-8.5); NEUTROPHILS % 84.7 % (36.0-66.0); PLATELET COUNT, AUTOMATED 127 10^3/uL (150-450); WHITE BLOOD COUNT 6.8 10^3/uL (4.0-10.0)
[2020-09-06 05:38] LABS: ALBUMIN 3.3 GM/DL (3.2-5.2); ALT/SGPT 34 U/L (12-78); BILIRUBIN,DIRECT < 0.1 MG/DL (0.0-0.2); BILIRUBIN,TOTAL 0.2 MG/DL (0.2-1.0); BLOOD UREA NITROGEN 27 MG/DL (7-18); CALCIUM LEVEL 7.9 MG/DL (8.8-10.2); CARBON DIOXIDE LEVEL 21 MEQ/L (21-32); CHLORIDE LEVEL 119 MEQ/L (98-107); CREATININE FOR GFR 2.95 MG/DL (0.70-1.30); GLOMERULAR FILTRATION RATE 22.3 (>42); GLUCOSE, FASTING 122 MG/DL (70-100); LIPASE 287 U/L (73-393); POTASSIUM SERUM 4.1 MEQ/L (3.5-5.1); SODIUM LEVEL 146 MEQ/L (136-145); TOTAL PROTEIN 5.6 GM/DL (6.4-8.2)
[2020-09-06] MEDS ORDERED: NS 1,000 ML IV ONE (05:45)
[2020-09-06] MEDS ORDERED: ACETAMINOPHEN TAB 650MG DOSE (2X325MG) PO ONE (05:45)
[2020-09-06] MEDS ORDERED: COMBIVENT RESPIMAT 100-20MCG INHALER 4GM INH ONE (05:45)
--- NOTE | 2020-09-06 06:08 | REPVR ---
PROCEDURE INFORMATION: Exam: XR Chest, 1 View Exam date and time: 09/06/2020 5:55 AM Age: 75 years old Clinical indication: Shortness of breath; Additional info: Short of breath TECHNIQUE: Imaging protocol: XR of the chest Views: 1 view. COMPARISON: CR Chest, 1 view 08/31/2020 9:04 PM FINDINGS: Lungs: Unremarkable. No consolidation. Pleural space: Unremarkable. No pleural effusion. No pneumothorax. Heart/Mediastinum: Unremarkable. No cardiomegaly. Bones/joints: Unremarkable. IMPRESSION: No focal lung consolidation. Electronically signed by: Gaurav Jessica On 09/06/2020 06:07:53 AM
--- NOTE | 2020-09-06 07:06 | REPVR ---
PROCEDURE INFORMATION: Exam: CT Abdomen And Pelvis Without Contrast Exam date and time: 09/06/2020 6:47 AM Age: 75 years old Clinical indication: Fever; Additional info: Fever of unknown origin TECHNIQUE: Imaging protocol: Computed tomography of the abdomen and pelvis without contrast. Radiation optimization: All CT scans at this facility use at least one of these dose optimization techniques: automated exposure control; mA and/or kV adjustment per patient size (includes targeted exams where dose is matched to clinical indication); or iterative reconstruction. COMPARISON: CT ABD PELVIS W/O CONTRAST 08/31/2020 8:45 PM FINDINGS: Mediastinal space: There is a small sliding hiatal hernia. Liver: There are numerous hepatic cysts the largest is in the left hepatic lobe measuring 4.4 cm. There is a 3.5 x 3.1 by 3.1 cm left hepatic lobe lesion measuring soft tissue density. Gallbladder and bile ducts: Normal. No calcified stones. No ductal dilation. Pancreas: Normal. No ductal dilation. Spleen: Normal. No splenomegaly. Adrenals: Normal. No mass. Kidneys and ureters: Bilateral polycystic kidney disease seen. Few of the cysts either demonstrates high density, mild mural calcification or circumferential mural calcifications, grossly unchanged since the prior exam. There is 1.3 cm left lower renal pole stone, unchanged since the prior exam. Stomach and bowel: Multiple linear hyperdense material possibly ingested foreign bodies are seen scattered in the colon. There is mild thickening of the descending colon with pericolonic stranding. Appendix: No evidence of appendicitis. Intraperitoneal space: Unremarkable. No free air. No significant fluid collection. Vasculature: Unremarkable. No abdominal aortic aneurysm. Lymph nodes: Unremarkable. No enlarged lymph nodes. Urinary bladder: Unremarkable as visualized. Reproductive: Unremarkable as visualized. Bones/joints: There is multilevel lumbar spine degenerative changes. Soft tissues: Unremarkable. IMPRESSION: 1. Polycystic liver and kidney disease with some complex renal cysts. Overall grossly unchanged since the prior exam. Additionally noted is a 3.5 x 3.1 x 3.1 cm left hepatic lobe soft tissue density lesion, unchanged since the prior exam could represent complex cyst due to internal proteinaceous material or blood products or soft tissue liver lesion. This can be further characterized with MRI and/or ultrasound. 2. Multiple likely ingested linear hyperdense foreign bodies scattered throughout the colon. 3. CT findings suggestive of descending colitis. 4. Small sliding hiatal hernia . Electronically signed by: Gaurav Jessica On 09/06/2020 07:06:07 AM
--- NOTE | 2020-09-06 07:13 | REPVR ---
PROCEDURE INFORMATION: Exam: CT Chest Without Contrast Exam date and time: 09/06/2020 6:47 AM Age: 75 years old Clinical indication: Fever; Additional info: Fever of unknown origin TECHNIQUE: Imaging protocol: Computed tomography of the chest without contrast. Radiation optimization: All CT scans at this facility use at least one of these dose optimization techniques: automated exposure control; mA and/or kV adjustment per patient size (includes targeted exams where dose is matched to clinical indication); or iterative reconstruction. COMPARISON: CR PORTABLE CHEST X-RAY 09/06/2020 5:26 AM FINDINGS: Thyroid: There is 9 mm left thyroid lobe hypodense nodule. No follow-up is deemed necessary. Lungs: See "Pleural space" finding. Pleural space: There is minimal symmetric biapical pleural thickening. There is 6 mm right lung base nodule seen on axial image 83. Heart: There is small pericardial effusion. Pulmonary arteries: The pulmonary trunk is dilated at 3.5 centimetres. Aorta: Unremarkable. No aortic aneurysm. Lymph nodes: Unremarkable. No enlarged lymph nodes. Bones/joints: Unremarkable. No acute fracture. Soft tissues: Unremarkable. IMPRESSION: 1. No focal lung consolidation or infiltrate. 2. Mildly dilated pulmonary trunk at 3.5 cm suggestive of an element of pulmonary hypertension. 3. 6 mm right lung base nodule. - For patients at low risk (minimal or absent history of smoking and of other known risk factors), recommend CT Chest at 6-12 months, then consider CT Chest at 18-24 months. - For patients at high risk (history of smoking or of other known risk factors), recommend CT Chest at 6-12 months, then CT Chest at 18-24 months. (Reference: Codie) COMMENTS: Consistent with the [employer]'s Incidental Findings Committee white paper (J Am Ermias Radiol 2015): In patients aged 35 years and older with an incidental thyroid nodule equal to or greater than 1.[address], MRI or extrathyroidal US, further evaluation with dedicated thyroid US is recommended for patients with normal life expectancy and without comorbidities. For smaller nodules without suspicious features, no further evaluation or follow up is recommended. REFERENCES: Codie Fajardo et al. Guidelines for Management of Incidental Pulmonary Nodules Detected on CT Images: From the Fle[employer] Society 2017. Radiology. 2017;284(1):228-243. Electronically signed by: Gaurav Jessica On 09/06/2020 07:13:09 AM
[2020-09-06] MEDS ORDERED: SENN1TAB41 PO (08:07)
[2020-09-06] MEDS ORDERED: FOLI1TAB11 PO (08:07)
[2020-09-06] MEDS ORDERED: HYDR10TAB PO (08:07)
[2020-09-06] MEDS ORDERED: carBAMazepine XR 100 MG TAB PO SCH ×2 (09:00→21:00)
[2020-09-06] MEDS ORDERED: HEPARIN SOD (PORCINE) 5000UNITS/ML 1ML VIAL/SYRINGE SC SCH (09:15)
[2020-09-06 10:12] VITALS: BP 152/78
[2020-09-06] MEDS ORDERED: ONDANSETRON 4MG/2ML VIAL IV PRN (13:00)
[2020-09-06] MEDS ORDERED: ALBUTEROL SULFATE 2.5 MG/0.5 ML INH NEB SOLN NEB PRN (13:00)
[2020-09-06] MEDS ORDERED: ACETAMINOPHEN 500 MG TAB PO PRN (13:00)
[2020-09-06] MEDS: FOLIC ACID 1 MG TAB PO SCH (13:28)
[2020-09-06] MEDS: **hydrALAZINE** 10 MG TAB PO SCH ×2 (13:29→21:01)
[2020-09-06 14:00] VITALS: BP 119/75
--- NOTE | 2020-09-06 19:19 | HPEPDOC ---
General Date of Admission Sep 06, 2020 at 09:01 Date of Service: Sep 06, 2020 Chief Complaint The patient is a 75-year-old male admitted with a reason for visit of Hypoxia. History of Present Illness This 75 yr old [place] with CKD stage 4 due to polycystic kidney disease, hypertension, multiple strokes and tias, vascular dementia, recent colonoscopy on 09/02 with 14 polyp removal has been having poor appetite since then and eating very light diet started vomiting from last night after dinner several times initially whatever he ate for dinner came out followed by dry heaving and saliva and mucoid material. He then started having SOB at around 9 pm with wheezing so EMS was called. EMS found the patient to be hypoxic to 84% in room air so was brought to ED. in ED he was febrile to 101.3, hypoxic and wheezing. He had a CT chest done negative for any pneumonia. CT abd and pelvis shwed desceding colitis and multiple colonic clips which were read as foreign bodies. He was admitted for possible aspiration pneumonitis. Home Medications Scheduled Amlodipine Besylate (Amlodipine Besylate) 10 Mg Tab, 10 MG PO QHS, (Reported) Atorvastatin Calcium (Atorvastatin Calcium) 80 Mg Tab, 40 MG PO QHS, (Reported) Calcitriol (Rocaltrol) 0.5 Mcg Capsule, 1 MCG PO 5XW, (Reported) SATURDAY - SATURDAY Carbamazepine (Carbamazepine ER) 100 Mg Tab.er.12h, 200 MG PO DAILY, (Reported) Carbamazepine (Carbamazepine ER) 100 Mg Tab.er.12h, 300 MG PO QHS, (Reported) Ferrous Sulfate (Ferrous Sulfate) 324 Mg Tablet.dr, 324 MG PO DAILY, (Reported) Folic Acid (Folic Acid) 1 Mg Tablet, 1 MG PO DAILY, (Reported) Hydralazine HCl (Hydralazine HCl) 10 Mg Tablet, 10 MG PO BID, (Reported) Magnesium Gluconate (Magnesium Gluconate) 27 Mg Tablet, 500 MG PO BID, (Reported) Pantoprazole Sodium (Pantoprazole Sodium) 40 Mg Tab, 40 MG PO Q2D, (Reported) Valsartan (Valsartan) 80 Mg Tablet, 80 MG PO DAILY, (Reported) Scheduled PRN Cetirizine HCl (Cetirizine HCl) 10 Mg Tablet, 10 MG PO DAILY PRN for ALLERGIES, (Reported) Clonidine HCl (Clonidine HCl) 0.1 Mg Tablet, 0.1 MG PO Q6H PRN for ANXIETY, (Reported) Sennosides/Docusate Sodium (Senna-S Tablet) 1 Each Tablet, 1 TAB PO BID PRN for CONSTIPATION, (Reported) Sodium Chloride ([place]) 104 Ml [place], 1 SPRAY NA BID PRN for NASAL CONGESTION, (Reported) Allergies Coded Allergies: allopurinol (Verified Allergy, Unknown, 12/19/19) clopidogrel (Verified Allergy, Unknown, 12/19/19) sertraline (Verified Allergy, Unknown, 12/19/19) Past Medical History Medical History Colonoscopy with 14 polyp piecemeal removal on 09/02/20 Ischemic Colitis as seen in colonoscopy on 09/02/20 CKD IV 2/2 Polycystic kidney disease (declined dialysis in the past) polycystic kidney and liver disease. Chronic Anemia Secondary hyperparathyroidism Multiple TIAs/CVAs w vascular dementia ( is his HPOA) Chronic Hypertension Seizure disorder Dyslipidemia GERD Hx of C.diff colitis H/o renal/ ureteric stone Iron deficiency anemia Depression Visual and hearing impairment Family History Significant Family History: Renal disease (Mother had Polycystic kidney dis and wa on dialysis.) Social History * Smoker: Denies Alcohol: Denies Drugs: denies A-FIB/CHADSVASC A-FIB History Current/History of A-Fib/PAF?: No Review of Systems Constitutional: Reports: Chills, Fever Eyes: Denies: Pain, Vision change ENT: Denies: Head Aches, Ear Pain, Dysphagia Skin: Denies: Rash, Lesions, Breakdown Pulmonary: Reports: Dyspnea Cardiovascular: Denies: Chest Pain, Palpitations, Orthopnea, Paroxysmal Noc. Dyspnea, Lt Headedness Gastrointestinal: Reports: Nausea, Vomiting Genitourinary: Denies: Dysuria, Frequency, Incontinence, Retention Musculoskeletal: Denies: Neck Pain, Back Pain, Joint Pain, Muscle Pain, Spasms Neurological: Denies: Weakness, Numbness, Change in speech, Confusion Physical Examination General Exam: Positive: Alert, Cooperative, No Acute Distress Eye Exam: Positive: PERRLA, Conjunctiva & lids normal, EOMI; Negative: Sclera icteric ENT Exam: Positive: Atraumatic, Mucous membr. moist/pink, Pharynx Normal Neck Exam: Positive: Supple; Negative: JVD, thyromegaly Chest Exam: Positive: Clear to auscultation, Normal air movement Heart Exam: Positive: Rate Normal, Regular Rhythm, Normal S1, Normal S2; Negative: Murmurs, Rubs Abdomen Exam: Positive: BS Hyperactive, Soft; Negative: Tenderness, Hepatospenomegaly Extremity Exam: Negative: Clubbing, Cyanosis, Edema Skin Exam: Positive: Nl turgor and temperature; Negative: Breakdown, Lesion Vital Signs Vital Signs Date Time Temp Pulse Resp B/P (MAP) Pulse Ox O2 Delivery O2 Flow Rate FiO2 09/06/20 14:00 98.1 63 16 119/75 (90) 99 Nasal Cannula 1.0 09/06/20 05:12 100 Laboratory Data Labs 24H Laboratory Tests 2 09/06/20 05:00: Immature Granulocyte % (Auto) 0.9, Neutrophils (%) (Auto) 84.7H, Lymphocytes (%) (Auto) 7.8L, Monocytes (%) (Auto) 5.0, Eosinophils (%) (Auto) 1.2, Basophils (%) (Auto) 0.4, Neutrophils # (Auto) 5.8, Lymphocytes # (Auto) 0.5L, Monocytes # (Auto) 0.3, Eosinophils # (Auto) 0.1, Basophils # (Auto) 0.0, Nucleated Red Blood Cells % (auto) 0.0, Anion Gap 6L, Glomerular Filtration Rate 22.3L, Lactic Acid Level 0.9, Calcium Level 7.9L, Total Bilirubin 0.2, Direct Bilirubin < 0.1, Aspartate Amino Transf (AST/SGOT) 35, Alanine Aminotransferase (ALT/SGPT) 34, Alkaline Phosphatase 111, Total Protein 5.6L, Albumin 3.3, Albumin/Globulin Ratio 1.4, Lipase 287 CBC/BMP Laboratory Tests 09/06/20 05:00 Microbiology Microbiology 09/06/20 Respiratory Virus Panel (PCR) (ABEL) - Final, Complete 09/06/20 Blood Culture, Received Pending 09/06/20 Blood Culture, Received Pending Assessment/Plan This 75 yr old [place] with CKD stage 4 due to polycystic kidney disease, hypertension, multiple strokes and tias, vascular dementia, recent colonoscopy on 09/02 with 14 polyp removal has been having poor appetite since then and eating very light diet started vomiting from last night after dinner several times initially whatever he ate for dinner came out followed by dry heaving and saliva and mucoid material. He then started having SOB at around 9 pm with wheezing so EMS was called. EMS found the patient to be hypoxic to 84% in room air so was brought to ED. in ED he was febrile to 101.3, hypoxic and wheezing. He had a CT chest done negative for any pneumonia. CT abd and pelvis shwed desceding colitis and multiple colonic clips which were read as foreign bodies. He was admitted for possible aspiration pneumonitis. Acute respiratory failure with hypoxia possibly due to aspiration pneumonitis albuterol prn, Augmentin CT chest no pneumonia seen. Descending colon colitis as per bx in colonoscopy this is ischemic colitis. No specific treatment as per Dr Treviño. Could give empiric antibiotics. patient getting Augmentin for resp issues Zofran Hypertension continue home meds with hold parameters CKD stage 4 stable Chronic anemia HH stable HLD stain Seizure disorder on tegretal Multiple strokes in the past with multi infarct dementia gets clonidine prn anxiety will hold as BP lower side. seroquel prn insomnia/ sundowning/anxiety Plan / VTE VTE Prophylaxis Ordered?: Yes MIREYA ONEILL MD Sep 06, 2020 18:34
[2020-09-06] MEDS ORDERED: QUEtiapine FUMARATE 25 MG TAB PO PRN (19:30)
[2020-09-06] MEDS: DOCUSATE SODIUM 100 MG CAP PO SCH (20:59)
[2020-09-06] MEDS: carBAMazepine XR 100 MG TAB PO SCH (20:59)
[2020-09-06] MEDS: AUGMENTIN 875 MG TAB PO SCH (20:59)
[2020-09-06] MEDS: HEPARIN SOD (PORCINE) 5000UNITS/ML 1ML VIAL/SYRINGE SC SCH ×2 (21:00→21:01)
[2020-09-06] MEDS ORDERED: amLODIPine 10 MG TAB PO SCH (21:00)
[2020-09-06] MEDS ORDERED: PANTOPRAZOLE 40MG VIAL (C9113 PER 1) IV SCH (21:00)
[2020-09-06] MEDS ORDERED: ATORVASTATIN 20 MG TAB PO SCH (21:00)
[2020-09-06 22:00] VITALS: BP 165/75
[2020-09-07 00:11] VITALS: BP 137/66
[2020-09-07 06:00] VITALS: BP 154/65
[2020-09-07 06:41] LABS: BASO % 0.9 % (0.0-1.0); EOS # 0.1 10^3/uL (0.0-0.5); HEMATOCRIT 27.7 % (42.0-52.0); HEMOGLOBIN 8.7 g/dl (13.5-17.5); LYMPH # 0.9 10^3/uL (1.5-5.0); LYMPH % 20.3 % (24.0-44.0); MEAN CORPUSCULAR HEMOGLOBIN 28.7 pg (27.0-33.0); MEAN CORPUSCULAR HGB CONC 31.4 g/dl (32.0-36.5); MEAN CORPUSCULAR VOLUME 91.4 fl (80.0-96.0); MONO # 0.4 10^3/uL (0.0-0.8); MONO % 8.3 % (0.0-5.0); NEUTROPHILS # 3.1 10^3/uL (1.5-8.5); NEUTROPHILS % 67.8 % (36.0-66.0); RED BLOOD COUNT 3.03 10^6/uL (4.30-6.10); WHITE BLOOD COUNT 4.6 10^3/uL (4.0-10.0)
[2020-09-07 06:48] LABS: PLATELET COUNT, AUTOMATED 97 10^3/uL (150-450)
[2020-09-07 07:00] LABS: BLOOD UREA NITROGEN 26 MG/DL (7-18); CALCIUM LEVEL 7.9 MG/DL (8.8-10.2); CARBON DIOXIDE LEVEL 21 MEQ/L (21-32); CHLORIDE LEVEL 116 MEQ/L (98-107); CREATININE FOR GFR 2.76 MG/DL (0.70-1.30); GLUCOSE, FASTING 113 MG/DL (70-100); POTASSIUM SERUM 3.8 MEQ/L (3.5-5.1); SODIUM LEVEL 144 MEQ/L (136-145)
--- NOTE | 2020-09-07 08:23 | ECGEPIP ---
[facility] - ED Test Date: 2020-09-06 Pat Name: SYLVIA LINCOLN Department: Room: - Gender: Male [employer] Driver: joelle : 1945 Requested By: SUSAN Aguilar Order Number: [id number] Reading MD: Judy Antunez Measurements Intervals [place] Rate: 83 P: 60 SC: 206 QRS: 27 QRSD: 75 T: 60 QT: 319 QTc: 377 Interpretive Statements SINUS RHYTHM MINIMAL ST DEPRESSION INCREASED RATE 08/31/20 Electronically Signed on 09-07-2020 8:23:26 EDT by Judy Antunez
[2020-09-07] MEDS: AUGMENTIN 875 MG TAB PO SCH (08:54)
[2020-09-07] MEDS: DOCUSATE SODIUM 100 MG CAP PO SCH (08:54)
[2020-09-07 08:55] VITALS: BP 143/76
[2020-09-07] MEDS: FOLIC ACID 1 MG TAB PO SCH (08:55)
[2020-09-07] MEDS: **hydrALAZINE** 10 MG TAB PO SCH (08:56)
[2020-09-07] MEDS: HEPARIN SOD (PORCINE) 5000UNITS/ML 1ML VIAL/SYRINGE SC SCH (08:56)
[2020-09-07] MEDS ORDERED: VALSARTAN 80 MG TAB (DIOVAN) PO SCH (09:00)
[2020-09-07] MEDS: carBAMazepine XR 100 MG TAB PO SCH (09:37)
[2020-09-07 11:18] LABS: FERRITIN 860 NG/ML (26-388); FOLATE > 24.0 NG/ML (>5.4); IRON (FE) 141 UG/DL (65-175); PERCENT SATURATION 78.8 % (19.7-50.0); TOTAL IRON BINDING CAPACITY 179 UG/DL (250-450); VITAMIN B12 LEVEL 371 PG/ML (247-911)
[2020-09-07] MEDS ORDERED: AUGM500T34 PO (11:49)
[2020-09-07 14:00] VITALS: BP 143/75
--- NOTE | 2020-09-07 23:50 | DS.PDOC ---
Discharge Summary General Date of Admission Sep 06, 2020 at 09:01 Date of Discharge 09/07/20 Discharge Summary PROCEDURES PERFORMED DURING STAY: [None]. DISCHARGE DIAGNOSES: Aspiration Pneumonitis Acute respiratory failure with hypoxia resolved Descending colon colitis possibly ischemic colitis as in biopsy Thrombocytopenia Chronic anemia with Hb between 8.0 to 9.0 SECONDARY DIAGNOSIS: Colonoscopy with 14 polyp piecemeal removal on 09/02/20 Ischemic Colitis as seen in biopsy on 09/02/20 CKD IV 2/2 Polycystic kidney disease (declined dialysis in the past) Polycystic kidney and liver disease. Iron deficiency anemia on venofer. Secondary hyperparathyroidism Multiple TIAs/CVAs w vascular dementia ( is his HPOA) Chronic Hypertension Seizure disorder Dyslipidemia GERD Hx of C.diff colitis H/o renal/ ureteric stone Depression Visual and hearing impairment COMPLICATIONS/CHIEF COMPLAINT: Hypoxia. HOSPITAL COURSE: This 75 yr old [place] with CKD stage 4 due to polycystic kidney disease, hypertension, multiple strokes and tias, vascular dementia, recent colonoscopy on 09/02 with 14 polyp removal has been having poor appetite since then and eating very light diet started vomiting from last night after dinner several times initially whatever he ate for dinner came out followed by dry heaving and saliva and mucoid material. He then started having SOB at around 9 pm with wheezing so EMS was called. EMS found the patient to be hypoxic to 84% in room air so was brought to ED. in ED he was febrile to 101.3, hypoxic and wheezing. He had a CT chest done negative for any pneumonia. CT abd and pelvis shwed desceding colitis and multiple colonic clips which were read as ingested bodies. He was admitted for aspiration pneumonitis. Acute respiratory failure with hypoxia possibly due to aspiration pneumonitis albuterol prn, Augmentin CT chest no pneumonia seen. Vomiting possibly due to gastritis improved Descending colon colitis as per bx in colonoscopy this is ischemic colitis. No specific treatment as per Dr Treviño. Could give empiric antibiotics. patient getting Augmentin for resp issues Zofran Hypertension continue home meds with hold parameters CKD stage 4 stable Chronic anemia HH stable HLD stain Seizure disorder on tegretal Multiple strokes in the past with multi infarct dementia gets clonidine prn anxiety DISCHARGE MEDICATIONS: Please see below. ALLERGIES: Please see below. PHYSICAL EXAMINATION ON DISCHARGE: VITAL SIGNS: Please see below. General Exam: Positive: Alert, Cooperative, No Acute Distress Eye Exam: Positive: PERRLA, Conjunctiva & lids normal, EOMI; Negative: Sclera icteric ENT Exam: Positive: Atraumatic, Mucous membr. moist/pink, Pharynx Normal Neck Exam: Positive: Supple; Negative: JVD, thyromegaly Chest Exam: Positive: Clear to auscultation, Normal air movement Heart Exam: Positive: Rate Normal, Regular Rhythm, Normal S1, Normal S2; Negative: Murmurs, Rubs Abdomen Exam: Positive: BS Hyperactive, Soft; Negative: Tenderness, Hepatospenomegaly Extremity Exam: Negative: Clubbing, Cyanosis, Edema Skin Exam: Positive: Nl turgor and temperature; Negative: Breakdown, Lesion LABORATORY DATA: Please see below. ACTIVITY: [As tolerated]. DIET: As tolerated DISPOSITION: 01 Home, Self-Care. DISCHARGE INSTRUCTIONS: PMD in 1 week Renal in 2 weeks DISCHARGE CONDITION: [Stable]. TIME SPENT ON DISCHARGE: 35 minutes. Vital Signs/I&Os Vital Signs Date Time Temp Pulse Resp B/P (MAP) Pulse Ox O2 Delivery O2 Flow Rate FiO2 09/07/20 14:00 99.0 69 20 143/75 (97) 98 09/07/20 06:00 Nasal Cannula 1.0 09/06/20 05:12 100 I&O- Last 24 Hours up to 6 AM 09/07/20 07:00 Intake Total 2160 ml Output Total 0 ml Balance 2160 ml Laboratory Data Labs 24H Laboratory Tests 2 09/07/20 05:50: Immature Granulocyte % (Auto) 0.7, Neutrophils (%) (Auto) 67.8H, Lymphocytes (%) (Auto) 20.3L, Monocytes (%) (Auto) 8.3H, Eosinophils (%) (Auto) 2.0, Basophils (%) (Auto) 0.9, Neutrophils # (Auto) 3.1, Lymphocytes # (Auto) 0.9L, Monocytes # (Auto) 0.4, Eosinophils # (Auto) 0.1, Basophils # (Auto) 0.0, Nucleated Red Blood Cells % (auto) 0.0, Immature Platelet Fraction 2.7, Anion Gap 7L, Glomerular Filtration Rate 24.0L, Calcium Level 7.9L, Iron Level 141, Total Iron Binding Capacity 179L, Transferrin % Saturation 78.8H, Ferritin 860H, Vitamin B12 Level 371, Folate > 24.0 CBC/BMP Laboratory Tests 09/07/20 05:50 Microbiology Microbiology 09/06/20 Respiratory Virus Panel (PCR) (ABEL) - Final, Complete 09/06/20 Blood Culture - Preliminary, Resulted No growth after 24 hours . All specim... 09/06/20 Blood Culture - Preliminary, Resulted No growth after 24 hours . All specim... Discharge Medications Scheduled Amlodipine Besylate (Amlodipine Besylate) 10 Mg Tab, 10 MG PO QHS, (Reported) Amoxicillin/Potassium Clav (Augmentin 500-125 Tablet) 1 Each Tablet, 1 TAB PO BID Atorvastatin Calcium (Atorvastatin Calcium) 80 Mg Tab, 40 MG PO QHS, (Reported) Calcitriol (Rocaltrol) 0.5 Mcg Capsule, 1 MCG PO 5XW, (Reported) SATURDAY - SATURDAY Carbamazepine (Carbamazepine ER) 100 Mg Tab.er.12h, 200 MG PO DAILY, (Reported) Carbamazepine (Carbamazepine ER) 100 Mg Tab.er.12h, 300 MG PO QHS, (Reported) Ferrous Sulfate (Ferrous Sulfate) 324 Mg Tablet.dr, 324 MG PO DAILY, (Reported) Folic Acid (Folic Acid) 1 Mg Tablet, 1 MG PO DAILY, (Reported) Hydralazine HCl (Hydralazine HCl) 10 Mg Tablet, 10 MG PO BID, (Reported) Magnesium Gluconate (Magnesium Gluconate) 27 Mg Tablet, 500 MG PO BID, (Reported) Pantoprazole Sodium (Pantoprazole Sodium) 40 Mg Tab, 40 MG PO Q2D, (Reported) Valsartan (Valsartan) 80 Mg Tablet, 80 MG PO DAILY, (Reported) Scheduled PRN Cetirizine HCl (Cetirizine HCl) 10 Mg Tablet, 10 MG PO DAILY PRN for ALLERGIES, (Reported) Clonidine HCl (Clonidine HCl) 0.1 Mg Tablet, 0.1 MG PO Q6H PRN for ANXIETY, (Reported) Sennosides/Docusate Sodium (Senna-S Tablet) 1 Each Tablet, 1 TAB PO BID PRN for CONSTIPATION, (Reported) Sodium Chloride ([place]) 104 Ml [place], 1 SPRAY NA BID PRN for NASAL CONGESTION, (Reported) Allergies Coded Allergies: allopurinol (Verified Allergy, Unknown, 12/19/19) clopidogrel (Verified Allergy, Unknown, 12/19/19) sertraline (Verified Allergy, Unknown, 12/19/19) MIREYA ONEILL MD Sep 07, 2020:49
== END 2020-09-07 14:24 | disposition home or self-care (01) ==
LOC: M ED 04:23 → M ED INP 09:01 → ENRESERV 09:20 → M MSPAV 10:15
PROVIDERS: ADMIT Internal Medicine Nephrology; ATTEND Internal Medicine Nephrology
DX: J69.0 Pneumonitis due to inhalation of food and vomit (principal); J96.01 Acute respiratory failure with hypoxia; K52.9 Noninfective gastroenteritis and colitis, unspecified; D69.6 Thrombocytopenia, unspecified; N18.4 Chronic kidney disease, stage 4 (severe); Q61.3 Polycystic kidney, unspecified; Q44.6 Cystic disease of liver; D50.9 Iron deficiency anemia, unspecified; E21.1 Secondary hyperparathyroidism, not elsewhere classified; Z86.73 Personal history of transient ischemic attack (TIA), and cerebral infarction without residual deficits; I12.9 Hypertensive chronic kidney disease with stage 1 through stage 4 chronic kidney disease, or unspecified chronic kidney disease; G40.909 Epilepsy, unspecified, not intractable, without status epilepticus; E78.5 Hyperlipidemia, unspecified; K21.9 Gastro-esophageal reflux disease without esophagitis; F32.9 Major depressive disorder, single episode, unspecified; H54.7 Unspecified visual loss; H90.5 Unspecified sensorineural hearing loss; F01.50 Vascular dementia, unspecified severity, without behavioral disturbance, psychotic disturbance, mood disturbance, and anxiety; Z79.899 Other long term (current) drug therapy; Z88.8 Allergy status to other drugs, medicaments and biological substances
CPT/HCPCS: 36415; 71045; 71250; 74176; 80048; 80076; 82607; 82728; 82746; 83550; 83605; 83690; 85025; 85049; 85055; 87040; 87486; 87581; 87633; 87798; 93005; 93041; 94640; 96361; 96374; 99285; C9113; G0378

== ENCOUNTER → 2020-09-13 | Outpatient (REF) | payer OTHER ==
[~2020-09-13] MED LIST changes: +AUGM500T34 PO; +HYDR10TAB PO
[2020-09-14 18:15] LABS: PERCENT SATURATION 80.5 % (19.7-50.0)
== END ==
LOC: M LAB REF 17:09
PROVIDERS: ATTEND Nurse Practitioner Family
DX: D50.9 Iron deficiency anemia, unspecified (principal)

== ENCOUNTER → 2020-10-17 | Outpatient (REF) | payer OTHER ==
[2020-10-17 18:06] LABS: CARBAMAZEPINE (TEGRETOL) LEVEL 9.6 UG/ML (4.0-10.0); URIC ACID 9.7 MG/DL (3.5-7.2)
== END ==
LOC: M LAB REF 16:49
PROVIDERS: ATTEND Nurse Practitioner Family
DX: M1A.30X0 Chronic gout due to renal impairment, unspecified site, without tophus (tophi) (principal); Z79.899 Other long term (current) drug therapy

== ENCOUNTER → 2021-07-07 | Outpatient (REF) | payer OTHER ==
[~2021-07-07] MED LIST changes: -CITA40TA4 PO; +CITA40TA7 PO
[2021-07-07 17:35] LABS: CARBAMAZEPINE (TEGRETOL) LEVEL 12.7 UG/ML (4.0-10.0); MAGNESIUM LEVEL 2.3 MG/DL (1.8-2.4)
[2021-07-10 09:14] LABS: ALBUMIN 3.6 GM/DL (3.2-5.2); ALT/SGPT 21 U/L (12-78); BILIRUBIN,DIRECT < 0.1 MG/DL (0.0-0.2); BILIRUBIN,TOTAL 0.3 MG/DL (0.2-1.0); TOTAL PROTEIN 5.9 GM/DL (6.4-8.2)
== END ==
LOC: M LAB REF 16:45
PROVIDERS: ATTEND Nurse Practitioner Family
DX: Z79.899 Other long term (current) drug therapy (principal); E83.42 Hypomagnesemia; N18.4 Chronic kidney disease, stage 4 (severe); Z51.81 Encounter for therapeutic drug level monitoring

== ENCOUNTER → 2021-10-12 | Outpatient (REF) | payer OTHER ==
[~2021-10-12] MED LIST changes: +CITA40TA4 PO; -CITA40TA7 PO
== END ==
LOC: M LAB REF 17:22
PROVIDERS: ATTEND Nurse Practitioner Family
DX: G40.89 Other seizures (principal); Z79.899 Other long term (current) drug therapy

== ENCOUNTER → 2022-10-02 | Outpatient (REF) | payer OTHER ==
[~2022-10-02] MED LIST changes: -CITA40TA4 PO; +CITA40TA7 PO
[2022-10-02 19:17] LABS: PERCENT SATURATION 60.5 % (19.7-50.0)
== END ==
LOC: M LAB REF 17:25
PROVIDERS: ATTEND Nurse Practitioner Family
DX: D50.9 Iron deficiency anemia, unspecified (principal)

== ENCOUNTER 2022-10-24 16:55 | Observation (INO) | payer OTHER ==
[~2022-10-24] VITALS: Ht 185.4 cm; Wt 74.1 kg
[2022-10-24] MEDS ORDERED: ONDANSETRON 4MG 2ML VIAL IV ONE (18:00)
[2022-10-24 18:45] LABS: BASO # 0.1 10^3/uL (0.0-0.2); EOS # 0.1 10^3/uL (0.0-0.5); EOS % 2.1 % (0.0-3.0); HEMATOCRIT 30.8 % (42.0-52.0); HEMOGLOBIN 9.8 g/dl (13.5-17.5); LYMPH # 0.9 10^3/uL (1.5-5.0); LYMPH % 16.3 % (24.0-44.0); MEAN CORPUSCULAR HGB CONC 31.8 g/dl (32.0-36.5); MEAN CORPUSCULAR VOLUME 97.5 fl (80.0-96.0); MONO # 0.3 10^3/uL (0.0-0.8); MONO % 6.5 % (2.0-8.0); NEUTROPHILS # 3.9 10^3/uL (1.5-8.5); NEUTROPHILS % 73.7 % (36.0-66.0); PLATELET COUNT, AUTOMATED 177 10^3/uL (150-450); RED BLOOD COUNT 3.16 10^6/uL (4.30-6.10); WHITE BLOOD COUNT 5.2 10^3/uL (4.0-10.0)
[2022-10-24 19:23] LABS: ALBUMIN 3.7 G/DL (3.2-5.2); BILIRUBIN,DIRECT 0.1 MG/DL (<0.4); BILIRUBIN,TOTAL 0.3 MG/DL (0.3-1.2); CALCIUM LEVEL 8.7 MG/DL (8.3-10.6); CREATININE FOR GFR 3.95 MG/DL (0.70-1.30); GLOMERULAR FILTRATION RATE 15.8 (>42); POTASSIUM SERUM 4.6 MMOL/L (3.5-5.1); THYROID STIMULATING HORMONE 0.893 uIU/ML (0.55-4.78); TOTAL PROTEIN 6.2 G/DL (5.7-8.2)
[2022-10-24] MEDS ORDERED: NS 1,000 ML IV SCH (20:35)
[2022-10-24] MEDS ORDERED: ONDANSETRON 4MG 2ML VIAL IV PRN (21:10)
[2022-10-24] MEDS: LR 1,000 ML IV SCH (21:41)
[2022-10-24 21:49] LABS: APPEARANCE, URINE MANUAL CLEAR (CLEAR); COLOR, URINE MANUAL YELLOW (YELLOW)
[2022-10-24 21:50] LABS: BILIRUBIN, URINE MANUAL NEGATIVE (NEGATIVE); BLOOD URINE MANUAL NEGATIVE (NEGATIVE); GLUCOSE, URINE (UA) MANUAL NEGATIVE (NEGATIVE); KETONE, URINE MANUAL 1+ mg/dL (NEGATIVE); LEUKOCYTE ESTERASE, URINE MAN NEGATIVE (NEGATIVE); NITRITE, URINE MANUAL NEGATIVE (NEGATIVE); PROTEIN, URINE MANUAL TRACE mg/dL (NEGATIVE); SPECIFIC GRAVITY,URINE MANUAL 1.015 (1.002-1.035); UROBILINOGEN, URINE MANUAL NORMAL (NORMAL)
[2022-10-24 21:59] LABS: RBC, URINE 0-1 /hpf (0-3)
[2022-10-24 22:00] LABS: BACTERIA, URINE NONE SEEN; HYALINE CAST, URINE NONE SEEN /lpf (0-1); SQUAMOUS EPITHELIAL CELL URINE NONE SEEN /hpf (SMALL AMT)
[2022-10-24 22:18] LABS: CREATININE,RANDOM URINE 92.8 MG/DL; SODIUM,RANDOM URINE 60 MMOL/L; TOTAL PROTEIN,RANDOM URINE 33.6 MG/DL (0.0-14.0)
[2022-10-24 22:43] LABS: OSMOLALITY URINE 404 MOSM/KG (50-1400)
[2022-10-24 22:43] LABS: RSV AMPLIFICATION NEGATIVE (NEGATIVE)
[2022-10-25] MEDS ORDERED: LACT20EL PO (00:16)
[2022-10-25] MEDS ORDERED: ALLO100T PO (00:16)
[2022-10-25 00:20] VITALS: BP 182/70
[2022-10-25] MEDS ORDERED: HOME MED LIST COMPLETE! XX SCH (00:20)
[2022-10-25] MEDS ORDERED: VALSARTAN 80 MG TAB (DIOVAN) PO ONE (00:45)
[2022-10-25 00:50] VITALS: BP 162/70
[2022-10-25] MEDS ORDERED: carBAMazepine 200MG TABLET PO ONE (01:05)
[2022-10-25] MEDS ORDERED: carBAMazepine XR 100 MG TAB PO ONE (01:15)
[2022-10-25] MEDS: HEPARIN SOD (PORCINE) 5000UNITS/ML 1ML VIAL/SYRINGE SC SCH ×2 (05:05→14:00)
[2022-10-25 05:48] LABS: HEMATOCRIT 27.8 % (42.0-52.0); HEMOGLOBIN 8.8 g/dl (13.5-17.5); MEAN CORPUSCULAR HGB CONC 31.7 g/dl (32.0-36.5); MEAN CORPUSCULAR VOLUME 97.9 fl (80.0-96.0); PLATELET COUNT, AUTOMATED 153 10^3/uL (150-450); RED BLOOD COUNT 2.84 10^6/uL (4.30-6.10); WHITE BLOOD COUNT 4.8 10^3/uL (4.0-10.0)
[2022-10-25] MEDS: LR 1,000 ML IV SCH (05:59)
[2022-10-25 06:00] VITALS: BP 133/60
[2022-10-25 06:01] LABS: INR 1.09; PROTHROMBIN TIME 14.3 SECONDS (12.5-14.5)
[2022-10-25 06:02] LABS: PARTIAL THROMBOPLASTIN TIME 28.8 SECONDS (24.8-34.2)
[2022-10-25 06:39] LABS: CALCIUM LEVEL 8.3 MG/DL (8.3-10.6); CREATININE FOR GFR 3.85 MG/DL (0.70-1.30); GLOMERULAR FILTRATION RATE 16.3 (>42); MAGNESIUM LEVEL 1.9 MG/DL (1.8-2.4); POTASSIUM SERUM 4.4 MMOL/L (3.5-5.1)
[2022-10-25] MEDS ORDERED: carBAMazepine XR 100 MG TAB PO SCH ×2 (09:00→21:00)
[2022-10-25] MEDS ORDERED: PANTOPRAZOLE 40MG VIAL IV SCH (09:00)
[2022-10-25] MEDS ORDERED: **hydrALAZINE** 10 MG TAB PO SCH (09:00)
[2022-10-25] MEDS ORDERED: FOLIC ACID 1MG TAB PO SCH (09:00)
[2022-10-25] MEDS ORDERED: allopurinoL 100 MG TAB PO SCH (09:00)
[2022-10-25] MEDS ORDERED: VALSARTAN 80 MG TAB (DIOVAN) PO SCH (09:00)
[2022-10-25 09:36] VITALS: BP 133/60
[2022-10-25] MEDS ORDERED: LACTATED RINGER'S 1000 ML IV ONE (10:50)
[2022-10-25 13:23] LABS: CALCIUM LEVEL 8.4 MG/DL (8.3-10.6); CREATININE FOR GFR 3.58 MG/DL (0.70-1.30); GLOMERULAR FILTRATION RATE 17.7 (>42); POTASSIUM SERUM 4.4 MMOL/L (3.5-5.1)
[2022-10-25 14:00] VITALS: BP 144/71
== END 2022-10-25 17:48 | disposition home or self-care (01) ==
LOC: M ED 16:55 → EDBD 16:55 → M ED INP 16:56 → ENRESERV 23:27 → M MSPAV 10-25 00:18
PROVIDERS: ADMIT Family Medicine; ATTEND Family Medicine
DX: N17.9 Acute kidney failure, unspecified (principal); R13.12 Dysphagia, oropharyngeal phase; I12.9 Hypertensive chronic kidney disease with stage 1 through stage 4 chronic kidney disease, or unspecified chronic kidney disease; E78.5 Hyperlipidemia, unspecified; N18.4 Chronic kidney disease, stage 4 (severe); Z79.899 Other long term (current) drug therapy; Z88.8 Allergy status to other drugs, medicaments and biological substances; G40.909 Epilepsy, unspecified, not intractable, without status epilepticus; K55.9 Vascular disorder of intestine, unspecified; Q61.3 Polycystic kidney, unspecified
CPT/HCPCS: 36415; 70450; 71046; 74176; 80048; 80076; 81000; 81015; 82570; 83690; 83735; 83935; 84156; 84300; 84443; 84484; 85025; 85027; 85610; 85730; 87631; 93005; 93041; 94760; 96361; 96374; 96375; 99285; C9113; G0378; J2405

== ENCOUNTER 2023-10-31 16:03 | Observation (INO) | payer MEDICARE, OTHER ==
[~2023-10-31] VITALS: Ht 185.4 cm; Wt 70.3 kg
[~2023-10-31 16:03] MED LIST changes: +ALLO100T PO; +LACT20EL PO
[2023-10-31] MEDS ORDERED: ATOR40TA75 PO (16:53)
[2023-10-31] MEDS ORDERED: ECOT81TA5 PO (16:53)
[2023-10-31 17:17] LABS: BASO # 0.1 10^3/uL (0.0-0.2); BASO % 1.1 % (0.0-1.0); HEMATOCRIT 27.6 % (42.0-52.0); HEMOGLOBIN 8.8 g/dl (13.5-17.5); LYMPH # 0.6 10^3/uL (1.5-5.0); LYMPH % 13.7 % (24.0-44.0); MEAN CORPUSCULAR HEMOGLOBIN 31.3 pg (27.0-33.0); MEAN CORPUSCULAR HGB CONC 31.9 g/dl (32.0-36.5); MEAN CORPUSCULAR VOLUME 98.2 fl (80.0-96.0); MONO # 0.4 10^3/uL (0.0-0.8); MONO % 8.5 % (2.0-8.0); NEUTROPHILS # 3.3 10^3/uL (1.5-8.5); NEUTROPHILS % 76.5 % (36.0-66.0); PLATELET COUNT, AUTOMATED 130 10^3/uL (150-450); RED BLOOD COUNT 2.81 10^6/uL (4.30-6.10); WHITE BLOOD COUNT 4.4 10^3/uL (4.0-10.0)
[2023-10-31 17:38] LABS: CALCIUM LEVEL 7.7 MG/DL (8.3-10.6); CREATININE FOR GFR 3.4 MG/DL (0.70-1.30); GLOMERULAR FILTRATION RATE 18.7 (>42); MAGNESIUM LEVEL 1.9 MG/DL (1.8-2.4)
[2023-10-31 17:41] LABS: THYROID STIMULATING HORMONE 2.115 uIU/ML (0.55-4.78); THYROXINE (T4) 5.5 UG/DL (4.5-10.9)
[2023-10-31 17:43] LABS: VENOUS BASE EXCESS -9.1 (-2.0-2.0); VENOUS HCO3 17.4 MMOL/L (23.0-27.0); VENOUS O2 SATURATION 82.5 % (60.0-80.0); VENOUS PARTIAL PRESSURE CO2 40.4 mmHg (38.0-50.0); VENOUS PARTIAL PRESSURE O2 51.5 mmHg (30.0-50.0); VENOUS PH 7.253 UNITS (7.330-7.430); VENOUS STANDARD HCO3 16.9 MMOL/L; VENOUS TOTAL CO2 18.7 MMOL/L (24.0-28.0)
[2023-10-31] MEDS ORDERED: NS 500 ML IV ONE (17:55)
[2023-10-31] MEDS ORDERED: MORPHINE 2 MG/ML 1ML VIAL IV PRN (21:40)
[2023-10-31] MEDS ORDERED: ERGO500029 PO (21:55)
[2023-10-31] MEDS ORDERED: HOME MED LIST COMPLETE! XX SCH (22:00)
[2023-11-01] MEDS ORDERED: NS 1,000 ML IV ONE (08:10)
[2023-11-01] MEDS ORDERED: allopurinoL 100 MG TAB PO SCH (09:00)
[2023-11-01] MEDS ORDERED: **hydrALAZINE** 10 MG TAB PO SCH (09:00)
[2023-11-01] MEDS ORDERED: SENOKOT S TAB PO SCH (09:00)
[2023-11-01] MEDS ORDERED: carBAMazepine 200MG TABLET PO SCH ×2 (09:00→21:00)
[2023-11-01] MEDS ORDERED: VALSARTAN 80 MG TAB (DIOVAN) PO SCH (09:00)
[2023-11-01] MEDS ORDERED: FOLIC ACID 1MG TAB PO SCH (09:00)
[2023-11-01] MEDS ORDERED: MIRALAX *UNIT DOSE* 17GM PACKET PO SCH (09:00)
[2023-11-01 09:13] VITALS: BP 151/73
[2023-11-01] MEDS: carBAMazepine XR 100 MG TAB PO SCH ×2 (09:52→11:31)
[2023-11-01 09:56] LABS: BASO % 0.4 % (0.0-1.0); HEMATOCRIT 25.5 % (42.0-52.0); HEMOGLOBIN 8.3 g/dl (13.5-17.5); LYMPH # 0.6 10^3/uL (1.5-5.0); LYMPH % 6.5 % (24.0-44.0); MEAN CORPUSCULAR HEMOGLOBIN 31.6 pg (27.0-33.0); MEAN CORPUSCULAR HGB CONC 32.5 g/dl (32.0-36.5); MONO # 0.7 10^3/uL (0.0-0.8); MONO % 7.4 % (2.0-8.0); NEUTROPHILS # 8.4 10^3/uL (1.5-8.5); NEUTROPHILS % 85.2 % (36.0-66.0); PLATELET COUNT, AUTOMATED 125 10^3/uL (150-450); RED BLOOD COUNT 2.63 10^6/uL (4.30-6.10); WHITE BLOOD COUNT 9.8 10^3/uL (4.0-10.0)
[2023-11-01 10:07] LABS: ERYTHROCYTE SEDIMENTATION RATE 12 mm/hr (0-20)
[2023-11-01 10:18] LABS: C REACTIVE PROTEIN QUANTITATIV 5.3 MG/DL (<1.0)
[2023-11-01 10:20] LABS: ALBUMIN 3.3 G/DL (3.2-5.2); BILIRUBIN,DIRECT 0.2 MG/DL (<0.4); BILIRUBIN,TOTAL 0.4 MG/DL (0.3-1.2); CALCIUM LEVEL 8.2 MG/DL (8.3-10.6); CREATININE FOR GFR 3.53 MG/DL (0.70-1.30); GLOMERULAR FILTRATION RATE 17.9 (>42); MAGNESIUM LEVEL 1.8 MG/DL (1.8-2.4); POTASSIUM SERUM 4.5 MMOL/L (3.5-5.1); TOTAL PROTEIN 5.7 G/DL (5.7-8.2)
[2023-11-01 10:27] LABS: PROCALCITONIN 2.59 ng/ml
[2023-11-01] MEDS ORDERED: SELF1KIT MC (10:52)
[2023-11-01] MEDS ORDERED: MAG SULF 1GM/100ML (MAG RUN) 1 GM in IV 1 EA IV ONE (11:00)
[2023-11-01 11:45] VITALS: BP 148/70; TEMP 98.6; O2SAT 98
[2023-11-01] MEDS ORDERED: DOXY-444 PO (13:45)
[2023-11-01] MEDS ORDERED: BACI1CAP PO (13:45)
[2023-11-01] MEDS ORDERED: CEFD300CAP PO (13:45)
[2023-11-01] MEDS ORDERED: SODI650T PO (13:48)
[2023-11-01] MEDS ORDERED: DOXYCYCLINE HYCLATE 100MG TABLET PO SCH (14:30)
[2023-11-01] MEDS ORDERED: SODIUM BICARBONATE 325 MG TAB PO SCH (14:30)
[2023-11-01] MEDS ORDERED: CEFDINIR 300 MG CAP (OMNICEF) PO SCH (15:00)
[2023-11-01] MEDS ORDERED: LACTOBACILLUS ACIDOPHILUS CAP (BACID) PO SCH (18:00)
[2023-11-01] MEDS ORDERED: carBAMazepine XR 200 MG TAB PO SCH (21:00)
[2023-11-01] MEDS ORDERED: CALCITRIOL 0.25 MCG CAP (S0169) PO SCH (21:00)
[2023-11-02] MEDS ORDERED: PANTOPRAZOLE 40MG TAB (PROTONIX) PO SCH (09:00)
[2023-11-02] MEDS ORDERED: VITAMIN D 50,000 UNITS CAPSULE (ERGOCALCIFEROL 1.25MG) PO SCH (09:00)
[2023-11-02] MEDS ORDERED: FERROUS SULFATE 325MG TAB PO SCH (21:00)
== END 2023-11-01 12:40 | disposition home or self-care (01) ==
LOC: M ED 16:03 → M ED INP 16:04
PROVIDERS: ADMIT General Practice; ATTEND General Practice
DX: R55 Syncope and collapse (principal); Z91.198 Patient's noncompliance with other medical treatment and regimen for other reason; I95.9 Hypotension, unspecified; Z79.899 Other long term (current) drug therapy; J18.9 Pneumonia, unspecified organism; R94.31 Abnormal electrocardiogram [ECG] [EKG]; I44.0 Atrioventricular block, first degree; R53.1 Weakness; D63.8 Anemia in other chronic diseases classified elsewhere; D69.6 Thrombocytopenia, unspecified; N18.4 Chronic kidney disease, stage 4 (severe); E87.21 Acute metabolic acidosis; Z86.73 Personal history of transient ischemic attack (TIA), and cerebral infarction without residual deficits; Z88.8 Allergy status to other drugs, medicaments and biological substances; Q61.3 Polycystic kidney, unspecified; K21.9 Gastro-esophageal reflux disease without esophagitis; E78.5 Hyperlipidemia, unspecified; G40.909 Epilepsy, unspecified, not intractable, without status epilepticus
CPT/HCPCS: 70450; 71045; 72082; 74176; 80048; 80053; 81001; 82248; 82330; 82803; 83605; 83735; 84145; 84436; 84443; 85025; 85652; 86140; 87040; 87486; 87581; 87633; 87798; 93005; 93041; 94760; 96374; 96376; 97161; 99285; G0378

== ENCOUNTER → 2023-12-17 | Outpatient (CLI) | payer OTHER ==
[~2023-12-17] MED LIST changes: +ATOR40TA75 PO; +BACI1CAP PO; +CEFD300CAP PO; +DOXY-444 PO; +ECOT81TA5 PO; +ERGO500029 PO; +SELF1KIT MC; +SODI650T PO
== END ==
LOC: M WHC 10:57
PROVIDERS: ATTEND Nurse Practitioner Family
DX: N62 Hypertrophy of breast (principal)
CPT/HCPCS: 77066; G0279

== ENCOUNTER → 2024-02-28 | Outpatient (REF) | payer OTHER ==
[~2024-02-28] MED LIST changes: +HYDR-161 PO; -HYDR10TAB PO; -HYDR50TA PO; +HYDR50TA47 PO; -SENN1TAB41 PO; +SENN1TAB85 PO
[2024-03-02 18:46] LABS: PERCENT SATURATION 49.5 % (19.7-50.0)
[2024-03-02 18:48] LABS: FERRITIN 405.4 NG/ML (10.5-307.3)
== END ==
LOC: M LAB REF 17:06
PROVIDERS: ATTEND Nurse Practitioner Family
DX: D50.9 Iron deficiency anemia, unspecified (principal)

== ENCOUNTER → 2024-06-02 | Outpatient (REF) | payer OTHER ==
[~2024-06-02] MED LIST changes: -CARB100T PO; +CARB100T11 PO; +DOXY-440 PO; -DOXY-444 PO; +FLUO-365 PO; -FLUO20CA22 PO
[2024-06-02 17:50] LABS: PERCENT SATURATION 44.2 % (19.7-50.0)
[2024-06-02 17:53] LABS: FERRITIN 426.6 NG/ML (10.5-307.3)
== END ==
LOC: M LAB REF 17:02
PROVIDERS: ATTEND Nurse Practitioner Family
DX: D50.9 Iron deficiency anemia, unspecified (principal)

== ENCOUNTER → 2025-01-08 | Outpatient (REF) | payer OTHER | LOC: M LAB REF 17:47 | PROVIDERS: ATTEND Nurse Practitioner Family | DX: Z79.899 Other long term (current) drug therapy (principal) ==

== ENCOUNTER → 2025-02-10 | Outpatient (REF) | payer OTHER | LOC: M LAB REF 16:58 | PROVIDERS: ATTEND Nurse Practitioner Family | DX: Z79.899 Other long term (current) drug therapy (principal) ==

== ENCOUNTER → 2025-07-23 | Outpatient (REF) | payer OTHER ==
[~2025-07-23] MED LIST changes: -FLOM0.4C39 PO; +PROZ10CA11 PO; -PROZ10CA7 PO; +TAMS-18 PO
[2025-07-23 18:17] LABS: IRON (FE) 158.0 UG/DL (65-175); PERCENT SATURATION 77.1 % (19.7-50.0)
== END ==
LOC: M LAB REF 16:48
PROVIDERS: ATTEND Nurse Practitioner Family
DX: D50.9 Iron deficiency anemia, unspecified (principal)